=== PATIENT | female | born 1975 | race Asian ===

== ENCOUNTER 2023-03-24 13:23 | Emergency (ER) | payer OTHER ==
[2023-03-24 13:31] VITALS: RESP 18; BMI 29.9
[2023-03-24] MEDS ORDERED: PIPERACILLIN/TAZOB 3.375 GM 3.375 GM in DEXTROSE 5%-WATER - 50 ML IVPB ONE (15:08)
[2023-03-24 15:12] LABS: BASO % 0.7 % (0-2.0); EOS % 2.8 % (0-4.5); HEMATOCRIT 22.7 % (32.4-45.2); HEMOGLOBIN 7.1 GM/dL (10.7-15.3); LYMPH % 25.5 % (8-40); MCH 30.8 pg (25.7-33.7); MCHC 31.1 g/dl (32.0-36.0); MEAN PLT VOLUME 7.9 fl (7.5-11.1); MONO % 10.1 % (3.8-10.2); NEUT % 60.9 % (42.8-82.8); PLATELET COUNT 144 10^3/uL (134-434); RDW 17.2 % (11.6-15.6); WHITE BLOOD COUNT 5.5 K/mm3 (4.0-10.0)
[2023-03-24] MEDS ORDERED: PIPERACILLIN/TAZOB 3.375 GM 3.375 GM/50 ML BAG IVPB ONE (15:17)
[2023-03-24 15:20] LABS: PH,URINE 8.5 (5.0-8.0); URINE APPEARANCE TURBID; URINE BILIRUBIN NEGATIVE (NEGATIVE); URINE COLOR DK YELLOW; URINE GLUCOSE (UA) NEGATIVE (NEGATIVE); URINE KETONE NEGATIVE (NEGATIVE); URINE LEUK ESTERASE NEGATIVE (NEGATIVE); URINE NITRITE NEGATIVE (NEGATIVE); URINE PROTEIN TRACE (NEGATIVE)
[2023-03-24 15:27] LABS: INR 1.59 (0.83-1.09); PROTHROMBIN TIME (PATIENT) 18.4 SEC (9.7-13.0)
[2023-03-24 15:30] LABS: ACTIVATED PTT 33.7 SECONDS (25.2-36.5)
[2023-03-24 15:45] LABS: ALBUMIN 2.7 g/dl (3.4-5.0); CALCIUM 8.3 mg/dL (8.5-10.1); MAGNESIUM 1.7 mg/dL (1.8-2.4)
[2023-03-24] MEDS ORDERED: MAG HYDROX/AL HYDROX/SIMETH -MYLANTA- ORAL SUSPENSION PO ONE (15:46)
[2023-03-24] MEDS ORDERED: FAMOTIDINE 20 MG/50 ML IVPB 20 MG/50 ML MG IVPB ONE ×2 (15:46→16:00)
[2023-03-24 15:48] LABS: CREATININE 0.8 mg/dL (0.55-1.3)
[2023-03-24 15:50] LABS: BILIRUBIN,TOTAL 1.5 mg/dL (0.2-1); TOT PROT 7.8 g/dl (6.4-8.2)
[2023-03-24] MEDS ORDERED: MAG HYDROX/AL HYDROX/SIMETH 30 ML UNIT-DOSE CUP ONE (16:00)
[2023-03-24 16:54] LABS: HCG,QUALITATIVE URINE Negative
[2023-03-24 19:27] VITALS: TEMP 98.7
[2023-03-24 19:29] VITALS: BP 121/71; PULSE 95
== END 2023-03-24 20:53 | disposition left against medical advice (07) ==
LOC: JER 13:23
PROC: 3E033GC Introduction of Other Therapeutic Substance into Peripheral Vein, Percutaneous Approach (ICD-10-PCS; principal; 2023-03-24)
DX: R79.9 Abnormal finding of blood chemistry, unspecified (principal); K70.30 Alcoholic cirrhosis of liver without ascites; D64.9 Anemia, unspecified; R10.13 Epigastric pain; R07.9 Chest pain, unspecified; R10.12 Left upper quadrant pain
CPT/HCPCS: 36415; 36430; 74177-TC; 80053; 81003; 82272; 83690; 83735; 84703; 85025; 85610; 85730; 86850; 86900; 86901; 86922; 93005; 93010; 99285-25; P9058; Q9967

== ENCOUNTER 2023-05-23 06:32 | Emergency (ER) | payer OTHER ==
[2023-05-23 06:42] VITALS: BMI 28.3
[2023-05-23] MEDS ORDERED: LIDOCAINE 5% TOPICAL PATCH TP ONE (07:23)
[2023-05-23] MEDS ORDERED: LACTATED RINGERS SOLUTION 1000 ML INFUS.BAG IV ONE (07:24)
[2023-05-23] MEDS ORDERED: ACETAMINOPHEN 1000 MG/100 ML BAG IVPB ONE ×2 (07:24→12:01)
[2023-05-23] MEDS ORDERED: LIDOCAINE 4% PATCH TP ONE (08:59)
[2023-05-23 09:03] LABS: INR 1.51 (0.83-1.09); PROTHROMBIN TIME (PATIENT) 17.5 SEC (9.7-13.0)
[2023-05-23 09:05] LABS: BASO % 0.7 % (0-2.0); EOS % 4.1 % (0-4.5); HEMATOCRIT 21.7 % (32.4-45.2); LYMPH % 43.2 % (8-40); MCH 25.1 pg (25.7-33.7); MCHC 31.5 g/dl (32.0-36.0); MEAN PLT VOLUME 7.4 fl (7.5-11.1); MONO % 10.4 % (3.8-10.2); NEUT % 41.6 % (42.8-82.8); PLATELET COUNT 149 10^3/uL (134-434); POTASSIUM 3.6 mmol/L (3.5-5.1); RBC 2.72 M/mm3 (3.60-5.2); RDW 18.4 % (11.6-15.6); WHITE BLOOD COUNT 5.1 K/mm3 (4.0-10.0)
[2023-05-23 09:06] LABS: CALCIUM 7.9 mg/dL (8.5-10.1)
[2023-05-23 09:06] LABS: ACTIVATED PTT 32.6 SECONDS (25.2-36.5)
[2023-05-23 09:08] LABS: ALBUMIN 2.5 g/dl (3.4-5.0); BLOOD UREA NITROGEN 10.2 mg/dL (7-18)
[2023-05-23 09:11] LABS: CREATININE 0.6 mg/dL (0.55-1.3)
[2023-05-23 09:12] LABS: HEMOGLOBIN 6.8 GM/dL (10.7-15.3)
[2023-05-23 09:13] LABS: BILIRUBIN,TOTAL 0.6 mg/dL (0.2-1); TOT PROT 7.2 g/dl (6.4-8.2)
[2023-05-23] MEDS ORDERED: MAGNESIUM SULF 50% (8.12 MEQ/2 ML-1 GM VIAL) IVPB ONE (09:37)
[2023-05-23] MEDS ORDERED: MAGNESIUM SULFATE IN WATER 2 GM/50 ML IVPB IVPB ONE (10:13)
[2023-05-23] MEDS ORDERED: ACETAMINOPHEN INJECTION 100 ML IVPB ONE (12:02)
[2023-05-23 16:00] VITALS: RESP 14
[2023-05-23 16:01] VITALS: BP 118/56; PULSE 96; TEMP 97.8
[2023-05-23] MEDS ORDERED: LIDOCAINE PATCH REMOVAL MC SCH (22:00)
== END 2023-05-23 16:31 | disposition left against medical advice (07) ==
LOC: JER 06:32 → JERBED 09:33 → UNDOADMOB 09:33 → JER 16:31
PROC: 3E033GC Introduction of Other Therapeutic Substance into Peripheral Vein, Percutaneous Approach (ICD-10-PCS; principal; 2023-05-23)
PROC: 3E033GC Introduction of Other Therapeutic Substance into Peripheral Vein, Percutaneous Approach (ICD-10-PCS; 2023-05-23)
DX: S39.92XA Unspecified injury of lower back, initial encounter (principal); G89.29 Other chronic pain; M54.9 Dorsalgia, unspecified; D64.9 Anemia, unspecified; F10.929 Alcohol use, unspecified with intoxication, unspecified; W01.198A Fall on same level from slipping, tripping and stumbling with subsequent striking against other object, initial encounter; Y93.89 Activity, other specified
CPT/HCPCS: 36415; 36430; 70450-TC; 71045-TC-FY; 72070-TC-FY; 72170-TC-FY; 80053; 80307; 82140; 82728; 83540; 83550; 83615; 83735; 84466; 84484; 84703; 85025; 85610; 85730; 86850; 86900; 86901; 86922; 93005; 93010; 99285-25; P9058

== ENCOUNTER 2023-05-27 18:39 | Emergency (ER) | payer OTHER ==
[2023-05-27 19:16] VITALS: BP 119/76; PULSE 87; RESP 18; TEMP 97.7; BMI 28.8
[2023-05-27] MEDS ORDERED: LACTATED RINGERS SOLUTION 1000 ML INFUS.BAG IV ONE (19:57)
[2023-05-27] MEDS ORDERED: FAMOTIDINE 20 MG/50 ML IVPB 20 MG/50 ML MG IVPB ONE (20:10)
[2023-05-27] MEDS ORDERED: LIDOCAINE 5% TOPICAL PATCH TP ONE ×2 (20:14→20:35)
[2023-05-27] MEDS ORDERED: PANTOPRAZOLE SODIUM 40 MG VIAL IVPUSH ONE (20:17)
[2023-05-27] MEDS ORDERED: LIDOCAINE 4% PATCH TP ONE ×2 (20:26→20:37)
[2023-05-27] MEDS ORDERED: PANTOPRAZOLE SODIUM 40 MG VIAL ONE (20:27)
[2023-05-27 21:11] LABS: BASO % 0.4 % (0-2.0); EOS % 1.4 % (0-4.5); HEMATOCRIT 28.4 % (32.4-45.2); HEMOGLOBIN 9.1 GM/dL (10.7-15.3); LYMPH % 28.7 % (8-40); MCH 25.3 pg (25.7-33.7); MCHC 31.9 g/dl (32.0-36.0); MEAN CELL VOLUME 79.3 fl (80-96); MEAN PLT VOLUME 7.3 fl (7.5-11.1); NEUT % 64.5 % (42.8-82.8); PLATELET COUNT 120 10^3/uL (134-434); RBC 3.58 M/mm3 (3.60-5.2); RDW 18.3 % (11.6-15.6); WHITE BLOOD COUNT 5.9 K/mm3 (4.0-10.0)
[2023-05-27 21:21] LABS: INR 1.64 (0.83-1.09); PROTHROMBIN TIME (PATIENT) 18.9 SEC (9.7-13.0)
[2023-05-27 21:23] LABS: ACTIVATED PTT 35.9 SECONDS (25.2-36.5)
[2023-05-27 21:30] LABS: POTASSIUM 3.9 mmol/L (3.5-5.1)
[2023-05-27 21:32] LABS: BLOOD UREA NITROGEN 9.7 mg/dL (7-18); CALCIUM 8.2 mg/dL (8.5-10.1); MAGNESIUM 1.6 mg/dL (1.8-2.4)
[2023-05-27 21:33] LABS: ALBUMIN 2.9 g/dl (3.4-5.0)
[2023-05-27] MEDS ORDERED: MAGNESIUM SULF 50% (8.12 MEQ/2 ML-1 GM VIAL) IVPB ONE (21:34)
[2023-05-27 21:35] LABS: CREATININE 0.7 mg/dL (0.55-1.3)
[2023-05-27 21:37] LABS: BILIRUBIN,TOTAL 1.7 mg/dL (0.2-1)
[2023-05-27] MEDS ORDERED: MAGNESIUM SULFATE IN WATER 2 GM/50 ML IVPB IVPB ONE (21:53)
[2023-05-27] MEDS ORDERED: LIDOCAINE PATCH REMOVAL MC SCH ×2 (22:00)
[2023-05-27 22:07] LABS: ANISOCYTOSIS 3+; MACROCYTOSIS 0; OVALOCYTE 1+; TARGET CELLS 1+
== END 2023-05-27 22:50 | disposition home or self-care (01) ==
LOC: JER 18:39 → EDBD 18:39 → JER 22:50
PROC: 3E033NZ Introduction of Analgesics, Hypnotics, Sedatives into Peripheral Vein, Percutaneous Approach (ICD-10-PCS; principal; 2023-05-27)
PROC: 3E033GC Introduction of Other Therapeutic Substance into Peripheral Vein, Percutaneous Approach (ICD-10-PCS; 2023-05-27)
DX: R42 Dizziness and giddiness (principal); M54.6 Pain in thoracic spine; D64.9 Anemia, unspecified; F10.920 Alcohol use, unspecified with intoxication, uncomplicated; Y90.9 Presence of alcohol in blood, level not specified
CPT/HCPCS: 36415; 80053; 82272; 83690; 83735; 85025; 85610; 85730; 86850; 86900; 86901; 99284-25

== ENCOUNTER 2023-12-01 22:31 | Inpatient (IN) | payer OTHER ==
[2023-12-01 22:48] VITALS: BMI 29.2
[2023-12-01] MEDS: SODIUM CHLORIDE 0.9% 500 ML INFUS.BAG IV ONE (23:33)
[2023-12-01 23:37] LABS: BASO % 0.6 % (0-2.0); EOS % 1.4 % (0-4.5); HEMATOCRIT 28.6 % (32.4-45.2); LYMPH % 32.2 % (8-40); MCH 30.9 pg (25.7-33.7); MCHC 35.2 g/dl (32.0-36.0); MEAN CELL VOLUME 87.8 fl (80-96); MEAN PLT VOLUME 8.1 fl (7.5-11.1); MONO % 4.8 % (3.8-10.2); PLATELET COUNT 113 10^3/uL (134-434); RBC 3.25 M/mm3 (3.60-5.2); RDW 18.7 % (11.6-15.6); WHITE BLOOD COUNT 8.5 K/mm3 (4.0-10.0)
[2023-12-01] MEDS ORDERED: diazePAM CARPU-JECT 10 MG/2 ML DISP.SYRIN ONE (23:44)
[2023-12-01] MEDS ORDERED: ONDANSETRON 4 MG/2 ML VIAL ONE (23:45)
[2023-12-01] MEDS ORDERED: PANTOPRAZOLE SODIUM 40 MG VIAL ONE (23:45)
[2023-12-01 23:46] LABS: INR 1.94 (0.83-1.09); PROTHROMBIN TIME (PATIENT) 21.9 SEC (9.7-13.0)
[2023-12-01 23:48] LABS: ACTIVATED PTT 48.6 SECONDS (25.2-36.5)
[2023-12-02 00:08] LABS: POTASSIUM 3.8 mmol/L (3.5-5.1)
[2023-12-02 00:11] LABS: CALCIUM 8.2 mg/dL (8.5-10.1)
[2023-12-02 00:12] LABS: ALBUMIN 2.6 g/dl (3.4-5.0); MAGNESIUM 1.5 mg/dL (1.8-2.4)
[2023-12-02 00:15] LABS: CREATININE 0.9 mg/dL (0.55-1.3); PHOSPHOROUS 2.9 mg/dL (2.5-4.9)
[2023-12-02 00:17] LABS: BILIRUBIN,TOTAL 2.5 mg/dL (0.2-1); TOT PROT 8.1 g/dl (6.4-8.2)
[2023-12-02] MEDS: ONDANSETRON 4 MG/2 ML VIAL IVPUSH ONE (00:21)
[2023-12-02] MEDS: PANTOPRAZOLE SODIUM 40 MG VIAL IVPUSH ONE (00:21)
[2023-12-02] MEDS: diazePAM CARPU-JECT 10 MG/2 ML DISP.SYRIN IVPUSH ONE (00:21)
[2023-12-02] MEDS: LACTATED RINGERS SOLUTION 1000 ML INFUS.BAG IV ONE (00:22)
[2023-12-02 00:30] LABS: BLOOD UREA NITROGEN 8.8 mg/dL (7-18)
[2023-12-02 00:36] VITALS: RESP 16
[2023-12-02] MEDS ORDERED: CEFTRIAXONE 1 GM/50 ML BAG ONE (01:28)
[2023-12-02] MEDS ORDERED: METHOCARBAMOL 500 MG TABLET ONE (01:28)
[2023-12-02] MEDS ORDERED: LIDOCAINE 4% PATCH TP ONE (01:28)
[2023-12-02] MEDS ORDERED: OCTREOTIDE ACETATE 100 MCG/1 ML ONE (01:29)
[2023-12-02] MEDS: METHOCARBAMOL 500 MG TABLET PO ONE (01:45)
[2023-12-02] MEDS: LIDOCAINE 4% PATCH TP ONE (01:45)
[2023-12-02] MEDS: OCTREOTIDE ACETATE 50 MCG/1 ML - 1 ML VIAL IVPUSH ONE (01:46)
[2023-12-02] MEDS: LACTATED RINGERS SOLUTION 1,000 ML/1,000 ML INFUS.BAG IV SCH (01:46)
[2023-12-02] MEDS ORDERED: MAGNESIUM SULFATE IN WATER 2 GM/50 ML IVPB IVPB ONE (01:47)
[2023-12-02] MEDS: MAGNESIUM SULFATE IN WATER 2 GM/50 ML IVPB IVPB ONE (01:55)
[2023-12-02] MEDS: CEFTRIAXONE 1,000 MG in DEXTROSE 5%-WATER - 50 ML IVPB ONE (02:49)
[2023-12-02] MEDS: LACTULOSE 20 GM/30 ML UDC (FOR RECTAL USE ONLY) PR ONE (05:30)
[2023-12-02 07:04] LABS: BILIRUBIN,DIRECT 1.1 mg/dL (0.0-0.2)
[2023-12-02 08:27] LABS: BASO % 0.3 % (0-2.0); EOS % 1.3 % (0-4.5); HEMATOCRIT 26.5 % (32.4-45.2); HEMOGLOBIN 9.1 GM/dL (10.7-15.3); LYMPH % 25.1 % (8-40); MCH 30.8 pg (25.7-33.7); MCHC 34.5 g/dl (32.0-36.0); MEAN CELL VOLUME 89.3 fl (80-96); MEAN PLT VOLUME 7.8 fl (7.5-11.1); MONO % 5.3 % (3.8-10.2); PLATELET COUNT 85 10^3/uL (134-434); RBC 2.97 M/mm3 (3.60-5.2); RDW 18.5 % (11.6-15.6); WHITE BLOOD COUNT 5.4 K/mm3 (4.0-10.0)
[2023-12-02 10:03] VITALS: BP 107/62; PULSE 81; TEMP 98.6
[2023-12-02] MEDS ORDERED: LORazepam 1 MG TABLET PO PRN (11:18)
[2023-12-02] MEDS: FOLIC ACID INJECTION - 1 MG, THIAMINE HCL 100 MG, MULTIVIT INJECTION ADULT 10 ML in SOD... IVPB ONE (12:19)
[2023-12-02] MEDS ORDERED: chlordiazePOXIDE HCL 25 MG CAPSULE PO SCH (17:00)
[2023-12-02] MEDS ORDERED: CARVEDILOL 3.125 MG TABLET (FP) PO SCH (22:00)
[2023-12-02] MEDS ORDERED: LIDOCAINE PATCH REMOVAL MC SCH (22:00)
[2023-12-02] MEDS ORDERED: PANTOPRAZOLE SODIUM 40 MG VIAL IVPUSH SCH (22:00)
[2023-12-02] MEDS ORDERED: RIFAXIMIN 550 MG TABLET PO SCH (22:00)
[2023-12-03] MEDS ORDERED: THIAMINE HCL 200 MG/2 ML VIAL IM SCH (10:00)
[2023-12-03] MEDS ORDERED: FOLIC ACID 1 MG TABLET (FP) PO SCH (10:00)
== END 2023-12-02 12:45 | disposition left against medical advice (07) | DRG 241 ==
LOC: JER 22:31 → JERBED 12-02 06:48
PROVIDERS: ADMIT Internal Medicine; ATTEND Internal Medicine
DX: K29.21 Alcoholic gastritis with bleeding (principal); D69.6 Thrombocytopenia, unspecified; D68.9 Coagulation defect, unspecified; K70.10 Alcoholic hepatitis without ascites; K70.30 Alcoholic cirrhosis of liver without ascites; F10.10 Alcohol abuse, uncomplicated; I10 Essential (primary) hypertension
CPT/HCPCS: 0241U-QW; 36415; 71046-TC-FY; 71275-TC; 76705-TC; 80053; 80307; 82140; 82248; 83690; 83735; 84100; 84484; 84703; 85025; 85379; 85610; 85730; 86850; 86900; 86901; 93005; 93010; 99285-25; Q9967

== ENCOUNTER 2023-12-20 19:09 | Observation (INO) | payer OTHER ==
[2023-12-20 19:19] VITALS: BMI 29.2
[2023-12-20] MEDS ORDERED: ONDANSETRON 4 MG/2 ML VIAL ONE (20:55)
[2023-12-20] MEDS ORDERED: PANTOPRAZOLE SODIUM 40 MG VIAL ONE (20:55)
[2023-12-20 20:59] LABS: BASO % 0.5 % (0-2.0); EOS % 0.8 % (0-4.5); HEMOGLOBIN 9.7 GM/dL (10.7-15.3); LYMPH % 25.1 % (8-40); MCH 30.4 pg (25.7-33.7); MCHC 33.5 g/dl (32.0-36.0); MEAN CELL VOLUME 90.9 fl (80-96); MEAN PLT VOLUME 7.9 fl (7.5-11.1); MONO % 5.2 % (3.8-10.2); NEUT % 68.4 % (42.8-82.8); RBC 3.19 M/mm3 (3.60-5.2); RDW 18.8 % (11.6-15.6); WHITE BLOOD COUNT 3.6 K/mm3 (4.0-10.0)
[2023-12-20 21:01] LABS: PLATELET COUNT 32 10^3/uL (134-434)
[2023-12-20] MEDS: LACTATED RINGERS SOLUTION 1000 ML INFUS.BAG IV ONE (21:04)
[2023-12-20] MEDS: PANTOPRAZOLE SODIUM 40 MG VIAL IVPUSH ONE (21:04)
[2023-12-20] MEDS: ONDANSETRON 4 MG/2 ML VIAL IVPUSH ONE (21:04)
[2023-12-20 21:07] LABS: INR 1.68 (0.83-1.09); PROTHROMBIN TIME (PATIENT) 18.7 SEC (9.7-13.0)
[2023-12-20 21:10] LABS: ACTIVATED PTT 34.3 SECONDS (25.2-36.5)
[2023-12-20 21:27] LABS: CALCIUM 7.6 mg/dL (8.5-10.1)
[2023-12-20 21:28] LABS: ALBUMIN 2.7 g/dl (3.4-5.0); BLOOD UREA NITROGEN 6.7 mg/dL (7-18)
[2023-12-20 21:31] LABS: CREATININE 0.7 mg/dL (0.55-1.3)
[2023-12-20 21:32] LABS: BILIRUBIN,TOTAL 4.3 mg/dL (0.2-1); TOT PROT 7.7 g/dl (6.4-8.2)
[2023-12-20] MEDS ORDERED: POTASSIUM CHLORIDE ORAL LIQUID 20 MEQ/15 ML ONE (21:56)
[2023-12-20] MEDS: POTASSIUM CHLORIDE ORAL LIQUID 20 MEQ/15 ML PO ONE (22:00)
[2023-12-20] MEDS ORDERED: diazePAM CARPU-JECT 10 MG/2 ML DISP.SYRIN ONE (22:57)
[2023-12-20] MEDS: diazePAM CARPU-JECT 10 MG/2 ML DISP.SYRIN IVPUSH ONE (23:05)
[2023-12-21] MEDS: IBUPROFEN 800 MG/8 ML IJ IVPB PRN (03:46)
[2023-12-21] MEDS: LIDOCAINE 5% TOPICAL PATCH TP ONE (03:46)
[2023-12-21] MEDS ORDERED: diazePAM 5 MG TABLET PO PRN (03:52)
[2023-12-21] MEDS: POTASSIUM CHLORIDE ORAL LIQUID 20 MEQ/15 ML PO ONE (04:42)
[2023-12-21] MEDS: KCL 10 MEQ IVPB 10 MEQ/100 ML INFUS.BAG IVPB SCH (04:43)
[2023-12-21] MEDS: SODIUM CHLORIDE 1,000 ML IV SCH (04:43)
[2023-12-21] MEDS: diazePAM 5 MG TABLET PO SCH (05:04)
[2023-12-21] MEDS: FOLIC ACID INJECTION - 1 MG, THIAMINE HCL 100 MG, MULTIVIT INJECTION ADULT 10 ML in SOD... IVPB ONE (06:40)
[2023-12-21 07:52] LABS: BASO % 0.6 % (0-2.0); EOS % 2.3 % (0-4.5); LYMPH % 33.7 % (8-40); MCHC 33.3 g/dl (32.0-36.0); MEAN CELL VOLUME 92.9 fl (80-96); MONO % 6.9 % (3.8-10.2); NEUT % 56.5 % (42.8-82.8); RBC 2.91 M/mm3 (3.60-5.2); RDW 18.5 % (11.6-15.6); WHITE BLOOD COUNT 2.7 K/mm3 (4.0-10.0)
[2023-12-21 08:01] LABS: PLATELET COUNT 28 10^3/uL (134-434)
[2023-12-21 08:12] LABS: CHLORIDE 107 mmol/L (98-107); POTASSIUM 3.9 mmol/L (3.5-5.1); SODIUM 138 mmol/L (136-145)
[2023-12-21 08:14] LABS: CALCIUM 7.2 mg/dL (8.5-10.1)
[2023-12-21 08:15] LABS: ALBUMIN 2.4 g/dl (3.4-5.0); ANION GAP 9 mmol/L (4-13); CO2 23 mmol/L (21-32); GLUCOSE,RANDOM 77 mg/dL (74-106); MAGNESIUM 1.6 mg/dL (1.8-2.4)
[2023-12-21 08:16] LABS: ALBUMIN 2.5 g/dl (3.4-5.0)
[2023-12-21 08:18] LABS: BILIRUBIN,DIRECT 2.7 mg/dL (0.0-0.2); CREATININE 0.7 mg/dL (0.55-1.3); PHOSPHOROUS 1.7 mg/dL (2.5-4.9); SGOT/AST 340 U/L (15-37); SGPT/ALT 92 U/L (13-61)
[2023-12-21 08:19] LABS: BILIRUBIN,TOTAL 4.3 mg/dL (0.2-1); TOT PROT 7.1 g/dl (6.4-8.2)
[2023-12-21 08:20] LABS: ALK PHOS 150 U/L (45-117); BILIRUBIN,TOTAL 4.8 mg/dL (0.2-1); TOT PROT 7.1 g/dl (6.4-8.2)
[2023-12-21] MEDS ORDERED: LORazepam 1 MG TABLET PO PRN (09:58)
[2023-12-21] MEDS ORDERED: LIDOCAINE 4% PATCH TP SCH (10:00)
[2023-12-21] MEDS: CARVEDILOL 6.25 MG TABLET (FP) PO SCH (10:36)
[2023-12-21] MEDS: LORazepam 1 MG TABLET PO SCH (10:37)
[2023-12-21] MEDS: RIFAXIMIN 550 MG TABLET PO SCH (10:37)
[2023-12-21] MEDS: LORazepam 2 MG TABLET PO ONE (10:39)
[2023-12-21] MEDS: PANTOPRAZOLE SODIUM 40 MG VIAL IVPUSH SCH (10:39)
[2023-12-21] MEDS: LACTULOSE 20 GM/30 ML UDC (FOR ORAL USE ONLY) PO SCH (10:39)
[2023-12-21] MEDS ORDERED: PrednisoLONE 15 MG/5 ML UNIT-DOSE CUP PO ONE (11:00)
[2023-12-21 11:14] LABS: INR 1.75 (0.83-1.09); PROTHROMBIN TIME (PATIENT) 19.8 SEC (9.7-13.0)
[2023-12-21] MEDS: PrednisoLONE 15 MG/5 ML UNIT-DOSE CUP PO ONE (12:26)
[2023-12-21] MEDS ORDERED: MIDAZOLAM HCL 2 MG/2 ML SINGLE DOSE VIAL ONE (14:24)
[2023-12-21] MEDS: TETRACAINE/BENZOCAINE/BUTAMBEN 20 GM SPR TP ONE (14:32)
[2023-12-21] MEDS: METHYL SALICYLATE/MENTHOL 30 GM TUBE TP SCH (15:11)
[2023-12-21] MEDS: CEFTRIAXONE 1 GM in DEXTROSE 5%-WATER - 50 ML IVPB SCH (15:34)
[2023-12-21] MEDS: PrednisoLONE 15 MG/5 ML UNIT-DOSE CUP PO SCH (15:34)
[2023-12-21] MEDS: LIDOCAINE PATCH REMOVAL MC ONE (15:34)
[2023-12-21] MEDS: MAGNESIUM 2GM/50ML STERILE WATER IVPB IVPB ONE (17:56)
[2023-12-21 18:14] VITALS: RESP 16
[2023-12-21 21:43] VITALS: BP 122/79; PULSE 89; TEMP 98.2
[2023-12-21] MEDS ORDERED: LIDOCAINE PATCH REMOVAL MC SCH (22:00)
[2023-12-21] MEDS ORDERED: PANTOPRAZOLE SODIUM 40 MG VIAL IVPUSH SCH (22:00)
[2023-12-22] MEDS ORDERED: diazePAM 5 MG TABLET PO SCH (06:00)
[2023-12-22] MEDS ORDERED: LACTULOSE 20 GM/30 ML UDC (FOR ORAL USE ONLY) PO SCH (10:00)
[2023-12-23] MEDS ORDERED: LORazepam 1 MG TABLET PO SCH (05:00)
[2023-12-23] MEDS ORDERED: diazePAM 5 MG TABLET PO SCH (06:00)
[2023-12-24] MEDS ORDERED: LORazepam 0.5 MG TABLET PO PRN
[2023-12-24] MEDS ORDERED: LORazepam 0.5 MG TABLET PO SCH (05:00)
[2023-12-24] MEDS ORDERED: diazePAM 5 MG TABLET PO ONE (06:00)
[2023-12-25] MEDS ORDERED: LORazepam 0.5 MG TABLET PO ONE (05:00)
== END 2023-12-21 21:00 | disposition left against medical advice (07) ==
LOC: JER 19:09 → JERBED 22:09 → J4W 12-21 03:39
PROVIDERS: ADMIT Internal Medicine; ATTEND Internal Medicine
PROC: 3E03329 Introduction of Other Anti-infective into Peripheral Vein, Percutaneous Approach (ICD-10-PCS; principal; 2023-12-20)
PROC: 3E033GC Introduction of Other Therapeutic Substance into Peripheral Vein, Percutaneous Approach (ICD-10-PCS; 2023-12-20)
PROC: 3E0337Z Introduction of Electrolytic and Water Balance Substance into Peripheral Vein, Percutaneous Approach (ICD-10-PCS; 2023-12-20)
PROC: 3E033NZ Introduction of Analgesics, Hypnotics, Sedatives into Peripheral Vein, Percutaneous Approach (ICD-10-PCS; 2023-12-20)
DX: K27.9 Peptic ulcer, site unspecified, unspecified as acute or chronic, without hemorrhage or perforation (principal); D69.6 Thrombocytopenia, unspecified; F10.99 Alcohol use, unspecified with unspecified alcohol-induced disorder; I85.00 Esophageal varices without bleeding; K70.31 Alcoholic cirrhosis of liver with ascites; R74.01 Elevation of levels of liver transaminase levels; E87.6 Hypokalemia; Z29.89 Encounter for other specified prophylactic measures; K76.82 Hepatic encephalopathy; K76.6 Portal hypertension
CPT/HCPCS: 36415; 36430; 71045-TC-FY; 80053; 80076; 83690; 83735; 84100; 84702; 85025; 85610; 85730; 86922; 87635; 93005; 93010; 96361; 96365; 96367; 96375; 96376; 99285-25; G0378; P9034

== ENCOUNTER 2023-12-28 14:13 | Inpatient (IN) | payer OTHER ==
[2023-12-28 14:26] VITALS: BP 115/79; PULSE 100; RESP 18; TEMP 98.3; BMI 29.2
[2023-12-28] MEDS ORDERED: TRIMETHOBENZAMIDE HCL 200MG/2ML INJ IM ONE (15:58)
[2023-12-28 16:11] LABS: BASO % 0.9 % (0-2.0); EOS % 2.1 % (0-4.5); HEMATOCRIT 28.8 % (32.4-45.2); HEMOGLOBIN 9.4 GM/dL (10.7-15.3); MCH 30.1 pg (25.7-33.7); MCHC 32.5 g/dl (32.0-36.0); MEAN CELL VOLUME 92.7 fl (80-96); MEAN PLT VOLUME 7.4 fl (7.5-11.1); MONO % 16.3 % (3.8-10.2); NEUT % 55.7 % (42.8-82.8); PLATELET COUNT 70 10^3/uL (134-434); RBC 3.11 M/mm3 (3.60-5.2); RDW 21.8 % (11.6-15.6)
[2023-12-28] MEDS: SODIUM CHLORIDE 1,000 ML IV STA (16:20)
[2023-12-28] MEDS: TRIMETHOBENZAMIDE HCL 200MG/2ML INJ IM ONE (16:21)
[2023-12-28 16:32] LABS: POTASSIUM 3.6 mmol/L (3.5-5.1)
[2023-12-28 16:34] LABS: CALCIUM 7.6 mg/dL (8.5-10.1)
[2023-12-28 16:35] LABS: ALBUMIN 2.3 g/dl (3.4-5.0); BLOOD UREA NITROGEN 9.4 mg/dL (7-18); MAGNESIUM 1.7 mg/dL (1.8-2.4)
[2023-12-28 16:38] LABS: CREATININE 0.6 mg/dL (0.55-1.3)
[2023-12-28 16:39] LABS: BILIRUBIN,TOTAL 3.1 mg/dL (0.2-1); TOT PROT 7.3 g/dl (6.4-8.2)
[2023-12-28 16:49] LABS: ANISOCYTOSIS 2+; MACROCYTOSIS 1+; TARGET CELLS 1+
[2023-12-28] MEDS ORDERED: TRIMETHOBENZAMIDE HCL 200MG/2ML INJ IM PRN (17:44)
[2023-12-28] MEDS ORDERED: MAGNESIUM SULF 50% (8.12 MEQ/2 ML-1 GM VIAL) IVPB ONE (17:48)
[2023-12-28] MEDS ORDERED: MULTIVITAMINS (DAILY MVI) TABLET (FP) PO SCH (18:15)
[2023-12-28] MEDS ORDERED: THIAMINE 100 MG TABLET PO SCH (22:00)
[2023-12-28] MEDS ORDERED: RIFAXIMIN 550 MG TABLET PO SCH (22:00)
[2023-12-28] MEDS ORDERED: LACTULOSE 20 GM/30 ML UDC (FOR ORAL USE ONLY) PO SCH (22:00)
[2023-12-28] MEDS ORDERED: CARVEDILOL 6.25 MG TABLET (FP) PO SCH (22:00)
[2023-12-29] MEDS ORDERED: FOLIC ACID 1 MG TABLET (FP) PO SCH (10:00)
== END 2023-12-28 18:10 | disposition left against medical advice (07) | DRG 282 ==
LOC: JER 14:13 → JERBED 16:56
PROVIDERS: ADMIT Internal Medicine; ATTEND Internal Medicine
DX: K85.90 Acute pancreatitis without necrosis or infection, unspecified (principal); E83.42 Hypomagnesemia; K70.30 Alcoholic cirrhosis of liver without ascites; K70.10 Alcoholic hepatitis without ascites; F10.10 Alcohol abuse, uncomplicated; R11.2 Nausea with vomiting, unspecified
CPT/HCPCS: 0241U-QW; 36415; 71046-TC-FY; 80053; 83690; 83735; 84484; 85025; 93005; 93010; 99285-25

== ENCOUNTER 2023-12-28 22:18 | Inpatient (IN) | payer OTHER ==
[2023-12-28 22:31] VITALS: TEMP 97.7; BMI 29.2
[2023-12-28 23:44] LABS: HEMATOCRIT 30.5 % (32.4-45.2); HEMOGLOBIN 9.8 GM/dL (10.7-15.3); MCH 29.9 pg (25.7-33.7); MEAN CELL VOLUME 93.5 fl (80-96); MEAN PLT VOLUME 7.3 fl (7.5-11.1); PLATELET COUNT 78 10^3/uL (134-434); RBC 3.27 M/mm3 (3.60-5.2); RDW 22.8 % (11.6-15.6); WHITE BLOOD COUNT 3.4 K/mm3 (4.0-10.0)
[2023-12-28] MEDS ORDERED: ACETAMINOPHEN INJECTION 100 ML IVPB ONE (23:44)
[2023-12-28] MEDS: ACETAMINOPHEN 1000 MG/100 ML BAG IVPB ONE (23:47)
[2023-12-29 00:05] LABS: CHLORIDE 112 mmol/L (98-107); POTASSIUM 3.7 mmol/L (3.5-5.1); SODIUM 144 mmol/L (136-145)
[2023-12-29 00:07] LABS: CALCIUM 7.8 mg/dL (8.5-10.1)
[2023-12-29 00:08] LABS: ALBUMIN 2.4 g/dl (3.4-5.0); ANION GAP 9 mmol/L (4-13); BLOOD UREA NITROGEN 9.2 mg/dL (7-18); CO2 24 mmol/L (21-32); GLUCOSE,RANDOM 125 mg/dL (74-106); MAGNESIUM 1.7 mg/dL (1.8-2.4)
[2023-12-29 00:11] LABS: CREATININE 0.6 mg/dL (0.55-1.3); SGOT/AST 342 U/L (15-37); SGPT/ALT 99 U/L (13-61)
[2023-12-29 00:12] LABS: BILIRUBIN,TOTAL 3.6 mg/dL (0.2-1); TOT PROT 7.4 g/dl (6.4-8.2)
[2023-12-29 00:14] LABS: ALK PHOS 254 U/L (45-117)
[2023-12-29] MEDS ORDERED: MAGNESIUM SULFATE IN WATER 2 GM/50 ML IVPB IVPB ONE (02:48)
[2023-12-29] MEDS: MAGNESIUM 2GM/50ML STERILE WATER IVPB IVPB ONE (02:51)
[2023-12-29] MEDS ORDERED: LORazepam 1 MG TABLET PO PRN (04:27)
[2023-12-29] MEDS ORDERED: LORazepam 1 MG TABLET ONE ×2 (05:17→10:38)
[2023-12-29] MEDS: LORazepam 1 MG TABLET PO ONE (05:19)
[2023-12-29] MEDS: LORazepam 1 MG TABLET PO SCH (05:21)
[2023-12-29 05:57] LABS: BASO % 1.2 % (0-2.0); EOS % 1.7 % (0-4.5); HEMATOCRIT 27.3 % (32.4-45.2); HEMOGLOBIN 8.8 GM/dL (10.7-15.3); MCH 30.2 pg (25.7-33.7); MCHC 32.5 g/dl (32.0-36.0); MEAN CELL VOLUME 93.1 fl (80-96); MEAN PLT VOLUME 7.4 fl (7.5-11.1); MONO % 14.9 % (3.8-10.2); NEUT % 47.2 % (42.8-82.8); PLATELET COUNT 64 10^3/uL (134-434); RBC 2.93 M/mm3 (3.60-5.2); RDW 21.8 % (11.6-15.6); WHITE BLOOD COUNT 3.1 K/mm3 (4.0-10.0)
[2023-12-29 06:17] LABS: POTASSIUM 3.6 mmol/L (3.5-5.1)
[2023-12-29 06:19] LABS: CALCIUM 7.6 mg/dL (8.5-10.1)
[2023-12-29 06:20] LABS: ALBUMIN 2.2 g/dl (3.4-5.0); BLOOD UREA NITROGEN 9.2 mg/dL (7-18); MAGNESIUM 2.2 mg/dL (1.8-2.4)
[2023-12-29 06:22] LABS: CHOLESTEROL 141 mg/dL (50-200)
[2023-12-29 06:23] LABS: BILIRUBIN,DIRECT 2.1 mg/dL (0.0-0.2); CREATININE 0.5 mg/dL (0.55-1.3); PHOSPHOROUS 2.8 mg/dL (2.5-4.9)
[2023-12-29 06:24] LABS: BILIRUBIN,TOTAL 3.1 mg/dL (0.2-1); LDL CHOLESTEROL (ONLY SJRH) 75 mg/dL (5-100)
[2023-12-29 06:25] LABS: BILIRUBIN,TOTAL 3.1 mg/dL (0.2-1); HDL CHOLESTEROL 26 mg/dL (40-60); TOT PROT 6.8 g/dl (6.4-8.2)
[2023-12-29 09:26] VITALS: BP 127/72; PULSE 88; RESP 18
[2023-12-29] MEDS ORDERED: FOLIC ACID 1 MG TABLET (FP) ONE (10:36)
[2023-12-29] MEDS ORDERED: CARVEDILOL 6.25 MG TABLET (FP) ONE (10:39)
[2023-12-29] MEDS ORDERED: LACTULOSE 20 GM/30 ML UDC (FOR ORAL USE ONLY) ONE (10:39)
[2023-12-29] MEDS ORDERED: PANTOPRAZOLE SODIUM 40 MG VIAL ONE (10:39)
[2023-12-29] MEDS ORDERED: THIAMINE HCL 200 MG/2 ML VIAL ONE (10:41)
[2023-12-29] MEDS: PANTOPRAZOLE SODIUM 40 MG VIAL IVPUSH SCH (10:45)
[2023-12-29] MEDS: THIAMINE HCL 200 MG/2 ML VIAL IVPB ONE (10:45)
[2023-12-29] MEDS: CARVEDILOL 6.25 MG TABLET (FP) PO SCH (10:45)
[2023-12-29] MEDS: FOLIC ACID 1 MG TABLET (FP) PO SCH (10:45)
[2023-12-29] MEDS: LACTULOSE 20 GM/30 ML UDC (FOR ORAL USE ONLY) PO SCH (10:45)
[2023-12-29] MEDS: RIFAXIMIN 550 MG TABLET PO SCH (12:17)
[2023-12-29 12:27] LABS: INR 1.67 (0.83-1.09); PROTHROMBIN TIME (PATIENT) 18.9 SEC (9.7-13.0)
[2023-12-29 12:30] LABS: ACTIVATED PTT 37.6 SECONDS (25.2-36.5)
[2023-12-29] MEDS ORDERED: ALBUTEROL SO4 0.083% IH SOL 2.5 MG/3 ML VIAL.NEB. NEB ONE (13:49)
[2023-12-29] MEDS: FOLIC ACID INJECTION - 1 MG, THIAMINE HCL 100 MG, MULTIVIT INJECTION ADULT 10 ML in SOD... IVPB ONE (14:09)
[2023-12-29] MEDS: ALBUTEROL SO4 0.083% IH SOL 2.5 MG/3 ML VIAL.NEB. NEB SCH (14:09)
[2023-12-29] MEDS ORDERED: LACTATED RINGERS SOLUTION 1,000 ML/1,000 ML INFUS.BAG IV SCH ×2 (14:30)
[2023-12-30] MEDS ORDERED: LORazepam 1 MG TABLET PO SCH (05:00)
[2023-12-30] MEDS ORDERED: THIAMINE HCL 200 MG/2 ML VIAL IVPB SCH (10:00)
[2023-12-31] MEDS ORDERED: LORazepam 0.5 MG TABLET PO PRN
[2023-12-31] MEDS ORDERED: LORazepam 0.5 MG TABLET PO SCH (05:00)
[2024-01-01] MEDS ORDERED: LORazepam 0.5 MG TABLET PO ONE (05:00)
== END 2023-12-29 14:33 | disposition left against medical advice (07) | DRG 137 ==
LOC: JER 22:18 → JERBED 22:45
PROVIDERS: ADMIT Internal Medicine; ATTEND Internal Medicine
DX: U07.1 COVID-19 (principal); K85.20 Alcohol induced acute pancreatitis without necrosis or infection; K70.31 Alcoholic cirrhosis of liver with ascites; F10.20 Alcohol dependence, uncomplicated; R06.02 Shortness of breath; R11.2 Nausea with vomiting, unspecified
CPT/HCPCS: 0241U-QW; 36415; 70450-TC; 80053; 80061; 80076; 80307; 83036; 83690; 83735; 84100; 84484; 84702; 85025; 85027; 85610; 85730; 86705; 86708; 86850; 86900; 86901; 87340; 87902; 93005; 93010; 93306-TC; 99285-25; J0131

== ENCOUNTER 2023-12-30 17:54 | Inpatient (IN) | payer OTHER ==
[2023-12-30 18:02] VITALS: BMI 29.2
[2023-12-30 18:58] LABS: HEMATOCRIT 27.5 % (32.4-45.2); MCH 30.1 pg (25.7-33.7); MCHC 32.7 g/dl (32.0-36.0); MEAN CELL VOLUME 92.1 fl (80-96); MEAN PLT VOLUME 8.2 fl (7.5-11.1); PLATELET COUNT 76 10^3/uL (134-434); RBC 2.98 M/mm3 (3.60-5.2); RDW 22.8 % (11.6-15.6); WHITE BLOOD COUNT 3.6 K/mm3 (4.0-10.0)
[2023-12-30 19:17] LABS: POTASSIUM 3.9 mmol/L (3.5-5.1)
[2023-12-30 19:19] LABS: ALBUMIN 2.2 g/dl (3.4-5.0); CALCIUM 7.9 mg/dL (8.5-10.1)
[2023-12-30 19:20] LABS: BLOOD UREA NITROGEN 9.7 mg/dL (7-18); MAGNESIUM 1.8 mg/dL (1.8-2.4)
[2023-12-30 19:23] LABS: CREATININE 0.5 mg/dL (0.55-1.3); PHOSPHOROUS 1.9 mg/dL (2.5-4.9)
[2023-12-30 19:24] LABS: BILIRUBIN,TOTAL 3.7 mg/dL (0.2-1)
[2023-12-30] MEDS ORDERED: LACTULOSE 20 GM/30 ML UDC (FOR ORAL USE ONLY) ONE (21:55)
[2023-12-30] MEDS ORDERED: CARVEDILOL 6.25 MG TABLET (FP) ONE (21:55)
[2023-12-30] MEDS ORDERED: LORazepam 1 MG TABLET PO PRN (21:58)
[2023-12-30] MEDS ORDERED: MORPHINE SULFATE 2 MG/ML SYRINGE IVPUSH PRN (22:05)
[2023-12-30] MEDS: LACTATED RINGERS SOLUTION 1,000 ML/1,000 ML INFUS.BAG IV SCH (22:09)
[2023-12-30] MEDS: CARVEDILOL 6.25 MG TABLET (FP) PO SCH (22:10)
[2023-12-30] MEDS: LACTULOSE 20 GM/30 ML UDC (FOR ORAL USE ONLY) PO SCH (22:10)
[2023-12-30] MEDS: RIFAXIMIN 550 MG TABLET PO SCH (22:52)
[2023-12-30] MEDS: POTASSIUM PHOSPHATE 30 MM in SODIUM CHLORIDE 500 ML IVPB ONE (23:00)
[2023-12-30 23:25] LABS: METHADONE, UR NEGATIVE (NEGATIVE); OPIATES, URI NEGATIVE (NEGATIVE); PHENCYCLIDINE,URINE NEGATIVE (NEGATIVE); URINE BARBITURATES NEGATIVE (NEGATIVE); URINE BENZODIAZEPINES NEGATIVE (NEGATIVE)
[2023-12-30 23:28] LABS: COCAINE, UR NEGATIVE (NEGATIVE); URINE AMPHETAMINES NEGATIVE (NEGATIVE)
[2023-12-30] MEDS: LORazepam 2 MG TABLET PO SCH (23:28)
[2023-12-30] MEDS: LORazepam 1 MG TABLET PO ONE (23:28)
[2023-12-31] MEDS: LORazepam 2 MG/ML SDV VIAL IVPUSH SCH (00:55)
[2023-12-31] MEDS ORDERED: LORazepam 1 MG TABLET PO SCH (05:00)
[2023-12-31 06:11] VITALS: RESP 18
[2023-12-31 09:37] LABS: INR 1.66 (0.83-1.09); PROTHROMBIN TIME (PATIENT) 18.8 SEC (9.7-13.0)
[2023-12-31 09:40] LABS: ACTIVATED PTT 35.4 SECONDS (25.2-36.5)
[2023-12-31 09:52] LABS: HEMOGLOBIN 7.8 GM/dL (10.7-15.3); MCH 30.1 pg (25.7-33.7); MCHC 32.4 g/dl (32.0-36.0); MEAN CELL VOLUME 92.8 fl (80-96); PLATELET COUNT 55 10^3/uL (134-434); RBC 2.59 M/mm3 (3.60-5.2); RDW 22.7 % (11.6-15.6); WHITE BLOOD COUNT 2.2 K/mm3 (4.0-10.0)
[2023-12-31 09:58] LABS: POTASSIUM 4.1 mmol/L (3.5-5.1)
[2023-12-31 10:24] LABS: ALBUMIN 2.1 g/dl (3.4-5.0)
[2023-12-31 10:25] LABS: BILIRUBIN,TOTAL 3.8 mg/dL (0.2-1)
[2023-12-31 10:26] LABS: TOT PROT 6.4 g/dl (6.4-8.2)
[2023-12-31 10:27] LABS: CREATININE 0.4 mg/dL (0.55-1.3); PHOSPHOROUS 4.1 mg/dL (2.5-4.9)
[2023-12-31 10:29] LABS: CALCIUM 7.7 mg/dL (8.5-10.1)
[2023-12-31 10:34] LABS: MAGNESIUM 1.7 mg/dL (1.8-2.4)
[2023-12-31 10:50] LABS: ANISOCYTOSIS 0; MACROCYTOSIS 0
[2023-12-31] MEDS: FOLIC ACID 1 MG TABLET (FP) PO SCH (10:54)
[2023-12-31] MEDS: MULTIVITAMINS (DAILY MVI) TABLET (FP) PO SCH (10:54)
[2023-12-31] MEDS: PANTOPRAZOLE SODIUM 40 MG VIAL IVPUSH SCH (10:55)
[2023-12-31] MEDS: SPIRONOLACTONE 25 MG TABLET PO SCH (14:16)
[2023-12-31] MEDS: FUROSEMIDE 20 MG TABLET (FP) PO SCH (14:16)
[2023-12-31] MEDS: THIAMINE 100 MG TABLET PO SCH (14:19)
[2023-12-31 15:30] VITALS: BP 100/71; PULSE 92; TEMP 98.2
[2024-01-01] MEDS ORDERED: LORazepam 0.5 MG TABLET PO PRN
[2024-01-01] MEDS ORDERED: LORazepam 0.5 MG TABLET PO SCH (05:00)
[2024-01-01] MEDS ORDERED: PANTOPRAZOLE 20 MG TABLET PO SCH (10:00)
[2024-01-02] MEDS ORDERED: LORazepam 0.5 MG TABLET PO ONE (05:00)
== END 2023-12-31 18:54 | disposition left against medical advice (07) | DRG 280 ==
LOC: JER 17:54 → JERBED 19:41 → J8W 12-31 00:18 → OBSVTOIN 12-31 14:42
PROVIDERS: ADMIT Internal Medicine; ATTEND Internal Medicine
DX: K70.11 Alcoholic hepatitis with ascites (principal); U07.1 COVID-19; J90 Pleural effusion, not elsewhere classified; D61.818 Other pancytopenia; K70.31 Alcoholic cirrhosis of liver with ascites; E46 Unspecified protein-calorie malnutrition; E83.39 Other disorders of phosphorus metabolism; D64.9 Anemia, unspecified; F10.10 Alcohol abuse, uncomplicated; R73.03 Prediabetes; Z68.29 Body mass index [BMI] 29.0-29.9, adult
CPT/HCPCS: 0241U-QW; 36415; 71045-TC-FY; 71250-TC; 80053; 80307; 83690; 83735; 84100; 84703; 85025; 85027; 85610; 85730; 93005; 93010; 99285-25; G0378

== ENCOUNTER 2024-01-01 00:08 | Inpatient (IN) | payer OTHER ==
[2024-01-01 00:32] VITALS: BMI 28.9
[2024-01-01] MEDS ORDERED: ALBUTEROL SO4 2.5/IPRATROPIUM 0.5 INH SOL 3 ML VIAL.NEB. NEB ONE (01:41)
[2024-01-01] MEDS: ALBUTEROL SO4 2.5/IPRATROPIUM 0.5 INH SOL 3 ML VIAL.NEB. NEB ONE (01:57)
[2024-01-01 02:03] LABS: BASO % 0.7 % (0-2.0); EOS % 1.9 % (0-4.5); HEMATOCRIT 24.4 % (32.4-45.2); HEMOGLOBIN 7.9 GM/dL (10.7-15.3); MCH 29.8 pg (25.7-33.7); MCHC 32.4 g/dl (32.0-36.0); MEAN PLT VOLUME 7.9 fl (7.5-11.1); MONO % 18.5 % (3.8-10.2); NEUT % 51.9 % (42.8-82.8); PLATELET COUNT 56 10^3/uL (134-434); RBC 2.65 M/mm3 (3.60-5.2); RDW 22.7 % (11.6-15.6); WHITE BLOOD COUNT 2.7 K/mm3 (4.0-10.0)
[2024-01-01 02:12] LABS: INR 1.7 (0.83-1.09); PROTHROMBIN TIME (PATIENT) 19.2 SEC (9.7-13.0)
[2024-01-01 02:15] LABS: ACTIVATED PTT 34.4 SECONDS (25.2-36.5)
[2024-01-01 02:25] LABS: POTASSIUM 3.9 mmol/L (3.5-5.1)
[2024-01-01 02:27] LABS: CALCIUM 7.9 mg/dL (8.5-10.1)
[2024-01-01 02:28] LABS: BLOOD UREA NITROGEN 9.5 mg/dL (7-18); MAGNESIUM 1.6 mg/dL (1.8-2.4)
[2024-01-01 02:31] LABS: CREATININE 0.6 mg/dL (0.55-1.3); PHOSPHOROUS 2.2 mg/dL (2.5-4.9)
[2024-01-01 02:32] LABS: BILIRUBIN,TOTAL 3.8 mg/dL (0.2-1); TOT PROT 6.4 g/dl (6.4-8.2)
[2024-01-01 05:06] LABS: ANISOCYTOSIS 1+
[2024-01-01] MEDS ORDERED: MORPHINE SULFATE 2 MG/ML SYRINGE IVPUSH PRN (08:06)
[2024-01-01] MEDS ORDERED: SODIUM PHOSPHATE - 0 MM in DEXTROSE 5%-WATER - 250 ML IVPB ONE (08:12)
[2024-01-01] MEDS ORDERED: MAGNESIUM SULFATE IN WATER 2 GM/50 ML IVPB IVPB ONE (08:25)
[2024-01-01] MEDS: LACTATED RINGERS SOLUTION 1,000 ML IV SCH (08:27)
[2024-01-01] MEDS: MAGNESIUM SULF 50% (8.12 MEQ/2 ML-1 GM VIAL) IVPB ONE (08:27)
[2024-01-01] MEDS ORDERED: PANTOPRAZOLE SODIUM 40 MG VIAL ONE (10:10)
[2024-01-01] MEDS: PANTOPRAZOLE SODIUM 40 MG VIAL IVPUSH SCH (10:14)
[2024-01-01 10:31] VITALS: RESP 17
[2024-01-01] MEDS ORDERED: LACTATED RINGERS SOLUTION 1,000 ML IV SCH (10:43)
[2024-01-01] MEDS: FOLIC ACID 1 MG TABLET (FP) PO SCH (11:57)
[2024-01-01] MEDS: THIAMINE HCL 200 MG/2 ML VIAL IVPB ONE (11:57)
[2024-01-01] MEDS: NAPH,MB-DB/K PH,MBDB POWDER PACKET PO ONE (11:57)
[2024-01-01] MEDS: PrednisoLONE 15 MG/5 ML UNIT-DOSE CUP PO SCH (12:53)
[2024-01-01 14:45] VITALS: BP 115/79; PULSE 101; TEMP 98.8
[2024-01-01] MEDS: SPIRONOLACTONE 25 MG TABLET PO SCH (16:04)
[2024-01-01] MEDS: FUROSEMIDE 20 MG TABLET (FP) PO SCH (16:04)
[2024-01-01] MEDS ORDERED: RIFAXIMIN 550 MG TABLET PO SCH (22:00)
[2024-01-01] MEDS ORDERED: CARVEDILOL 6.25 MG TABLET (FP) PO SCH (22:00)
[2024-01-02] MEDS ORDERED: THIAMINE 100 MG TABLET PO SCH (10:00)
== END 2024-01-01 18:55 | disposition left against medical advice (07) | DRG 280 ==
LOC: JER 00:08 → JERBED 04:13 → J8W 10:44
PROVIDERS: ADMIT Internal Medicine; ATTEND Internal Medicine
DX: K70.31 Alcoholic cirrhosis of liver with ascites (principal); D61.818 Other pancytopenia; J90 Pleural effusion, not elsewhere classified; U07.1 COVID-19; K70.11 Alcoholic hepatitis with ascites; D69.6 Thrombocytopenia, unspecified; E11.9 Type 2 diabetes mellitus without complications; I10 Essential (primary) hypertension; R11.2 Nausea with vomiting, unspecified; D64.9 Anemia, unspecified; I85.00 Esophageal varices without bleeding; F10.20 Alcohol dependence, uncomplicated
CPT/HCPCS: 36415; 71045-TC-FY; 80053; 80307; 82140; 83690; 83735; 84100; 85025; 85610; 85730; 93005; 93010; 99285-25

== ENCOUNTER 2024-01-03 22:37 | Observation (INO) | payer OTHER ==
[2024-01-04] MEDS ORDERED: METOCLOPRAMIDE HCL INJECTION 10 MG/2 ML VIAL ONE (00:35)
[2024-01-04] MEDS ORDERED: FAMOTIDINE 20 MG/50 ML IVPB 20 MG/50 ML MG IVPB ONE (00:35)
[2024-01-04] MEDS: METOCLOPRAMIDE HCL INJECTION 10 MG/2 ML VIAL IVPB ONE (01:07)
[2024-01-04] MEDS: FAMOTIDINE 20 MG/50 ML IVPB 20 MG/50 ML MG IVPB ONE (01:07)
[2024-01-04] MEDS: SODIUM CHLORIDE 0.9% 500 ML INFUS.BAG IV ONE (01:07)
[2024-01-04] MEDS: ACETAMINOPHEN 1000 MG/100 ML BAG IVPB ONE (01:07)
[2024-01-04 01:29] LABS: BASO % 0.7 % (0-2.0); EOS % 2.2 % (0-4.5); HEMATOCRIT 25.7 % (32.4-45.2); HEMOGLOBIN 8.4 GM/dL (10.7-15.3); LYMPH % 29.1 % (8-40); MCH 30.8 pg (25.7-33.7); MCHC 32.7 g/dl (32.0-36.0); MEAN CELL VOLUME 94.2 fl (80-96); MEAN PLT VOLUME 8.5 fl (7.5-11.1); MONO % 13.1 % (3.8-10.2); NEUT % 54.9 % (42.8-82.8); PLATELET COUNT 75 10^3/uL (134-434); RBC 2.73 M/mm3 (3.60-5.2); RDW 24.7 % (11.6-15.6); WHITE BLOOD COUNT 5.2 K/mm3 (4.0-10.0)
[2024-01-04 01:46] LABS: CHLORIDE 110 mmol/L (98-107); POTASSIUM 3.7 mmol/L (3.5-5.1); SODIUM 145 mmol/L (136-145)
[2024-01-04 01:48] LABS: ANION GAP 8 mmol/L (4-13); CO2 26 mmol/L (21-32); MAGNESIUM 1.5 mg/dL (1.8-2.4)
[2024-01-04 01:49] LABS: CALCIUM 7.7 mg/dL (8.5-10.1); GLUCOSE,RANDOM 109 mg/dL (74-106)
[2024-01-04 01:50] LABS: ALBUMIN 2.4 g/dl (3.4-5.0)
[2024-01-04 01:51] LABS: CREATININE 0.7 mg/dL (0.55-1.3); SGOT/AST 282 U/L (15-37); SGPT/ALT 85 U/L (13-61)
[2024-01-04 01:52] LABS: BILIRUBIN,DIRECT 1.7 mg/dL (0.0-0.2)
[2024-01-04 01:53] LABS: CHOLESTEROL 171 mg/dL (50-200); TOT PROT 7.2 g/dl (6.4-8.2)
[2024-01-04 01:54] LABS: BILIRUBIN,TOTAL 2.4 mg/dL (0.2-1); LDL CHOLESTEROL (ONLY SJRH) 89 mg/dL (5-100)
[2024-01-04 01:56] LABS: HDL CHOLESTEROL 41 mg/dL (40-60)
[2024-01-04 02:01] LABS: ALK PHOS 297 U/L (45-117)
[2024-01-04] MEDS ORDERED: morphine SULFATE 4 MG/ML VIAL ONE (02:06)
[2024-01-04] MEDS: morphine SULFATE 4 MG/ML VIAL IVPUSH ONE (02:16)
[2024-01-04] MEDS ORDERED: MAGNESIUM SULFATE IN WATER 2 GM/50 ML IVPB IVPB ONE (02:20)
[2024-01-04 02:39] LABS: HIV INTERPRETATION NEGATIVE (NEGATIVE)
[2024-01-04] MEDS: MAGNESIUM SULF 50% (8.12 MEQ/2 ML-1 GM VIAL) IVPB ONE (02:45)
[2024-01-04] MEDS ORDERED: MORPHINE SULFATE 2 MG/ML SYRINGE IVPUSH PRN (09:03)
[2024-01-04] MEDS ORDERED: LORazepam 2 MG/ML SDV VIAL IVPUSH PRN (11:00)
[2024-01-04 11:36] LABS: INR 1.57 (0.83-1.09); PROTHROMBIN TIME (PATIENT) 17.8 SEC (9.7-13.0)
[2024-01-04 11:39] LABS: ACTIVATED PTT 33.6 SECONDS (25.2-36.5)
[2024-01-04] MEDS ORDERED: LORazepam 1 MG TABLET PO PRN (12:26)
[2024-01-04] MEDS: THIAMINE 100 MG TABLET PO SCH (13:19)
[2024-01-04] MEDS: RIFAXIMIN 550 MG TABLET PO SCH (13:19)
[2024-01-04] MEDS: SPIRONOLACTONE 25 MG TABLET PO SCH (13:20)
[2024-01-04] MEDS: LACTULOSE 20 GM/30 ML UDC (FOR ORAL USE ONLY) PO SCH (13:20)
[2024-01-04] MEDS: FOLIC ACID 1 MG TABLET (FP) PO SCH (13:20)
[2024-01-04] MEDS: LORazepam 1 MG TABLET PO SCH (13:21)
[2024-01-04] MEDS: FUROSEMIDE 40 MG/4 ML INJECTABLE VIAL IVPUSH SCH (13:24)
[2024-01-04] MEDS: PANTOPRAZOLE 40 MG TABLET PO SCH (13:24)
[2024-01-04] MEDS: FUROSEMIDE 20 MG TABLET (FP) PO SCH (13:24)
[2024-01-04 14:09] VITALS: RESP 18; BMI 31.2
[2024-01-04 18:16] VITALS: BP 126/81; PULSE 103; TEMP 97.3
[2024-01-05] MEDS ORDERED: FUROSEMIDE 40 MG/4 ML INJECTABLE VIAL IVPUSH SCH (10:00)
[2024-01-06] MEDS ORDERED: LORazepam 1 MG TABLET PO SCH (05:00)
[2024-01-07] MEDS ORDERED: LORazepam 0.5 MG TABLET PO PRN
[2024-01-07] MEDS ORDERED: LORazepam 0.5 MG TABLET PO SCH (05:00)
[2024-01-08] MEDS ORDERED: LORazepam 0.5 MG TABLET PO ONE (05:00)
== END 2024-01-04 19:15 | disposition left against medical advice (07) ==
LOC: JER 22:37 → UNDOADMOB 01-04 08:44 → OBSVTOIN 01-04 08:44 → JERBED 01-04 08:44 → INTOOBSV 01-04 08:44 → JERBED 01-04 09:23 → J7W 01-04 09:23 → JERBED 01-04 10:26
PROVIDERS: ADMIT Internal Medicine; ATTEND Internal Medicine
PROC: 3E033GC Introduction of Other Therapeutic Substance into Peripheral Vein, Percutaneous Approach (ICD-10-PCS; principal; 2024-01-04)
PROC: 3E0337Z Introduction of Electrolytic and Water Balance Substance into Peripheral Vein, Percutaneous Approach (ICD-10-PCS; 2024-01-04)
PROC: 3E033NZ Introduction of Analgesics, Hypnotics, Sedatives into Peripheral Vein, Percutaneous Approach (ICD-10-PCS; 2024-01-04)
DX: K70.30 Alcoholic cirrhosis of liver without ascites (principal); F10.99 Alcohol use, unspecified with unspecified alcohol-induced disorder; S27.899A Unspecified injury of other specified intrathoracic organs, initial encounter; X58.XXXA Exposure to other specified factors, initial encounter; K76.82 Hepatic encephalopathy; I85.00 Esophageal varices without bleeding; Z86.16 Personal history of COVID-19; K27.9 Peptic ulcer, site unspecified, unspecified as acute or chronic, without hemorrhage or perforation; D64.9 Anemia, unspecified; J90 Pleural effusion, not elsewhere classified; Z29.89 Encounter for other specified prophylactic measures
CPT/HCPCS: 0241U-QW; 36415; 71045-TC-FY; 80053; 80061; 80307; 82140; 82248; 83690; 83735; 84484; 84703; 85025; 85610; 85730; 86803; 87389; 93005; 93010; 96365; 96375; 99285-25; G0378

== ENCOUNTER 2024-01-06 14:25 | Emergency (ER) | payer OTHER ==
[2024-01-06 15:08] VITALS: BP 126/78; PULSE 100; RESP 19; TEMP 98.3; BMI 27.1
[2024-01-06 15:47] LABS: HEMATOCRIT 27.4 % (32.4-45.2); HEMOGLOBIN 8.9 GM/dL (10.7-15.3); MCH 30.1 pg (25.7-33.7); MCHC 32.5 g/dl (32.0-36.0); MEAN CELL VOLUME 92.7 fl (80-96); MEAN PLT VOLUME 8.2 fl (7.5-11.1); PLATELET COUNT 54 10^3/uL (134-434); RBC 2.96 M/mm3 (3.60-5.2); RDW 25.3 % (11.6-15.6); WHITE BLOOD COUNT 3.8 K/mm3 (4.0-10.0)
[2024-01-06 16:12] LABS: POTASSIUM 3.4 mmol/L (3.5-5.1)
[2024-01-06 16:16] LABS: ALBUMIN 2.4 g/dl (3.4-5.0); BLOOD UREA NITROGEN 7.2 mg/dL (7-18); CALCIUM 7.8 mg/dL (8.5-10.1)
[2024-01-06 16:18] LABS: CREATININE 0.5 mg/dL (0.55-1.3)
[2024-01-06 16:20] LABS: BILIRUBIN,TOTAL 3.2 mg/dL (0.2-1); TOT PROT 7.4 g/dl (6.4-8.2)
== END 2024-01-06 17:07 | disposition left against medical advice (07) ==
LOC: JER 14:25
DX: J90 Pleural effusion, not elsewhere classified (principal); R09.02 Hypoxemia; R06.02 Shortness of breath; R11.10 Vomiting, unspecified; U07.1 COVID-19; F10.90 Alcohol use, unspecified, uncomplicated; Y90.8 Blood alcohol level of 240 mg/100 ml or more
CPT/HCPCS: 0241U-QW; 36415; 71045-TC-FY; 80053; 80307; 83690; 85027; 99284-25

== ENCOUNTER 2024-01-07 23:09 | Inpatient (IN) | payer OTHER ==
[2024-01-08 00:34] LABS: BASO % 0.2 % (0-2.0); HEMATOCRIT 25.3 % (32.4-45.2); HEMOGLOBIN 8.3 GM/dL (10.7-15.3); LYMPH % 12.9 % (8-40); MCHC 32.9 g/dl (32.0-36.0); MEAN CELL VOLUME 94.2 fl (80-96); MONO % 9.1 % (3.8-10.2); NEUT % 77.8 % (42.8-82.8); PLATELET COUNT 103 10^3/uL (134-434); RBC 2.69 M/mm3 (3.60-5.2); RDW 24.8 % (11.6-15.6); WHITE BLOOD COUNT 4.7 K/mm3 (4.0-10.0)
[2024-01-08 00:42] LABS: INR 1.74 (0.83-1.09); PROTHROMBIN TIME (PATIENT) 19.3 SEC (9.7-13.0)
[2024-01-08 00:44] LABS: ACTIVATED PTT 34.4 SECONDS (25.2-36.5)
[2024-01-08 00:46] LABS: POTASSIUM 3.9 mmol/L (3.5-5.1)
[2024-01-08 00:47] LABS: ALBUMIN 2.4 g/dl (3.4-5.0); CALCIUM 8.1 mg/dL (8.5-10.1)
[2024-01-08 00:48] LABS: BLOOD UREA NITROGEN 15.7 mg/dL (7-18); MAGNESIUM 1.3 mg/dL (1.8-2.4)
[2024-01-08 00:50] LABS: CREATININE 1.1 mg/dL (0.55-1.3)
[2024-01-08 00:52] LABS: BILIRUBIN,TOTAL 3.2 mg/dL (0.2-1); TOT PROT 7.3 g/dl (6.4-8.2)
[2024-01-08 00:55] LABS: N-TERMINAL BNP 62.9 pg/ml (5-125)
[2024-01-08] MEDS: THIAMINE HCL 200 MG/2 ML VIAL IVPB ONE (01:09)
[2024-01-08] MEDS: FOLIC ACID 1 MG TABLET (FP) PO ONE (01:09)
[2024-01-08] MEDS: ACETAMINOPHEN 500 MG TABLET (FP) PO ONE (01:09)
[2024-01-08] MEDS: MELATONIN 5 MG TABLETS PO ONE (01:09)
[2024-01-08] MEDS ORDERED: FOLIC ACID 1 MG TABLET (FP) ONE (01:11)
[2024-01-08] MEDS ORDERED: MELATONIN 5 MG TABLETS ONE (01:11)
[2024-01-08] MEDS ORDERED: ACETAMINOPHEN 325 MG TABLET (FP) ONE (01:11)
[2024-01-08] MEDS ORDERED: THIAMINE HCL 200 MG/2 ML VIAL ONE (01:11)
[2024-01-08] MEDS: MAGNESIUM SULF 50% (8.12 MEQ/2 ML-1 GM VIAL) IVPB ONE (01:47)
[2024-01-08] MEDS ORDERED: MAGNESIUM SULFATE IN WATER 2 GM/50 ML IVPB IVPB ONE (01:48)
[2024-01-08] MEDS ORDERED: DOCUSATE SODIUM 100 MG CAPSULE (FP) PO PRN (03:16)
[2024-01-08] MEDS ORDERED: ONDANSETRON 4 MG/2 ML VIAL IVPUSH PRN (03:24)
[2024-01-08] MEDS ORDERED: LORazepam 1 MG TABLET PO PRN (03:29)
[2024-01-08] MEDS: LACTULOSE 20 GM/30 ML UDC (FOR ORAL USE ONLY) PO SCH (06:12)
[2024-01-08] MEDS: INSULIN ASPART SLIDING SCALE (NOVOLOG) 1 VIAL SQ SCH (06:12)
[2024-01-08] MEDS ORDERED: LACTULOSE 20 GM/30 ML UDC (FOR ORAL USE ONLY) ONE (06:13)
[2024-01-08] MEDS: FUROSEMIDE 20 MG TABLET (FP) PO SCH (09:24)
[2024-01-08] MEDS: FOLIC ACID 1 MG TABLET (FP) PO SCH (09:24)
[2024-01-08] MEDS: SPIRONOLACTONE 25 MG TABLET PO SCH (09:25)
[2024-01-08] MEDS: RIFAXIMIN 550 MG TABLET PO SCH (09:25)
[2024-01-08] MEDS: PANTOPRAZOLE 40 MG TABLET PO SCH (09:25)
[2024-01-08] MEDS: THIAMINE 100 MG TABLET PO SCH (09:25)
[2024-01-08] MEDS: CHOLECALCIFEROL (VIT D3) 400 UNIT (10 MCG) TABLET PO SCH (09:25)
[2024-01-08] MEDS: CARVEDILOL 6.25 MG TABLET (FP) PO SCH (09:25)
[2024-01-08 11:20] VITALS: BP 111/63; PULSE 109; RESP 20; TEMP 98.2; BMI 29.5
== END 2024-01-08 11:53 | disposition left against medical advice (07) | DRG 280 ==
LOC: JER 23:09 → JERBED 01-08 00:03 → J8W 01-08 08:05
PROVIDERS: ADMIT Internal Medicine; ATTEND Nurse Practitioner Family
DX: K70.31 Alcoholic cirrhosis of liver with ascites (principal); K70.11 Alcoholic hepatitis with ascites; U07.1 COVID-19; D61.818 Other pancytopenia; J81.1 Chronic pulmonary edema; J90 Pleural effusion, not elsewhere classified; I85.10 Secondary esophageal varices without bleeding; D69.6 Thrombocytopenia, unspecified; E87.6 Hypokalemia; K76.82 Hepatic encephalopathy; D68.9 Coagulation defect, unspecified; R06.09 Other forms of dyspnea; R09.02 Hypoxemia; Z87.11 Personal history of peptic ulcer disease
CPT/HCPCS: 0241U-QW; 36415; 71045-TC-FY; 80053; 80307; 82140; 82248; 82962; 83735; 83880; 84100; 84484; 85025; 85610; 85730; 93005; 93010; 99285-25; G0378; J0131; J0248; J1100

== ENCOUNTER 2024-01-10 19:57 | Emergency (ER) | payer OTHER ==
[2024-01-10 20:12] VITALS: TEMP 98.2; BMI 29.2
[2024-01-10 22:38] VITALS: BP 115/71; PULSE 82; RESP 16
== END 2024-01-10 22:55 | disposition home or self-care (01) ==
LOC: JER 19:57
DX: R11.2 Nausea with vomiting, unspecified (principal); R51.9 Headache, unspecified; R14.0 Abdominal distension (gaseous)
CPT/HCPCS: 99283-25

== ENCOUNTER 2024-01-11 22:23 | Emergency (ER) | payer OTHER ==
[2024-01-11 22:41] VITALS: BP 108/55; PULSE 72; RESP 20; TEMP 97.5; BMI 29.2
== END 2024-01-12 00:18 | disposition home or self-care (01) ==
LOC: JER 22:23
DX: F10.920 Alcohol use, unspecified with intoxication, uncomplicated (principal); R11.2 Nausea with vomiting, unspecified; R51.9 Headache, unspecified
CPT/HCPCS: 99283-25

== ENCOUNTER 2024-01-12 15:15 | Emergency (ER) | payer OTHER ==
[2024-01-12 15:47] VITALS: BP 113/69; PULSE 95; RESP 18; TEMP 98; BMI 29.2
[2024-01-12 16:26] LABS: VENOUS BASE EXCESS 3.7 mmol/L (-2-2); VENOUS O2 SATURATION 76.1 % (70-80); VENOUS PCO2 40.9 mmHg (38-52); VENOUS PH 7.452 (7.310-7.410)
[2024-01-12 16:33] LABS: BASO % 0.4 % (0-2.0); EOS % 1.9 % (0-4.5); HEMATOCRIT 26.4 % (32.4-45.2); HEMOGLOBIN 8.5 GM/dL (10.7-15.3); MCH 29.8 pg (25.7-33.7); MCHC 32.4 g/dl (32.0-36.0); MEAN CELL VOLUME 92.2 fl (80-96); MEAN PLT VOLUME 9.5 fl (7.5-11.1); MONO % 8.6 % (3.8-10.2); NEUT % 77.1 % (42.8-82.8); PLATELET COUNT 88 10^3/uL (134-434); RBC 2.87 M/mm3 (3.60-5.2); RDW 24.4 % (11.6-15.6); WHITE BLOOD COUNT 9.8 K/mm3 (4.0-10.0)
[2024-01-12 16:49] LABS: POTASSIUM 3.1 mmol/L (3.5-5.1)
[2024-01-12 16:52] LABS: ALBUMIN 2.6 g/dl (3.4-5.0); BLOOD UREA NITROGEN 19.8 mg/dL (7-18)
[2024-01-12 16:55] LABS: CREATININE 0.8 mg/dL (0.55-1.3)
[2024-01-12 16:57] LABS: BILIRUBIN,TOTAL 3.9 mg/dL (0.2-1); TOT PROT 7.4 g/dl (6.4-8.2)
[2024-01-12 17:02] LABS: ANISOCYTOSIS 3+; MACROCYTOSIS 2+; TARGET CELLS 1+
[2024-01-12 17:18] LABS: INR 1.52 (0.83-1.09); PROTHROMBIN TIME (PATIENT) 17.3 SEC (9.7-13.0)
[2024-01-12 17:21] LABS: ACTIVATED PTT 32.8 SECONDS (25.2-36.5)
[2024-01-12] MEDS ORDERED: KCL 10 MEQ IVPB 10 MEQ/100 ML INFUS.BAG IVPB SCH (17:30)
[2024-01-12 17:57] LABS: EPI CELLS >36 /uL (0-25.1); HYALINE CASTS 1 /uL (0-3.1); URINE APPEARANCE CLEAR; URINE BACTERIA 55 /uL (0-1359); URINE BARBITURATES NEGATIVE (NEGATIVE); URINE BILIRUBIN NEGATIVE (NEGATIVE); URINE COLOR DK YELLOW; URINE GLUCOSE (UA) NEGATIVE (NEGATIVE); URINE KETONE NEGATIVE (NEGATIVE); URINE LEUK ESTERASE TRACE (NEGATIVE); URINE NITRITE NEGATIVE (NEGATIVE); URINE PROTEIN NEGATIVE (NEGATIVE); URINE RBC 19 /uL (0-23.9); URINE WBC 20 /uL (0-25.8)
[2024-01-12 17:58] LABS: COCAINE, UR NEGATIVE (NEGATIVE); METHADONE, UR NEGATIVE (NEGATIVE); OPIATES, URI NEGATIVE (NEGATIVE); PHENCYCLIDINE,URINE NEGATIVE (NEGATIVE); URINE AMPHETAMINES NEGATIVE (NEGATIVE); URINE BENZODIAZEPINES POSITIVE (NEGATIVE)
[2024-01-12] MEDS ORDERED: POTASSIUM CHLORIDE ORAL LIQUID 20 MEQ/15 ML ONE (17:59)
[2024-01-12] MEDS: POTASSIUM CHLORIDE ORAL LIQUID 20 MEQ/15 ML PO ONE (18:02)
[2024-01-12 18:10] LABS: YEAST FEW (NEGATIVE)
[2024-01-12 20:16] LABS: MAGNESIUM 1.9 mg/dL (1.8-2.4)
[2024-01-12 22:53] LABS: HIV INTERPRETATION NEGATIVE (NEGATIVE)
== END 2024-01-12 20:36 | disposition left against medical advice (07) ==
LOC: JER 15:15
DX: K70.31 Alcoholic cirrhosis of liver with ascites (principal); K92.0 Hematemesis; R06.02 Shortness of breath; R51.9 Headache, unspecified; R53.1 Weakness; Z20.822 Contact with and (suspected) exposure to COVID-19
CPT/HCPCS: 0241U-QW; 36415; 71045-TC-FY; 80053; 80307; 81003; 82803; 83690; 83735; 83880; 84484; 85025; 85610; 85730; 86803; 86850; 86900; 86901; 87389; 93005; 93010; 99285-25

== ENCOUNTER 2024-01-17 17:50 | Inpatient (IN) | payer OTHER ==
[2024-01-17 19:53] LABS: BASO % 1.4 % (0-2.0); EOS % 2.6 % (0-4.5); HEMATOCRIT 29.6 % (32.4-45.2); HEMOGLOBIN 9.5 GM/dL (10.7-15.3); LYMPH % 26.2 % (8-40); MCH 29.9 pg (25.7-33.7); MEAN CELL VOLUME 93.6 fl (80-96); MEAN PLT VOLUME 9.1 fl (7.5-11.1); MONO % 10.4 % (3.8-10.2); NEUT % 59.4 % (42.8-82.8); PLATELET COUNT 85 10^3/uL (134-434); RBC 3.16 M/mm3 (3.60-5.2); WHITE BLOOD COUNT 5.1 K/mm3 (4.0-10.0)
[2024-01-17 20:01] LABS: ADD RBC MORPHOLOGY YES
[2024-01-17 20:07] LABS: INR 1.36 (0.83-1.09); PROTHROMBIN TIME (PATIENT) 15.2 SEC (9.7-13.0)
[2024-01-17 20:12] LABS: POTASSIUM 4.2 mmol/L (3.5-5.1)
[2024-01-17 20:13] LABS: ALBUMIN 2.2 g/dl (3.4-5.0); BLOOD UREA NITROGEN 8.4 mg/dL (7-18); CALCIUM 7.7 mg/dL (8.5-10.1); MAGNESIUM 1.5 mg/dL (1.8-2.4)
[2024-01-17 20:16] LABS: CREATININE 0.5 mg/dL (0.55-1.3); PHOSPHOROUS 3.3 mg/dL (2.5-4.9)
[2024-01-17 20:19] LABS: BILIRUBIN,TOTAL 2.6 mg/dL (0.2-1); TOT PROT 7.5 g/dl (6.4-8.2)
[2024-01-17 20:21] LABS: N-TERMINAL BNP 80.4 pg/ml (5-125)
[2024-01-17] MEDS ORDERED: MAGNESIUM 1GM/D5W - 1 GM/100 ML IVPB IVPB ONE (20:44)
[2024-01-17 20:58] LABS: ANISOCYTOSIS 2+; MACROCYTOSIS 0; TARGET CELLS 1+
[2024-01-17] MEDS: MAGNESIUM 1GM/D5W - 1 GM/100 ML IVPB IVPB ONE (20:58)
[2024-01-17 22:04] LABS: EPI CELLS 9 /uL (0-25.1); HYALINE CASTS 1 /uL (0-3.1); URINE APPEARANCE CLEAR; URINE BACTERIA 65 /uL (0-1359); URINE BILIRUBIN NEGATIVE (NEGATIVE); URINE COLOR YELLOW; URINE GLUCOSE (UA) NEGATIVE (NEGATIVE); URINE KETONE NEGATIVE (NEGATIVE); URINE LEUK ESTERASE NEGATIVE (NEGATIVE); URINE NITRITE NEGATIVE (NEGATIVE); URINE PROTEIN 1+ (NEGATIVE); URINE RBC 63 /uL (0-23.9); URINE WBC 6 /uL (0-25.8)
[2024-01-17 23:53] VITALS: RESP 18
[2024-01-18] MEDS ORDERED: LORazepam 1 MG TABLET PO PRN ×2 (01:58→02:59)
[2024-01-18] MEDS: FOLIC ACID INJECTION - 1 MG, THIAMINE HCL 100 MG, MULTIVIT INJECTION ADULT 10 ML in SOD... IVPB ONE (04:09)
[2024-01-18] MEDS: FUROSEMIDE 40 MG/4 ML INJECTABLE VIAL IVPUSH ONE (05:09)
[2024-01-18] MEDS: LORazepam 2 MG TABLET PO SCH (05:09)
[2024-01-18 05:55] LABS: EOS % 2.9 % (0-4.5); HEMATOCRIT 26.9 % (32.4-45.2); HEMOGLOBIN 8.7 GM/dL (10.7-15.3); LYMPH % 23.1 % (8-40); MCH 29.8 pg (25.7-33.7); MCHC 32.3 g/dl (32.0-36.0); MEAN CELL VOLUME 92.4 fl (80-96); MEAN PLT VOLUME 8.3 fl (7.5-11.1); MONO % 13.5 % (3.8-10.2); NEUT % 59.5 % (42.8-82.8); PLATELET COUNT 47 10^3/uL (134-434); RBC 2.91 M/mm3 (3.60-5.2); RDW 22.7 % (11.6-15.6); WHITE BLOOD COUNT 4.6 K/mm3 (4.0-10.0)
[2024-01-18 06:18] LABS: POTASSIUM 3.5 mmol/L (3.5-5.1)
[2024-01-18 06:20] LABS: ALBUMIN 2.2 g/dl (3.4-5.0); BLOOD UREA NITROGEN 7.4 mg/dL (7-18); CALCIUM 7.6 mg/dL (8.5-10.1); MAGNESIUM 1.5 mg/dL (1.8-2.4)
[2024-01-18 06:24] LABS: CREATININE 0.5 mg/dL (0.55-1.3); PHOSPHOROUS 2.9 mg/dL (2.5-4.9)
[2024-01-18 06:26] LABS: BILIRUBIN,TOTAL 2.6 mg/dL (0.2-1); TOT PROT 7.2 g/dl (6.4-8.2)
[2024-01-18] MEDS: THIAMINE 100 MG TABLET PO SCH (09:47)
[2024-01-18] MEDS: PANTOPRAZOLE SODIUM 40 MG VIAL IVPUSH SCH (09:47)
[2024-01-18] MEDS: RIFAXIMIN 550 MG TABLET PO SCH (09:47)
[2024-01-18] MEDS ORDERED: FOLIC ACID 5 MG/1 ML SQ SCH (10:00)
[2024-01-18 11:16] VITALS: BP 130/73; PULSE 91; TEMP 97.9; BMI 28.7
[2024-01-18] MEDS: ACETAMINOPHEN 325 MG TABLET (FP) PO PRN (11:24)
[2024-01-18 12:34] LABS: HEMATOCRIT 26.7 % (32.4-45.2); HEMOGLOBIN 8.8 GM/dL (10.7-15.3); MCH 30.3 pg (25.7-33.7); MCHC 32.9 g/dl (32.0-36.0); MEAN PLT VOLUME 8.4 fl (7.5-11.1); PLATELET COUNT 47 10^3/uL (134-434); RDW 22.7 % (11.6-15.6); WHITE BLOOD COUNT 4.2 K/mm3 (4.0-10.0)
[2024-01-18] MEDS: LORazepam 1 MG TABLET PO SCH (12:44)
[2024-01-18] MEDS ORDERED: LACTULOSE 20 GM/30 ML UDC (FOR ORAL USE ONLY) PO SCH ×2 (14:00→22:00)
[2024-01-18] MEDS ORDERED: CARVEDILOL 3.125 MG TABLET (FP) PO SCH (22:00)
[2024-01-19] MEDS ORDERED: LORazepam 1 MG TABLET PO SCH (05:00)
[2024-01-19] MEDS ORDERED: SPIRONOLACTONE 25 MG TABLET PO SCH (10:00)
[2024-01-19] MEDS ORDERED: FUROSEMIDE 20 MG TABLET (FP) PO SCH (10:00)
[2024-01-20] MEDS ORDERED: LORazepam 0.5 MG TABLET PO PRN
[2024-01-20] MEDS ORDERED: LORazepam 0.5 MG TABLET PO SCH (05:00)
[2024-01-21] MEDS ORDERED: LORazepam 0.5 MG TABLET PO ONE (05:00)
== END 2024-01-18 14:26 | disposition left against medical advice (07) | DRG 143 ==
LOC: JER 17:50 → JERBED 22:23 → J5S 01-18 08:05
PROVIDERS: ADMIT Internal Medicine; ATTEND Internal Medicine
DX: J94.8 Other specified pleural conditions (principal); C80.0 Disseminated malignant neoplasm, unspecified; D69.6 Thrombocytopenia, unspecified; E83.42 Hypomagnesemia; K81.2 Acute cholecystitis with chronic cholecystitis; C22.9 Malignant neoplasm of liver, not specified as primary or secondary; D64.9 Anemia, unspecified; I10 Essential (primary) hypertension; K70.30 Alcoholic cirrhosis of liver without ascites; R73.03 Prediabetes; J90 Pleural effusion, not elsewhere classified
CPT/HCPCS: 36415; 71045-TC-FY; 71260-TC; 74177-TC; 80053; 81003; 82248; 83690; 83735; 83880; 84100; 84484; 84703; 85025; 85027; 85610; 85730; 87086; 87186; 87635; 93005; 93010; 99285-25; Q9967

== ENCOUNTER 2024-01-19 23:30 | Inpatient (IN) | payer OTHER ==
[2024-01-20 00:51] LABS: BASO % 0.8 % (0-2.0); EOS % 2.4 % (0-4.5); HEMATOCRIT 26.2 % (32.4-45.2); HEMOGLOBIN 8.7 GM/dL (10.7-15.3); LYMPH % 20.8 % (8-40); MCH 29.9 pg (25.7-33.7); MEAN CELL VOLUME 90.7 fl (80-96); MEAN PLT VOLUME 8.7 fl (7.5-11.1); MONO % 9.2 % (3.8-10.2); NEUT % 66.8 % (42.8-82.8); PLATELET COUNT 52 10^3/uL (134-434); RBC 2.89 M/mm3 (3.60-5.2); RDW 23.3 % (11.6-15.6); WHITE BLOOD COUNT 5.4 K/mm3 (4.0-10.0)
[2024-01-20 00:58] LABS: INR 1.54 (0.83-1.09); PROTHROMBIN TIME (PATIENT) 17.2 SEC (9.7-13.0)
[2024-01-20 01:26] LABS: POTASSIUM 3.2 mmol/L (3.5-5.1)
[2024-01-20 01:28] LABS: CALCIUM 7.3 mg/dL (8.5-10.1)
[2024-01-20 01:29] LABS: ALBUMIN 2.2 g/dl (3.4-5.0); BLOOD UREA NITROGEN 10.6 mg/dL (7-18)
[2024-01-20 01:32] LABS: CREATININE 0.7 mg/dL (0.55-1.3)
[2024-01-20 01:33] LABS: BILIRUBIN,TOTAL 2.7 mg/dL (0.2-1); TOT PROT 6.9 g/dl (6.4-8.2)
[2024-01-20] MEDS ORDERED: POTASSIUM CHLORIDE ORAL LIQUID 20 MEQ/15 ML ONE (02:09)
[2024-01-20 02:12] LABS: HIV INTERPRETATION NEGATIVE (NEGATIVE)
[2024-01-20] MEDS: POTASSIUM CHLORIDE ORAL LIQUID 20 MEQ/15 ML PO ONE (02:14)
[2024-01-20] MEDS ORDERED: IBUPROFEN 600 MG TABLET (FP) PO ONE (06:04)
[2024-01-20] MEDS: IBUPROFEN 600 MG TABLET (FP) PO ONE (06:16)
[2024-01-20] MEDS ORDERED: LORazepam 1 MG TABLET PO PRN (08:19)
[2024-01-20] MEDS ORDERED: ONDANSETRON *ODT* 4 MG TABLET SL PRN (08:19)
[2024-01-20] MEDS: CHOLECALCIFEROL (VIT D3) 400 UNIT (10 MCG) TABLET PO SCH (09:58)
[2024-01-20] MEDS: FOLIC ACID 1 MG TABLET (FP) PO SCH (09:58)
[2024-01-20] MEDS: FUROSEMIDE 20 MG TABLET (FP) PO SCH (09:58)
[2024-01-20] MEDS: RIFAXIMIN 550 MG TABLET PO SCH (09:58)
[2024-01-20] MEDS: THIAMINE 100 MG TABLET PO SCH (09:58)
[2024-01-20] MEDS: PANTOPRAZOLE 40 MG TABLET PO SCH (09:58)
[2024-01-20 10:40] VITALS: BP 109/63; PULSE 88; RESP 18; TEMP 98.2; BMI 29.1
== END 2024-01-20 11:25 | disposition left against medical advice (07) | DRG 143 ==
LOC: JER 23:30 → JERBED 01-20 01:38 → J7W 01-20 08:51
PROVIDERS: ADMIT Internal Medicine; ATTEND Internal Medicine
DX: J94.8 Other specified pleural conditions (principal); D61.818 Other pancytopenia; E88.09 Other disorders of plasma-protein metabolism, not elsewhere classified; K70.31 Alcoholic cirrhosis of liver with ascites; F10.10 Alcohol abuse, uncomplicated
CPT/HCPCS: 36415; 71045-TC-FY; 80053; 84703; 85025; 85610; 85730; 86803; 86850; 86900; 86901; 87389; 93005; 93010; 99285-25

== ENCOUNTER 2024-01-20 23:06 | Observation (INO) | payer OTHER ==
[2024-01-20 23:18] VITALS: BMI 29.2
[2024-01-21 00:38] LABS: BASO % 1.1 % (0-2.0); EOS % 2.2 % (0-4.5); HEMATOCRIT 26.7 % (32.4-45.2); HEMOGLOBIN 8.8 GM/dL (10.7-15.3); LYMPH % 22.8 % (8-40); MCHC 33.1 g/dl (32.0-36.0); MEAN CELL VOLUME 90.4 fl (80-96); MEAN PLT VOLUME 8.9 fl (7.5-11.1); MONO % 8.8 % (3.8-10.2); NEUT % 65.1 % (42.8-82.8); PLATELET COUNT 52 10^3/uL (134-434); RBC 2.95 M/mm3 (3.60-5.2); WHITE BLOOD COUNT 5.8 K/mm3 (4.0-10.0)
[2024-01-21 00:45] LABS: VENOUS BASE EXCESS -0.9 mmol/L (-2-2); VENOUS PCO2 37.4 mmHg (38-52); VENOUS PH 7.415 (7.310-7.410)
[2024-01-21 01:23] LABS: POTASSIUM 3.3 mmol/L (3.5-5.1)
[2024-01-21 01:25] LABS: ALBUMIN 2.3 g/dl (3.4-5.0); CALCIUM 7.8 mg/dL (8.5-10.1)
[2024-01-21 01:26] LABS: BLOOD UREA NITROGEN 11.8 mg/dL (7-18)
[2024-01-21 01:29] LABS: CREATININE 0.7 mg/dL (0.55-1.3)
[2024-01-21 01:30] LABS: BILIRUBIN,TOTAL 2.6 mg/dL (0.2-1); TOT PROT 7.3 g/dl (6.4-8.2)
[2024-01-21] MEDS ORDERED: DOCUSATE SODIUM 100 MG CAPSULE (FP) PO PRN (02:20)
[2024-01-21] MEDS ORDERED: ONDANSETRON *ODT* 4 MG TABLET SL PRN (02:28)
[2024-01-21] MEDS ORDERED: LORazepam 1 MG TABLET PO PRN (02:30)
[2024-01-21 05:40] LABS: MAGNESIUM 1.3 mg/dL (1.8-2.4)
[2024-01-21] MEDS ORDERED: MAGNESIUM SULFATE IN WATER 2 GM/50 ML IVPB IVPB ONE (06:06)
[2024-01-21] MEDS ORDERED: POTASSIUM CHLORIDE ORAL LIQUID 20 MEQ/15 ML ONE (06:06)
[2024-01-21 06:18] VITALS: TEMP 97.6
[2024-01-21] MEDS: POTASSIUM CHLORIDE ORAL LIQUID 20 MEQ/15 ML PO ONE (06:18)
[2024-01-21] MEDS: MAGNESIUM SULFATE IN WATER 2 GM/50 ML IVPB IVPB ONE (06:18)
[2024-01-21 08:34] VITALS: BP 113/67; PULSE 89; RESP 20
[2024-01-21] MEDS ORDERED: THIAMINE 100 MG TABLET ONE (09:22)
[2024-01-21] MEDS ORDERED: PANTOPRAZOLE 40 MG TABLET PO ONE (09:22)
[2024-01-21] MEDS ORDERED: FOLIC ACID 1 MG TABLET (FP) ONE (09:22)
[2024-01-21] MEDS ORDERED: FUROSEMIDE 20 MG TABLET (FP) ONE (09:23)
[2024-01-21] MEDS ORDERED: MULTIVITAMINS (DAILY MVI) TABLET (FP) ONE (09:23)
[2024-01-21] MEDS ORDERED: PANTOPRAZOLE 40 MG TABLET PO SCH (10:00)
[2024-01-21] MEDS ORDERED: MULTIVITAMINS (DAILY MVI) TABLET (FP) PO SCH (10:00)
[2024-01-21] MEDS ORDERED: FUROSEMIDE 20 MG TABLET (FP) PO SCH (10:00)
[2024-01-21] MEDS ORDERED: FOLIC ACID 1 MG TABLET (FP) PO SCH (10:00)
[2024-01-21] MEDS ORDERED: RIFAXIMIN 550 MG TABLET PO SCH (10:00)
[2024-01-21] MEDS ORDERED: CHOLECALCIFEROL (VIT D3) 400 UNIT (10 MCG) TABLET PO SCH (10:00)
[2024-01-21] MEDS ORDERED: THIAMINE 100 MG TABLET PO SCH (10:00)
[2024-01-21 10:23] LABS: ANISOCYTOSIS 2+; MACROCYTOSIS 0
== END 2024-01-21 09:54 | disposition left against medical advice (07) ==
LOC: JER 23:06 → INTOOBSV 01-21 01:46 → JERBED 01-21 01:46
PROVIDERS: ADMIT Internal Medicine; ATTEND Nurse Practitioner Family
PROC: 3E033GC Introduction of Other Therapeutic Substance into Peripheral Vein, Percutaneous Approach (ICD-10-PCS; principal; 2024-01-21)
DX: F10.920 Alcohol use, unspecified with intoxication, uncomplicated (principal); J94.8 Other specified pleural conditions; D64.9 Anemia, unspecified; D69.6 Thrombocytopenia, unspecified; I85.00 Esophageal varices without bleeding; K74.69 Other cirrhosis of liver; R73.03 Prediabetes
CPT/HCPCS: 0241U-QW; 36415; 71045-TC-FY; 80053; 82803; 82962; 83735; 84484; 84703; 85025; 93005; 93010; 96365; 99285-25; G0378

== ENCOUNTER 2024-01-23 23:10 | Emergency (ER) | payer OTHER ==
[2024-01-23 23:25] VITALS: BP 123/69; PULSE 98; RESP 18; TEMP 99.1; BMI 29.2
== END 2024-01-24 09:48 | disposition home or self-care (01) ==
LOC: JER 23:10
DX: F10.920 Alcohol use, unspecified with intoxication, uncomplicated (principal); R53.1 Weakness; R11.2 Nausea with vomiting, unspecified; Y90.9 Presence of alcohol in blood, level not specified
CPT/HCPCS: 99283-25

== ENCOUNTER 2024-02-20 10:20 | Observation (INO) | payer OTHER ==
[2024-02-20] MEDS ORDERED: ONDANSETRON *ODT* 4 MG TABLET ONE (11:30)
[2024-02-20] MEDS: ONDANSETRON *ODT* 4 MG TABLET SL ONE (11:32)
[2024-02-20] MEDS: SODIUM CHLORIDE 0.9% 500 ML INFUS.BAG IV ONE (11:32)
[2024-02-20 12:08] LABS: BASO % 0.8 % (0-2.0); EOS % 3.1 % (0-4.5); HEMATOCRIT 29.4 % (32.4-45.2); HEMOGLOBIN 9.3 GM/dL (10.7-15.3); LYMPH % 21.4 % (8-40); MCH 29.2 pg (25.7-33.7); MCHC 31.5 g/dl (32.0-36.0); MEAN CELL VOLUME 92.7 fl (80-96); MEAN PLT VOLUME 8.7 fl (7.5-11.1); MONO % 7.4 % (3.8-10.2); NEUT % 67.3 % (42.8-82.8); PLATELET COUNT 55 10^3/uL (134-434); RBC 3.17 M/mm3 (3.60-5.2); RDW 22.8 % (11.6-15.6); WHITE BLOOD COUNT 5.2 K/mm3 (4.0-10.0)
[2024-02-20 12:26] VITALS: BMI 21.2
[2024-02-20 12:28] LABS: ANISOCYTOSIS 1+; MACROCYTOSIS 1+
[2024-02-20 12:29] LABS: POTASSIUM 3.6 mmol/L (3.5-5.1)
[2024-02-20 12:30] LABS: ALBUMIN 2.4 g/dl (3.4-5.0); CALCIUM 8.3 mg/dL (8.5-10.1)
[2024-02-20 12:32] LABS: MAGNESIUM 1.7 mg/dL (1.8-2.4)
[2024-02-20 12:36] LABS: BILIRUBIN,TOTAL 3.7 mg/dL (0.2-1); CREATININE 0.7 mg/dL (0.55-1.3)
[2024-02-20 12:37] LABS: TOT PROT 7.9 g/dl (6.4-8.2)
[2024-02-20 12:49] LABS: PH,URINE 6.5 (5.0-8.0); URINE APPEARANCE CLEAR; URINE BILIRUBIN NEGATIVE (NEGATIVE); URINE COLOR YELLOW; URINE GLUCOSE (UA) NEGATIVE (NEGATIVE); URINE KETONE TRACE (NEGATIVE); URINE LEUK ESTERASE NEGATIVE (NEGATIVE); URINE NITRITE NEGATIVE (NEGATIVE); URINE PROTEIN NEGATIVE (NEGATIVE)
[2024-02-20] MEDS ORDERED: MECLIZINE HCL 12.5 MG TABLET PO PRN (17:16)
[2024-02-20 17:22] LABS: INR 1.76 (0.83-1.09); PROTHROMBIN TIME (PATIENT) 19.9 SEC (9.7-13.0)
[2024-02-20] MEDS ORDERED: THIAMINE HCL 200 MG/2 ML VIAL ONE (21:07)
[2024-02-20] MEDS: THIAMINE HCL 200 MG/2 ML VIAL IVPB SCH (21:12)
[2024-02-20] MEDS: RIFAXIMIN 550 MG TABLET PO SCH (21:35)
[2024-02-20] MEDS: CHOLECALCIFEROL (VIT D3) 400 UNIT (10 MCG) TABLET PO SCH (21:35)
[2024-02-21] MEDS ORDERED: THIAMINE HCL 200 MG/2 ML VIAL ONE (05:04)
[2024-02-21] MEDS ORDERED: ONDANSETRON *ODT* 4 MG TABLET SL PRN (07:46)
[2024-02-21 08:19] LABS: BASO % 1.3 % (0-2.0); EOS % 2.8 % (0-4.5); HEMATOCRIT 24.9 % (32.4-45.2); HEMOGLOBIN 7.9 GM/dL (10.7-15.3); LYMPH % 21.6 % (8-40); MCH 29.5 pg (25.7-33.7); MCHC 31.8 g/dl (32.0-36.0); MEAN CELL VOLUME 92.9 fl (80-96); MEAN PLT VOLUME 8.5 fl (7.5-11.1); MONO % 7.2 % (3.8-10.2); NEUT % 67.1 % (42.8-82.8); PLATELET COUNT 42 10^3/uL (134-434); RBC 2.68 M/mm3 (3.60-5.2); RDW 23.5 % (11.6-15.6); WHITE BLOOD COUNT 4.1 K/mm3 (4.0-10.0)
[2024-02-21 08:26] LABS: POTASSIUM 3.6 mmol/L (3.5-5.1)
[2024-02-21 08:28] LABS: CALCIUM 7.6 mg/dL (8.5-10.1)
[2024-02-21 08:29] LABS: ALBUMIN 2.2 g/dl (3.4-5.0); MAGNESIUM 1.5 mg/dL (1.8-2.4)
[2024-02-21 08:33] LABS: PHOSPHOROUS 2.6 mg/dL (2.5-4.9)
[2024-02-21 08:34] LABS: BILIRUBIN,TOTAL 3.3 mg/dL (0.2-1); TOT PROT 6.9 g/dl (6.4-8.2)
[2024-02-21 08:35] LABS: CREATININE 0.6 mg/dL (0.55-1.3)
[2024-02-21] MEDS ORDERED: PANTOPRAZOLE 40 MG TABLET PO ONE (09:52)
[2024-02-21] MEDS ORDERED: ENOXAPARIN NA (PORCINE) 40 MG/0.4 ML DISP.SYRIN SQ ONE (09:53)
[2024-02-21] MEDS ORDERED: FOLIC ACID 1 MG TABLET (FP) ONE (09:53)
[2024-02-21] MEDS: FOLIC ACID 1 MG TABLET (FP) PO SCH (10:06)
[2024-02-21] MEDS: ENOXAPARIN NA (PORCINE) 40 MG/0.4 ML DISP.SYRIN SQ SCH (10:06)
[2024-02-21] MEDS: PANTOPRAZOLE 40 MG TABLET PO SCH (10:06)
[2024-02-21 10:11] VITALS: BP 106/56; PULSE 91; RESP 15; TEMP 98.7
[2024-02-24] MEDS ORDERED: THIAMINE HCL 200 MG/2 ML VIAL IVPB SCH (10:00)
== END 2024-02-21 10:04 | disposition left against medical advice (07) ==
LOC: JER 10:20 → JERBED 16:14
PROVIDERS: ADMIT Internal Medicine; ATTEND Nurse Practitioner
PROC: 3E023GC Introduction of Other Therapeutic Substance into Muscle, Percutaneous Approach (ICD-10-PCS; principal; 2024-02-20)
PROC: 3E033NZ Introduction of Analgesics, Hypnotics, Sedatives into Peripheral Vein, Percutaneous Approach (ICD-10-PCS; 2024-02-20)
PROC: 3E0337Z Introduction of Electrolytic and Water Balance Substance into Peripheral Vein, Percutaneous Approach (ICD-10-PCS; 2024-02-20)
PROC: 3E033GC Introduction of Other Therapeutic Substance into Peripheral Vein, Percutaneous Approach (ICD-10-PCS; 2024-02-20)
DX: F10.129 Alcohol abuse with intoxication, unspecified (principal); K70.31 Alcoholic cirrhosis of liver with ascites; K76.9 Liver disease, unspecified; R42 Dizziness and giddiness; R10.9 Unspecified abdominal pain; D69.6 Thrombocytopenia, unspecified; D64.9 Anemia, unspecified; J90 Pleural effusion, not elsewhere classified; I85.00 Esophageal varices without bleeding; E86.0 Dehydration
CPT/HCPCS: 0241U-QW; 36415; 74176-TC; 80053; 81003; 83735; 84100; 84703; 85025; 85610; 87086; 96372; 96374; 96375; 99285-25; G0378; Q0162

== ENCOUNTER 2024-02-28 15:55 | Emergency (ER) | payer OTHER | END 2024-02-28 16:40 | disposition left against medical advice (07) | LOC: JER 15:55 | DX: F10.129 Alcohol abuse with intoxication, unspecified (principal); Y90.9 Presence of alcohol in blood, level not specified | CPT/HCPCS: 99281-25 ==

== ENCOUNTER 2024-03-02 17:35 | Inpatient (IN) | payer OTHER ==
[2024-03-02 17:56] VITALS: BMI 26.5
[2024-03-02] MEDS: ONDANSETRON 4 MG/2 ML VIAL IVPUSH ONE (18:00)
[2024-03-02] MEDS ORDERED: ONDANSETRON 4 MG/2 ML VIAL ONE (18:31)
[2024-03-02] MEDS ORDERED: IBUPROFEN 400 MG TABLET (FP) PO ONE (18:45)
[2024-03-02] MEDS: IBUPROFEN 400 MG TABLET (FP) PO ONE (18:51)
[2024-03-02] MEDS ORDERED: FAMOTIDINE 20 MG/50 ML IVPB 20 MG/50 ML MG IVPB ONE (19:44)
[2024-03-02] MEDS: FAMOTIDINE 20 MG/50 ML IVPB 20 MG/50 ML MG IVPB ONE (19:48)
[2024-03-02 19:54] LABS: BASO % 1.3 % (0-2.0); HEMOGLOBIN 8.3 GM/dL (10.7-15.3); LYMPH % 29.7 % (8-40); MEAN CELL VOLUME 90.6 fl (80-96); MEAN PLT VOLUME 8.4 fl (7.5-11.1); PLATELET COUNT 61 10^3/uL (134-434); RBC 2.87 M/mm3 (3.60-5.2); RDW 24.6 % (11.6-15.6); WHITE BLOOD COUNT 3.8 K/mm3 (4.0-10.0)
[2024-03-02 20:11] VITALS: RESP 18
[2024-03-02 20:18] LABS: POTASSIUM 3.1 mmol/L (3.5-5.1)
[2024-03-02 20:19] LABS: BLOOD UREA NITROGEN 6.7 mg/dL (7-18); CALCIUM 7.9 mg/dL (8.5-10.1)
[2024-03-02 20:21] LABS: ALBUMIN 2.3 g/dl (3.4-5.0)
[2024-03-02 20:22] LABS: CREATININE 0.6 mg/dL (0.55-1.3)
[2024-03-02 20:24] LABS: BILIRUBIN,TOTAL 4.2 mg/dL (0.2-1); TOT PROT 7.5 g/dl (6.4-8.2)
[2024-03-02] MEDS: POTASSIUM CHLORIDE ORAL LIQUID 20 MEQ/15 ML PO ONE (21:20)
[2024-03-02 21:31] LABS: MAGNESIUM 1.5 mg/dL (1.8-2.4)
[2024-03-02] MEDS ORDERED: POTASSIUM CHLORIDE ORAL LIQUID 20 MEQ/15 ML ONE (21:41)
[2024-03-02 22:01] LABS: INR 1.86 (0.83-1.09); PROTHROMBIN TIME (PATIENT) 20.6 SEC (9.7-13.0)
[2024-03-02 22:03] LABS: ACTIVATED PTT 34.4 SECONDS (25.2-36.5)
[2024-03-02] MEDS ORDERED: MAGNESIUM SULFATE IN WATER 2 GM/50 ML IVPB IVPB ONE (22:35)
[2024-03-02] MEDS: MAGNESIUM SULF 50% (8.12 MEQ/2 ML-1 GM VIAL) IVPB ONE (22:45)
[2024-03-02 23:20] VITALS: BP 102/59; PULSE 73; TEMP 98
[2024-03-02] MEDS ORDERED: LACTULOSE 20 GM/30 ML UDC (FOR ORAL USE ONLY) ONE (23:31)
[2024-03-02] MEDS ORDERED: KCL 10 MEQ IVPB 10 MEQ/100 ML INFUS.BAG IVPB ONE (23:31)
[2024-03-02] MEDS: LACTULOSE 20 GM/30 ML UDC (FOR ORAL USE ONLY) PO ONE (23:49)
[2024-03-02] MEDS: KCL 10 MEQ IVPB 10 MEQ/100 ML INFUS.BAG IVPB SCH (23:49)
[2024-03-03 00:43] LABS: ANISOCYTOSIS 2+; MACROCYTOSIS 2+; TARGET CELLS 2+
[2024-03-03] MEDS ORDERED: THIAMINE HCL 200 MG/2 ML VIAL ONE (01:41)
[2024-03-03] MEDS ORDERED: KCL 10 MEQ IVPB 10 MEQ/100 ML INFUS.BAG IVPB ONE (01:41)
[2024-03-03] MEDS: THIAMINE HCL 200 MG/2 ML VIAL IVPB SCH (01:53)
[2024-03-03 02:01] LABS: BILIRUBIN,DIRECT 2.9 mg/dL (0.0-0.2)
[2024-03-03] MEDS ORDERED: FOLIC ACID 1 MG TABLET (FP) PO SCH (10:00)
[2024-03-06] MEDS ORDERED: THIAMINE HCL 200 MG/2 ML VIAL IVPB SCH (10:00)
== END 2024-03-03 03:32 | disposition left against medical advice (07) | DRG 280 ==
LOC: JER 17:35 → JERBED 03-03 00:45
PROVIDERS: ADMIT Internal Medicine; ATTEND Internal Medicine
DX: K70.10 Alcoholic hepatitis without ascites (principal); D69.6 Thrombocytopenia, unspecified; K70.30 Alcoholic cirrhosis of liver without ascites; R74.01 Elevation of levels of liver transaminase levels; E87.6 Hypokalemia; K76.82 Hepatic encephalopathy; E51.2 Wernicke's encephalopathy; F10.20 Alcohol dependence, uncomplicated
CPT/HCPCS: 36415; 71045-TC-FY; 80053; 82140; 82248; 83690; 83735; 85025; 85610; 85730; 93005; 93010; 99285-25

== ENCOUNTER 2024-03-06 20:40 | Inpatient (IN) | payer OTHER ==
[2024-03-06 22:25] LABS: BASO % 0.8 % (0-2.0); EOS % 3.5 % (0-4.5); HEMATOCRIT 27.1 % (32.4-45.2); HEMOGLOBIN 8.6 GM/dL (10.7-15.3); LYMPH % 18.5 % (8-40); MCH 29.4 pg (25.7-33.7); MCHC 31.7 g/dl (32.0-36.0); MEAN CELL VOLUME 92.5 fl (80-96); MEAN PLT VOLUME 9.2 fl (7.5-11.1); MONO % 10.4 % (3.8-10.2); NEUT % 66.8 % (42.8-82.8); PLATELET COUNT 54 10^3/uL (134-434); RBC 2.93 M/mm3 (3.60-5.2); RDW 25.4 % (11.6-15.6); WHITE BLOOD COUNT 4.9 K/mm3 (4.0-10.0)
[2024-03-06 22:45] LABS: ACTIVATED PTT 36.5 SECONDS (25.2-36.5); INR 1.87 (0.83-1.09); PROTHROMBIN TIME (PATIENT) 20.7 SEC (9.7-13.0)
[2024-03-06 22:50] LABS: POTASSIUM 3.3 mmol/L (3.5-5.1)
[2024-03-06 22:53] LABS: ALBUMIN 2.3 g/dl (3.4-5.0); CALCIUM 8.6 mg/dL (8.5-10.1)
[2024-03-06 22:54] LABS: BLOOD UREA NITROGEN 9.1 mg/dL (7-18)
[2024-03-06 22:56] LABS: ANISOCYTOSIS 2+; MACROCYTOSIS 0
[2024-03-06 22:57] LABS: CREATININE 0.6 mg/dL (0.55-1.3)
[2024-03-06 22:58] LABS: BILIRUBIN,TOTAL 4.6 mg/dL (0.2-1); TOT PROT 7.2 g/dl (6.4-8.2)
[2024-03-06] MEDS ORDERED: POTASSIUM CHLORIDE ORAL LIQUID 20 MEQ/15 ML ONE (23:30)
[2024-03-06] MEDS: POTASSIUM CHLORIDE ORAL LIQUID 20 MEQ/15 ML PO ONE (23:48)
[2024-03-07] MEDS: LACTATED RINGERS SOLUTION 1,000 ML/1,000 ML INFUS.BAG IV SCH (03:35)
[2024-03-07 06:14] LABS: HEMATOCRIT 25.6 % (32.4-45.2); HEMOGLOBIN 8.1 GM/dL (10.7-15.3); MCH 29.6 pg (25.7-33.7); MCHC 31.7 g/dl (32.0-36.0); MEAN CELL VOLUME 93.3 fl (80-96); MEAN PLT VOLUME 9.2 fl (7.5-11.1); PLATELET COUNT 54 10^3/uL (134-434); RBC 2.74 M/mm3 (3.60-5.2); WHITE BLOOD COUNT 5.5 K/mm3 (4.0-10.0)
[2024-03-07] MEDS ORDERED: FENTANYL CITRATE/PF 50 MCG/ML VIAL ONE (09:57)
[2024-03-07] MEDS ORDERED: THIAMINE 100 MG TABLET PO SCH (10:00)
[2024-03-07] MEDS ORDERED: ENOXAPARIN NA (PORCINE) 40 MG/0.4 ML DISP.SYRIN SQ SCH (10:00)
[2024-03-07] MEDS: SODIUM CHLORIDE 500 ML IV ONE (10:00)
[2024-03-07 11:39] LABS: BF WBC & OTHER NUCLEATED CELLS 124 /mm3
[2024-03-07 12:42] LABS: BODY FLUID MACROPHAGES 93 %; BODY FLUID MESOTHELIAL 1 %; BODY FLUID MONOCYTE 4 %
[2024-03-07 12:55] VITALS: RESP 18
[2024-03-07] MEDS: LORazepam 1 MG TABLET PO SCH (14:37)
[2024-03-07] MEDS: THIAMINE HCL 200 MG/2 ML VIAL IVPB SCH (14:40)
[2024-03-07] MEDS: ACAMPROSATE CALCIUM 333 MG TABLET.DR PO SCH (17:33)
[2024-03-07] MEDS: RIFAXIMIN 550 MG TABLET PO SCH (17:33)
[2024-03-07] MEDS: FOLIC ACID 1 MG TABLET (FP) PO SCH (17:33)
[2024-03-07] MEDS: LORazepam 1 MG TABLET PO PRN (20:57)
[2024-03-08] MEDS: LORazepam 1 MG TABLET PO SCH (05:36)
[2024-03-08 09:52] LABS: POTASSIUM 3.5 mmol/L (3.5-5.1)
[2024-03-08 10:00] LABS: ALBUMIN 2.4 g/dl (3.4-5.0); CALCIUM 8.5 mg/dL (8.5-10.1)
[2024-03-08 10:01] LABS: BLOOD UREA NITROGEN 7.7 mg/dL (7-18)
[2024-03-08 10:02] LABS: BASO % 0.9 % (0-2.0); EOS % 3.8 % (0-4.5); HEMATOCRIT 26.3 % (32.4-45.2); HEMOGLOBIN 8.2 GM/dL (10.7-15.3); LYMPH % 12.5 % (8-40); MCH 29.4 pg (25.7-33.7); MCHC 31.4 g/dl (32.0-36.0); MEAN CELL VOLUME 93.6 fl (80-96); MEAN PLT VOLUME 8.9 fl (7.5-11.1); MONO % 14.2 % (3.8-10.2); NEUT % 68.6 % (42.8-82.8); PLATELET COUNT 46 10^3/uL (134-434); RDW 25.9 % (11.6-15.6); WHITE BLOOD COUNT 5.3 K/mm3 (4.0-10.0)
[2024-03-08 10:03] LABS: BILIRUBIN,TOTAL 5.1 mg/dL (0.2-1)
[2024-03-08 10:04] LABS: CREATININE 0.7 mg/dL (0.55-1.3)
[2024-03-08 10:05] LABS: TOT PROT 7.6 g/dl (6.4-8.2)
[2024-03-08 15:18] VITALS: BP 133/75; PULSE 99; TEMP 98.4
[2024-03-08 16:18] VITALS: BMI 29.5
[2024-03-09] MEDS ORDERED: LORazepam 0.5 MG TABLET PO PRN
[2024-03-09] MEDS ORDERED: LORazepam 0.5 MG TABLET PO SCH (05:00)
[2024-03-09 16:08] LABS: BODY FLUID ALBUMIN 0.9 g/dL (Not Estab.)
[2024-03-10] MEDS ORDERED: LORazepam 0.5 MG TABLET PO ONE (05:00)
[2024-03-11] MEDS ORDERED: THIAMINE HCL 200 MG/2 ML VIAL IVPB SCH (10:00)
== END 2024-03-08 17:50 | disposition left against medical advice (07) | DRG 143 ==
LOC: JER 20:40 → JERBED 23:29 → J7W 03-07 10:53
PROVIDERS: ADMIT Internal Medicine; ATTEND Internal Medicine
PROC: 0W9930Z Drainage of Right Pleural Cavity with Drainage Device, Percutaneous Approach (ICD-10-PCS; principal; 2024-03-07)
DX: J90 Pleural effusion, not elsewhere classified (principal); D69.59 Other secondary thrombocytopenia; K70.30 Alcoholic cirrhosis of liver without ascites; D64.9 Anemia, unspecified; E11.9 Type 2 diabetes mellitus without complications; I10 Essential (primary) hypertension; F10.239 Alcohol dependence with withdrawal, unspecified; K76.82 Hepatic encephalopathy; R09.02 Hypoxemia; E87.6 Hypokalemia
CPT/HCPCS: 32557; 36415; 71045-TC-FY; 71046-TC-FY; 71250-TC; 76700-TC; 80053; 82042; 82140; 82150; 82465; 82945; 83615; 83986; 84157; 84478; 84484; 85025; 85027; 85610; 85730; 87070; 87075; 87102; 87116; 87205; 87206; 87210; 88108; 88305-TC; 93005; 93010; 99285-25

== ENCOUNTER 2024-03-12 21:44 | Inpatient (IN) | payer OTHER ==
[2024-03-13 00:30] LABS: VENOUS BASE EXCESS -2.4 mmol/L (-2-2); VENOUS O2 SATURATION 90.7 % (70-80); VENOUS PCO2 39.7 mmHg (38-52); VENOUS PH 7.373 (7.310-7.410)
[2024-03-13 00:40] LABS: BASO % 0.7 % (0-2.0); EOS % 5.8 % (0-4.5); HEMOGLOBIN 7.5 GM/dL (10.7-15.3); LYMPH % 22.1 % (8-40); MCH 29.2 pg (25.7-33.7); MCHC 31.3 g/dl (32.0-36.0); MEAN PLT VOLUME 8.6 fl (7.5-11.1); MONO % 14.3 % (3.8-10.2); NEUT % 57.1 % (42.8-82.8); PLATELET COUNT 48 10^3/uL (134-434); RBC 2.58 M/mm3 (3.60-5.2); WHITE BLOOD COUNT 3.8 K/mm3 (4.0-10.0)
[2024-03-13 00:45] LABS: POTASSIUM 3.2 mmol/L (3.5-5.1)
[2024-03-13 00:47] LABS: CALCIUM 7.6 mg/dL (8.5-10.1)
[2024-03-13 00:48] LABS: ALBUMIN 2.1 g/dl (3.4-5.0); BLOOD UREA NITROGEN 5.9 mg/dL (7-18); MAGNESIUM 1.7 mg/dL (1.8-2.4)
[2024-03-13 00:51] LABS: CREATININE 0.7 mg/dL (0.55-1.3)
[2024-03-13 02:08] LABS: ANISOCYTOSIS 3+; MACROCYTOSIS 3+; TARGET CELLS 1+
[2024-03-13] MEDS ORDERED: POTASSIUM CHLORIDE ORAL LIQUID 20 MEQ/15 ML ONE (02:12)
[2024-03-13] MEDS: POTASSIUM CHLORIDE ORAL LIQUID 20 MEQ/15 ML PO ONE (02:17)
[2024-03-13] MEDS ORDERED: KCL 20 MEQ PREMIX BAG 20 MEQ/100 ML INFUS.BAG IVPB SCH (05:30)
[2024-03-13] MEDS ORDERED: MAGNESIUM SULFATE IN WATER 2 GM/50 ML IVPB IVPB ONE (05:52)
[2024-03-13] MEDS: POTASSIUM CHLORIDE TABS 20 MEQ TABLET.ER (FP) PO ONE (05:53)
[2024-03-13] MEDS: MAGNESIUM SULF 50% (8.12 MEQ/2 ML-1 GM VIAL) IVPB ONE (05:53)
[2024-03-13 06:23] LABS: HEMATOCRIT 23.8 % (32.4-45.2); HEMOGLOBIN 7.5 GM/dL (10.7-15.3); MCH 29.4 pg (25.7-33.7); MCHC 31.6 g/dl (32.0-36.0); MEAN PLT VOLUME 8.5 fl (7.5-11.1); PLATELET COUNT 51 10^3/uL (134-434); RBC 2.56 M/mm3 (3.60-5.2); RDW 26.9 % (11.6-15.6); WHITE BLOOD COUNT 3.8 K/mm3 (4.0-10.0)
[2024-03-13 06:38] LABS: POTASSIUM 3.8 mmol/L (3.5-5.1)
[2024-03-13 06:41] LABS: ALBUMIN 2.1 g/dl (3.4-5.0); CALCIUM 7.4 mg/dL (8.5-10.1)
[2024-03-13 06:42] LABS: BLOOD UREA NITROGEN 5.3 mg/dL (7-18); MAGNESIUM 1.6 mg/dL (1.8-2.4)
[2024-03-13 06:45] LABS: CREATININE 0.6 mg/dL (0.55-1.3); PHOSPHOROUS 2.8 mg/dL (2.5-4.9)
[2024-03-13 06:46] LABS: BILIRUBIN,TOTAL 2.9 mg/dL (0.2-1)
[2024-03-13 07:40] LABS: BILIRUBIN,DIRECT 2.4 mg/dL (0.0-0.2)
[2024-03-13] MEDS ORDERED: LORazepam 1 MG TABLET PO PRN (08:59)
[2024-03-13] MEDS: ACAMPROSATE CALCIUM 333 MG TABLET.DR PO SCH (09:23)
[2024-03-13] MEDS: THIAMINE HCL 200 MG/2 ML VIAL IVPB SCH (09:25)
[2024-03-13] MEDS: CHOLECALCIFEROL (VIT D3) 400 UNIT (10 MCG) TABLET PO SCH (09:25)
[2024-03-13] MEDS: RIFAXIMIN 550 MG TABLET PO SCH (09:25)
[2024-03-13] MEDS: FOLIC ACID 1 MG TABLET (FP) PO SCH (09:25)
[2024-03-13 10:18] VITALS: BP 101/60; PULSE 85; RESP 16; TEMP 98.1
[2024-03-13] MEDS ORDERED: LORazepam 1 MG TABLET PO SCH (11:00)
[2024-03-13 11:48] VITALS: BMI 29.5
[2024-03-15] MEDS ORDERED: LORazepam 1 MG TABLET PO SCH (05:00)
[2024-03-16] MEDS ORDERED: LORazepam 0.5 MG TABLET PO PRN
[2024-03-16] MEDS ORDERED: LORazepam 0.5 MG TABLET PO SCH (05:00)
[2024-03-16] MEDS ORDERED: THIAMINE HCL 200 MG/2 ML VIAL IVPB SCH (10:00)
[2024-03-17] MEDS ORDERED: LORazepam 0.5 MG TABLET PO ONE (05:00)
== END 2024-03-13 13:00 | disposition left against medical advice (07) | DRG 143 ==
LOC: JER 21:44 → JERBED 03-13 01:48 → J6S 03-13 06:24
PROVIDERS: ADMIT Internal Medicine
DX: J90 Pleural effusion, not elsewhere classified (principal); D61.818 Other pancytopenia; K76.6 Portal hypertension; D64.9 Anemia, unspecified; E87.6 Hypokalemia; F10.239 Alcohol dependence with withdrawal, unspecified; I10 Essential (primary) hypertension; K70.31 Alcoholic cirrhosis of liver with ascites; R09.02 Hypoxemia
CPT/HCPCS: 36415; 71045-TC-FY; 80053; 80307; 82248; 82803; 83735; 84100; 84484; 85025; 85027; 93005; 93010; 99285-25

== ENCOUNTER 2024-03-14 20:21 | Emergency (ER) | payer OTHER ==
[2024-03-14 20:50] VITALS: BP 122/67; PULSE 89; RESP 18; TEMP 98.3; BMI 28.3
[2024-03-14] MEDS ORDERED: METOCLOPRAMIDE HCL INJECTION 10 MG/2 ML VIAL ONE (22:19)
[2024-03-14 22:35] LABS: EPI CELLS 11 /uL (0-25.1); HYALINE CASTS 0 /uL (0-3.1); PH,URINE 6.5 (5.0-8.0); URINE APPEARANCE CLEAR; URINE BACTERIA 183 /uL (0-1359); URINE BILIRUBIN NEGATIVE (NEGATIVE); URINE COLOR YELLOW; URINE GLUCOSE (UA) NEGATIVE (NEGATIVE); URINE KETONE NEGATIVE (NEGATIVE); URINE LEUK ESTERASE TRACE (NEGATIVE); URINE NITRITE NEGATIVE (NEGATIVE); URINE PROTEIN NEGATIVE (NEGATIVE); URINE RBC 12 /uL (0-23.9); URINE WBC 11 /uL (0-25.8)
[2024-03-14] MEDS: METOCLOPRAMIDE HCL INJECTION 10 MG/2 ML VIAL IVPB ONE (22:36)
[2024-03-14 22:48] LABS: VENOUS BASE EXCESS -3.1 mmol/L (-2-2); VENOUS O2 SATURATION 78.4 % (70-80); VENOUS PCO2 45.5 mmHg (38-52); VENOUS PH 7.32 (7.310-7.410)
[2024-03-14 22:51] LABS: BASO % 1.6 % (0-2.0); EOS % 4.3 % (0-4.5); HEMATOCRIT 28.4 % (32.4-45.2); LYMPH % 25.7 % (8-40); MCHC 31.8 g/dl (32.0-36.0); MEAN CELL VOLUME 91.5 fl (80-96); MEAN PLT VOLUME 8.5 fl (7.5-11.1); MONO % 9.5 % (3.8-10.2); NEUT % 58.9 % (42.8-82.8); PLATELET COUNT 71 10^3/uL (134-434); RBC 3.11 M/mm3 (3.60-5.2); RDW 26.8 % (11.6-15.6); WHITE BLOOD COUNT 4.6 K/mm3 (4.0-10.0)
[2024-03-14 23:06] LABS: INR 1.68 (0.83-1.09); PROTHROMBIN TIME (PATIENT) 18.7 SEC (9.7-13.0)
[2024-03-14 23:18] LABS: POTASSIUM 3.9 mmol/L (3.5-5.1)
[2024-03-14 23:19] LABS: CALCIUM 8.3 mg/dL (8.5-10.1)
[2024-03-14 23:20] LABS: ALBUMIN 2.3 g/dl (3.4-5.0); BLOOD UREA NITROGEN 3.7 mg/dL (7-18); MAGNESIUM 1.6 mg/dL (1.8-2.4)
[2024-03-14 23:23] LABS: CREATININE 0.5 mg/dL (0.55-1.3)
[2024-03-14 23:25] LABS: BILIRUBIN,TOTAL 3.8 mg/dL (0.2-1); TOT PROT 7.8 g/dl (6.4-8.2)
[2024-03-14 23:43] LABS: LACTIC ACID 2.7 mmol/L (0.4-2.0)
== END 2024-03-14 23:26 | disposition left against medical advice (07) ==
LOC: JER 20:21
PROC: 3E033GC Introduction of Other Therapeutic Substance into Peripheral Vein, Percutaneous Approach (ICD-10-PCS; principal; 2024-03-14)
DX: R06.00 Dyspnea, unspecified (principal); R51.9 Headache, unspecified; R11.0 Nausea
CPT/HCPCS: 36415; 71045-TC-FY; 80053; 80307; 81003; 82140; 82803; 83605; 83690; 83735; 85025; 85610; 85730; 87086; 87186; 99284-25

== ENCOUNTER 2024-03-15 16:46 | Emergency (ER) | payer OTHER ==
[2024-03-15 16:58] VITALS: BP 108/58; PULSE 95; RESP 18; TEMP 97.9; BMI 28.8
[2024-03-15] MEDS ORDERED: FAMOTIDINE 20 MG TABLET PO ONE (18:30)
== END 2024-03-15 19:30 | disposition left against medical advice (07) ==
LOC: JER 16:46
DX: R51.9 Headache, unspecified (principal); R11.0 Nausea; R05.9 Cough, unspecified; M54.9 Dorsalgia, unspecified; R63.0 Anorexia
CPT/HCPCS: 93005; 93010; 99283-25

== ENCOUNTER 2024-03-16 00:14 | Observation (INO) | payer OTHER ==
[2024-03-16] MEDS ORDERED: LACTULOSE 20 GM/30 ML UDC (FOR ORAL USE ONLY) ONE (03:22)
[2024-03-16] MEDS: LACTULOSE 20 GM/30 ML UDC (FOR ORAL USE ONLY) PO ONE (03:27)
[2024-03-16] MEDS ORDERED: METOCLOPRAMIDE HCL 10 MG TABLET (FP) PO ONE (04:37)
[2024-03-16] MEDS: METOCLOPRAMIDE HCL 10 MG TABLET (FP) PO ONE (04:53)
[2024-03-16 06:32] LABS: N-TERMINAL BNP 175.8 pg/ml (5-125)
[2024-03-16 07:14] LABS: LACTIC ACID 2.6 mmol/L (0.4-2.0)
[2024-03-16 08:24] LABS: CHLORIDE 108 mmol/L (98-107); POTASSIUM 3.5 mmol/L (3.5-5.1); SODIUM 142 mmol/L (136-145)
[2024-03-16 08:26] LABS: CALCIUM 8.3 mg/dL (8.5-10.1)
[2024-03-16 08:27] LABS: ALBUMIN 2.3 g/dl (3.4-5.0); ANION GAP 9 mmol/L (4-13); BLOOD UREA NITROGEN 5.2 mg/dL (7-18); CO2 26 mmol/L (21-32); GLUCOSE,RANDOM 78 mg/dL (74-106)
[2024-03-16 08:30] LABS: CREATININE 0.6 mg/dL (0.55-1.3); SGOT/AST 228 U/L (15-37); SGPT/ALT 79 U/L (13-61)
[2024-03-16 08:31] LABS: BILIRUBIN,TOTAL 4.6 mg/dL (0.2-1); TOT PROT 7.8 g/dl (6.4-8.2)
[2024-03-16 08:33] LABS: ALK PHOS 153 U/L (45-117)
[2024-03-16 08:35] LABS: BASO % 1.6 % (0-2.0); EOS % 1.5 % (0-4.5); HEMATOCRIT 26.9 % (32.4-45.2); HEMOGLOBIN 8.4 GM/dL (10.7-15.3); LYMPH % 25.7 % (8-40); MCH 28.7 pg (25.7-33.7); MCHC 31.1 g/dl (32.0-36.0); MEAN CELL VOLUME 92.3 fl (80-96); MEAN PLT VOLUME 8.3 fl (7.5-11.1); MONO % 10.8 % (3.8-10.2); NEUT % 60.4 % (42.8-82.8); PLATELET COUNT 88 10^3/uL (134-434); RBC 2.92 M/mm3 (3.60-5.2); RDW 25.7 % (11.6-15.6); WHITE BLOOD COUNT 5.5 K/mm3 (4.0-10.0)
[2024-03-16] MEDS ORDERED: LORazepam 1 MG TABLET PO PRN (08:49)
[2024-03-16 08:53] LABS: POTASSIUM 3.7 mmol/L (3.5-5.1)
[2024-03-16 08:55] LABS: ALBUMIN 2.4 g/dl (3.4-5.0); CALCIUM 8.1 mg/dL (8.5-10.1)
[2024-03-16 08:56] LABS: BLOOD UREA NITROGEN 5.2 mg/dL (7-18)
[2024-03-16 08:59] LABS: CREATININE 0.6 mg/dL (0.55-1.3)
[2024-03-16 09:00] LABS: BILIRUBIN,TOTAL 4.5 mg/dL (0.2-1); TOT PROT 7.6 g/dl (6.4-8.2)
[2024-03-16] MEDS ORDERED: LORazepam 2 MG/ML SDV VIAL IVPUSH PRN (09:15)
[2024-03-16 09:32] LABS: BILIRUBIN,DIRECT 2.9 mg/dL (0.0-0.2)
[2024-03-16 09:33] LABS: MAGNESIUM 1.6 mg/dL (1.8-2.4)
[2024-03-16] MEDS ORDERED: PANTOPRAZOLE 40 MG TABLET PO SCH (10:00)
[2024-03-16] MEDS ORDERED: FOLIC ACID 1 MG TABLET (FP) ONE (10:03)
[2024-03-16 10:30] LABS: LACTIC ACID 2.4 mmol/L (0.4-2.0)
[2024-03-16 10:32] VITALS: RESP 18
[2024-03-16] MEDS: FOLIC ACID 1 MG TABLET (FP) PO SCH (10:48)
[2024-03-16] MEDS: RIFAXIMIN 550 MG TABLET PO SCH (10:48)
[2024-03-16] MEDS ORDERED: LORazepam 2 MG TABLET PO SCH (11:00)
[2024-03-16 12:02] LABS: ANISOCYTOSIS 2+; PLATELET ESTIMATE DECREASED
[2024-03-16 12:30] VITALS: BMI 28.8
[2024-03-16 12:41] LABS: LACTIC ACID 2.3 mmol/L (0.4-2.0)
[2024-03-16] MEDS: MAGNESIUM 2GM/50ML STERILE WATER IVPB IVPB ONE (13:01)
[2024-03-16] MEDS: THIAMINE HCL 200 MG/2 ML VIAL IVPB SCH (15:24)
[2024-03-16] MEDS: LACTULOSE 20 GM/30 ML UDC (FOR ORAL USE ONLY) PO SCH (15:35)
[2024-03-16 17:42] VITALS: BP 124/69; PULSE 92; TEMP 98.6
[2024-03-18] MEDS ORDERED: LORazepam 1 MG TABLET PO SCH (05:00)
[2024-03-19] MEDS ORDERED: LORazepam 0.5 MG TABLET PO PRN
[2024-03-19] MEDS ORDERED: LORazepam 0.5 MG TABLET PO SCH (05:00)
[2024-03-20] MEDS ORDERED: LORazepam 0.5 MG TABLET PO ONE (05:00)
== END 2024-03-16 17:43 | disposition left against medical advice (07) ==
LOC: JER 00:14 → JERBED 06:04 → INTOOBSV 06:04 → J5S 11:21
PROVIDERS: ADMIT Student in an Organized Health Care Education/Training Program; ATTEND Student in an Organized Health Care Education/Training Program
PROC: 3E033GC Introduction of Other Therapeutic Substance into Peripheral Vein, Percutaneous Approach (ICD-10-PCS; principal; 2024-03-16)
DX: R09.02 Hypoxemia (principal); J90 Pleural effusion, not elsewhere classified; K74.60 Unspecified cirrhosis of liver; D69.6 Thrombocytopenia, unspecified; R18.8 Other ascites; M54.9 Dorsalgia, unspecified; K76.82 Hepatic encephalopathy; I85.00 Esophageal varices without bleeding; G89.29 Other chronic pain; Z53.29 Procedure and treatment not carried out because of patient's decision for other reasons
CPT/HCPCS: 36415; 71045-TC-FY; 74181-TC; 80053; 82248; 82550; 83605; 83735; 83880; 84484; 84702; 85025; 93005; 93010; 96374; 96375; 99285-25; G0378

== ENCOUNTER 2024-06-20 09:15 | Emergency (ER) | payer OTHER ==
[2024-06-20 09:55] VITALS: BP 115/69; PULSE 80; RESP 16; TEMP 98.1; BMI 26.4
== END 2024-06-20 12:50 | disposition home or self-care (01) ==
LOC: JER 09:15
DX: F10.120 Alcohol abuse with intoxication, uncomplicated (principal); R42 Dizziness and giddiness; H53.8 Other visual disturbances
CPT/HCPCS: 82962; 93005; 93010; 99284-25

== ENCOUNTER 2024-06-20 20:47 | Emergency (ER) | payer OTHER ==
[2024-06-20 20:57] VITALS: TEMP 98; BMI 26.4
[2024-06-21 01:51] VITALS: BP 101/52; PULSE 78; RESP 19
== END 2024-06-21 03:50 | disposition home or self-care (01) ==
LOC: JER 20:47
DX: R51.9 Headache, unspecified (principal); H53.8 Other visual disturbances
CPT/HCPCS: 70450-TC; 76512; 82962; 99284-25

== ENCOUNTER 2024-06-21 22:45 | Emergency (ER) | payer OTHER ==
[2024-06-21 23:03] VITALS: BP 116/78; PULSE 84; RESP 14; TEMP 98.6; BMI 26.3
== END 2024-06-22 04:31 | disposition home or self-care (01) ==
LOC: JER 22:45
DX: F10.929 Alcohol use, unspecified with intoxication, unspecified (principal); Y90.9 Presence of alcohol in blood, level not specified; R51.9 Headache, unspecified
CPT/HCPCS: 99283-25

== ENCOUNTER 2024-06-22 18:34 | Emergency (ER) | payer OTHER ==
[2024-06-22 18:53] VITALS: BP 104/67; PULSE 82; RESP 18; TEMP 97.9; BMI 29.7
[2024-06-22 20:54] LABS: VENOUS BASE EXCESS -7.8 mmol/L (-2-2); VENOUS PCO2 44.5 mmHg (38-52); VENOUS PH 7.248 (7.310-7.410)
[2024-06-22 20:57] LABS: BASO % 0.4 % (0-2.0); EOS % 1.2 % (0-4.5); HEMATOCRIT 24.7 % (32.4-45.2); HEMOGLOBIN 8.2 GM/dL (10.7-15.3); LYMPH % 30.2 % (8-40); MCH 29.2 pg (25.7-33.7); MCHC 33.3 g/dl (32.0-36.0); MEAN CELL VOLUME 87.8 fl (80-96); MONO % 4.6 % (3.8-10.2); NEUT % 63.6 % (42.8-82.8); PLATELET COUNT 85 10^3/uL (134-434); RBC 2.82 M/mm3 (3.60-5.2); RDW 18.5 % (11.6-15.6); WHITE BLOOD COUNT 4.3 K/mm3 (4.0-10.0)
[2024-06-22 21:04] LABS: INR 1.96 (0.83-1.09); PROTHROMBIN TIME (PATIENT) 21.6 SEC (9.7-13.0)
[2024-06-22 21:07] LABS: ACTIVATED PTT 32.9 SECONDS (25.2-36.5)
[2024-06-22 21:16] LABS: POTASSIUM 3.5 mmol/L (3.5-5.1)
[2024-06-22 21:19] LABS: ALBUMIN 2.4 g/dl (3.4-5.0); CALCIUM 7.8 mg/dL (8.5-10.1)
[2024-06-22 21:20] LABS: BLOOD UREA NITROGEN 11.6 mg/dL (7-18)
[2024-06-22 21:23] LABS: CREATININE 0.8 mg/dL (0.55-1.3)
[2024-06-22 21:24] LABS: BILIRUBIN,TOTAL 2.4 mg/dL (0.2-1); TOT PROT 7.5 g/dl (6.4-8.2)
[2024-06-22 21:28] LABS: LACTIC ACID 4.1 mmol/L (0.4-2.0)
== END 2024-06-22 21:16 | disposition left against medical advice (07) ==
LOC: JER 18:34
DX: R42 Dizziness and giddiness (principal); R51.9 Headache, unspecified; K92.0 Hematemesis; M54.6 Pain in thoracic spine; Z20.822 Contact with and (suspected) exposure to COVID-19
CPT/HCPCS: 0241U-QW; 36415; 80053; 82140; 82803; 83605; 83690; 84484; 85025; 85610; 85730; 99283-25

== ENCOUNTER 2024-06-23 12:48 | Emergency (ER) | payer OTHER ==
[2024-06-23 13:03] VITALS: BP 124/78; RESP 18; TEMP 98.3; BMI 26.4
[2024-06-23 13:41] VITALS: PULSE 87
[2024-06-23] MEDS ORDERED: MECLIZINE HCL 25 MG TABLET (FP) ONE (13:46)
[2024-06-23] MEDS ORDERED: ACETAMINOPHEN 325 MG TABLET (FP) ONE (13:47)
[2024-06-23] MEDS: ACETAMINOPHEN 325 MG TABLET (FP) PO ONE (13:49)
[2024-06-23] MEDS: MECLIZINE HCL 25 MG TABLET (FP) PO ONE (13:49)
[2024-06-23] MEDS: SODIUM CHLORIDE 0.9% 500 ML INFUS.BAG IV ONE (13:50)
== END 2024-06-23 14:35 | disposition left against medical advice (07) ==
LOC: JER 12:48
DX: R42 Dizziness and giddiness (principal); R51.9 Headache, unspecified
CPT/HCPCS: 93005; 93010; 99283-25

== ENCOUNTER 2024-06-23 15:44 | Emergency (ER) | payer OTHER ==
[2024-06-23 15:58] VITALS: BP 107/65; PULSE 91; RESP 18; TEMP 98.2; BMI 26.4
[2024-06-23] MEDS ORDERED: KETOROLAC TROMETHAMINE 15 MG/ML VIAL ONE (17:40)
[2024-06-23] MEDS: KETOROLAC TROMETHAMINE 15 MG/ML VIAL IVPUSH ONE (18:03)
[2024-06-23] MEDS: SODIUM CHLORIDE 0.9% 500 ML INFUS.BAG IV ONE (18:03)
[2024-06-23 18:09] LABS: BASO % 0.1 % (0-2.0); EOS % 0.5 % (0-4.5); HEMATOCRIT 26.1 % (32.4-45.2); HEMOGLOBIN 8.7 GM/dL (10.7-15.3); LYMPH % 20.3 % (8-40); MCH 29.3 pg (25.7-33.7); MCHC 33.3 g/dl (32.0-36.0); MEAN CELL VOLUME 87.8 fl (80-96); MEAN PLT VOLUME 7.2 fl (7.5-11.1); MONO % 3.6 % (3.8-10.2); NEUT % 75.5 % (42.8-82.8); PLATELET COUNT 72 10^3/uL (134-434); RBC 2.98 M/mm3 (3.60-5.2); RDW 18.1 % (11.6-15.6); WHITE BLOOD COUNT 4.5 K/mm3 (4.0-10.0)
[2024-06-23 18:23] LABS: INR 2.07 (0.83-1.09); PROTHROMBIN TIME (PATIENT) 22.6 SEC (9.7-13.0)
[2024-06-23 18:28] LABS: POTASSIUM 3.6 mmol/L (3.5-5.1)
[2024-06-23 18:29] LABS: MAGNESIUM 1.8 mg/dL (1.8-2.4)
[2024-06-23 18:31] LABS: ALBUMIN 2.5 g/dl (3.4-5.0); BLOOD UREA NITROGEN 12.3 mg/dL (7-18)
[2024-06-23 18:34] LABS: CREATININE 0.8 mg/dL (0.55-1.3)
[2024-06-23 18:36] LABS: BILIRUBIN,TOTAL 3.2 mg/dL (0.2-1); TOT PROT 7.7 g/dl (6.4-8.2)
[2024-06-23] MEDS ORDERED: MAGNESIUM SULFATE IN WATER 2 GM/50 ML IVPB IVPB ONE (18:36)
[2024-06-23] MEDS ORDERED: POTASSIUM CHLORIDE ORAL LIQUID 20 MEQ/15 ML ONE (18:36)
[2024-06-23] MEDS: MAGNESIUM SULFATE IN WATER 2 GM/50 ML IVPB IVPB ONE (18:44)
[2024-06-23] MEDS: POTASSIUM CHLORIDE ORAL LIQUID 20 MEQ/15 ML PO ONE (18:44)
[2024-06-23] MEDS ORDERED: METOCLOPRAMIDE HCL INJECTION 10 MG/2 ML VIAL ONE (18:51)
[2024-06-23] MEDS: METOCLOPRAMIDE HCL INJECTION 10 MG/2 ML VIAL IVPUSH ONE (18:56)
== END 2024-06-23 19:25 | disposition left against medical advice (07) ==
LOC: JER 15:44
PROC: 3E033GC Introduction of Other Therapeutic Substance into Peripheral Vein, Percutaneous Approach (ICD-10-PCS; principal; 2024-06-23)
PROC: 3E0333Z Introduction of Anti-inflammatory into Peripheral Vein, Percutaneous Approach (ICD-10-PCS; 2024-06-23)
PROC: 3E033GC Introduction of Other Therapeutic Substance into Peripheral Vein, Percutaneous Approach (ICD-10-PCS; 2024-06-23)
DX: F10.920 Alcohol use, unspecified with intoxication, uncomplicated (principal); Z20.822 Contact with and (suspected) exposure to COVID-19
CPT/HCPCS: 0241U-QW; 36415; 80053; 80307; 82140; 83735; 84484; 85025; 85610; 99284-25

== ENCOUNTER 2024-06-25 14:10 | Emergency (ER) | payer OTHER ==
[2024-06-25 15:15] VITALS: BP 113/70; PULSE 87; RESP 18; TEMP 98; BMI 26.2
== END 2024-06-25 17:16 | disposition home or self-care (01) ==
LOC: JER 14:10
DX: F10.129 Alcohol abuse with intoxication, unspecified (principal); Y90.9 Presence of alcohol in blood, level not specified
CPT/HCPCS: 99283-25

== ENCOUNTER 2024-06-25 20:30 | Emergency (ER) | payer OTHER ==
[2024-06-25 20:34] VITALS: BP 109/66; PULSE 88; RESP 18; TEMP 98.2; BMI 26.4
[2024-06-25] MEDS: MECLIZINE HCL 25 MG TABLET (FP) PO ONE (21:09)
[2024-06-25 21:53] LABS: BASO % 0.4 % (0-2.0); EOS % 2.3 % (0-4.5); HEMATOCRIT 23.8 % (32.4-45.2); HEMOGLOBIN 7.9 GM/dL (10.7-15.3); MCH 29.6 pg (25.7-33.7); MCHC 33.2 g/dl (32.0-36.0); MEAN CELL VOLUME 89.2 fl (80-96); MEAN PLT VOLUME 7.3 fl (7.5-11.1); MONO % 5.9 % (3.8-10.2); NEUT % 71.4 % (42.8-82.8); PLATELET COUNT 55 10^3/uL (134-434); RBC 2.67 M/mm3 (3.60-5.2); RDW 18.9 % (11.6-15.6); WHITE BLOOD COUNT 4.3 K/mm3 (4.0-10.0)
[2024-06-25 22:21] LABS: POTASSIUM 3.3 mmol/L (3.5-5.1)
[2024-06-25 22:23] LABS: ALBUMIN 2.2 g/dl (3.4-5.0); BLOOD UREA NITROGEN 11.1 mg/dL (7-18); CALCIUM 7.4 mg/dL (8.5-10.1)
[2024-06-25 22:26] LABS: CREATININE 0.7 mg/dL (0.55-1.3)
[2024-06-25 22:27] LABS: BILIRUBIN,TOTAL 2.5 mg/dL (0.2-1); TOT PROT 7.2 g/dl (6.4-8.2)
== END 2024-06-26 01:50 | disposition home or self-care (01) ==
LOC: JER 20:30
DX: R42 Dizziness and giddiness (principal); R11.2 Nausea with vomiting, unspecified
CPT/HCPCS: 36415; 80053; 80307; 84703; 85025; 99283-25

== ENCOUNTER 2024-06-26 20:39 | Emergency (ER) | payer OTHER ==
[2024-06-26 20:42] VITALS: BP 114/68; PULSE 92; RESP 18; TEMP 97.8; BMI 26.4
== END 2024-06-26 22:22 | disposition home or self-care (01) ==
LOC: JER 20:39
DX: R42 Dizziness and giddiness (principal)
CPT/HCPCS: 99283-25

== ENCOUNTER 2024-07-07 08:52 | Observation (INO) | payer OTHER ==
[2024-07-07 09:35] VITALS: TEMP 97.7; BMI 26.4
[2024-07-07] MEDS: SODIUM CHLORIDE 0.9% 500 ML INFUS.BAG IV ONE (09:54)
[2024-07-07 10:02] LABS: BASO % 0.6 % (0-2.0); EOS % 3.5 % (0-4.5); HEMATOCRIT 23.1 % (32.4-45.2); HEMOGLOBIN 7.6 GM/dL (10.7-15.3); LYMPH % 23.5 % (8-40); MCH 29.6 pg (25.7-33.7); MCHC 32.6 g/dl (32.0-36.0); MEAN CELL VOLUME 90.7 fl (80-96); MEAN PLT VOLUME 7.7 fl (7.5-11.1); MONO % 14.1 % (3.8-10.2); NEUT % 58.3 % (42.8-82.8); PLATELET COUNT 38 10^3/uL (134-434); RBC 2.55 M/mm3 (3.60-5.2); RDW 20.8 % (11.6-15.6); WHITE BLOOD COUNT 2.5 K/mm3 (4.0-10.0)
[2024-07-07 10:16] LABS: POTASSIUM 3.9 mmol/L (3.5-5.1)
[2024-07-07 10:18] LABS: ALBUMIN 2.4 g/dl (3.4-5.0); CALCIUM 8.1 mg/dL (8.5-10.1)
[2024-07-07 10:19] LABS: BLOOD UREA NITROGEN 6.6 mg/dL (7-18)
[2024-07-07 10:21] LABS: CREATININE 0.7 mg/dL (0.55-1.3)
[2024-07-07 10:22] LABS: BILIRUBIN,TOTAL 2.9 mg/dL (0.2-1); TOT PROT 7.5 g/dl (6.4-8.2)
[2024-07-07] MEDS ORDERED: THIAMINE HCL 200 MG/2 ML VIAL ONE (10:32)
[2024-07-07 10:36] LABS: MAGNESIUM 1.6 mg/dL (1.8-2.4)
[2024-07-07] MEDS: THIAMINE HCL 200 MG/2 ML VIAL IVPB ONE (10:45)
[2024-07-07 11:07] LABS: ANISOCYTOSIS 1+; MACROCYTOSIS 0; OVALOCYTE 1+
[2024-07-07] MEDS ORDERED: MAGNESIUM 1GM/D5W - 1 GM/100 ML IVPB IVPB ONE (11:53)
[2024-07-07] MEDS: MAGNESIUM 1GM/D5W - 1 GM/100 ML IVPB IVPB ONE (12:06)
[2024-07-07] MEDS ORDERED: FOLIC ACID 1 MG TABLET (FP) ONE (12:50)
[2024-07-07] MEDS: FOLIC ACID 1 MG TABLET (FP) PO ONE (12:56)
[2024-07-07 18:24] VITALS: BP 107/67; PULSE 67; RESP 18
[2024-07-08] MEDS ORDERED: THIAMINE HCL 200 MG/2 ML VIAL IVPB SCH (10:00)
[2024-07-08] MEDS ORDERED: PANTOPRAZOLE SODIUM 40 MG VIAL IVPUSH SCH (10:00)
[2024-07-08] MEDS ORDERED: ENOXAPARIN NA (PORCINE) 40 MG/0.4 ML DISP.SYRIN SQ SCH (10:00)
== END 2024-07-07 20:41 | disposition home or self-care (01) ==
LOC: JER 08:52 → JERBED 11:50
PROVIDERS: ATTEND Internal Medicine
PROC: 3E033GC Introduction of Other Therapeutic Substance into Peripheral Vein, Percutaneous Approach (ICD-10-PCS; principal; 2024-07-07)
PROC: 3E033GC Introduction of Other Therapeutic Substance into Peripheral Vein, Percutaneous Approach (ICD-10-PCS; 2024-07-07)
DX: F10.99 Alcohol use, unspecified with unspecified alcohol-induced disorder (principal); K74.60 Unspecified cirrhosis of liver; G89.29 Other chronic pain; I85.00 Esophageal varices without bleeding; E83.42 Hypomagnesemia; R29.6 Repeated falls; I10 Essential (primary) hypertension; D64.9 Anemia, unspecified; D69.6 Thrombocytopenia, unspecified; K76.9 Liver disease, unspecified; R79.89 Other specified abnormal findings of blood chemistry
CPT/HCPCS: 36415; 70450-TC; 71045-TC-FY; 80053; 83690; 83735; 84484; 85025; 93005; 93010; 96365; 96375; 99285-25; G0378

== ENCOUNTER 2024-07-11 23:16 | Observation (INO) | payer OTHER ==
[2024-07-11 23:23] VITALS: BP 99/60; PULSE 96; RESP 20; TEMP 97.8; BMI 26.4
[2024-07-12] MEDS ORDERED: THIAMINE HCL 200 MG/2 ML VIAL ONE (01:00)
[2024-07-12] MEDS ORDERED: MULTIVITAMINS (DAILY MVI) TABLET (FP) ONE (01:00)
[2024-07-12] MEDS ORDERED: FOLIC ACID 1 MG TABLET (FP) ONE (01:01)
[2024-07-12 01:30] LABS: BASO % 0.3 % (0-2.0); EOS % 0.1 % (0-4.5); HEMATOCRIT 24.5 % (32.4-45.2); HEMOGLOBIN 7.8 GM/dL (10.7-15.3); LYMPH % 7.9 % (8-40); MCH 28.3 pg (25.7-33.7); MCHC 31.6 g/dl (32.0-36.0); MEAN CELL VOLUME 89.4 fl (80-96); MEAN PLT VOLUME 8.4 fl (7.5-11.1); MONO % 14.3 % (3.8-10.2); NEUT % 77.4 % (42.8-82.8); PLATELET COUNT 51 10^3/uL (134-434); RBC 2.75 M/mm3 (3.60-5.2); RDW 22.2 % (11.6-15.6)
[2024-07-12] MEDS: FOLIC ACID 1 MG TABLET (FP) PO ONE (01:35)
[2024-07-12] MEDS: MULTIVITAMINS (DAILY MVI) TABLET (FP) PO ONE (01:35)
[2024-07-12] MEDS: THIAMINE HCL 200 MG/2 ML VIAL IVPB ONE (01:35)
[2024-07-12] MEDS: LACTATED RINGERS SOLUTION 1000 ML INFUS.BAG IV ONE (01:35)
[2024-07-12 01:37] LABS: INR 1.74 (0.83-1.09); PROTHROMBIN TIME (PATIENT) 19.1 SEC (9.7-13.0)
[2024-07-12 01:40] LABS: ACTIVATED PTT 33.8 SECONDS (25.2-36.5)
[2024-07-12 01:57] LABS: ALBUMIN 2.2 g/dl (3.4-5.0); BLOOD UREA NITROGEN 15.8 mg/dL (7-18); MAGNESIUM 1.7 mg/dL (1.8-2.4)
[2024-07-12 02:00] LABS: CREATININE 0.8 mg/dL (0.55-1.3)
[2024-07-12 02:02] LABS: BILIRUBIN,TOTAL 4.2 mg/dL (0.2-1); TOT PROT 7.5 g/dl (6.4-8.2)
[2024-07-12 02:07] LABS: CALCIUM 7.2 mg/dL (8.5-10.1); POTASSIUM 4.3 mmol/L (3.5-5.1)
[2024-07-12] MEDS ORDERED: AZITHROMYCIN IVPB 500 MG/250 ML BAG IVPB ONE (02:35)
[2024-07-12] MEDS ORDERED: CEFTRIAXONE 1 G/50 ML PREMIX 50 ML IVPB ONE (02:35)
[2024-07-12] MEDS: CEFTRIAXONE 1 GM in DEXTROSE 5%-WATER - 100 ML IVPB ONE (02:41)
[2024-07-12 02:51] LABS: OVALOCYTE 1+; TEAR DROP CELLS 1+
[2024-07-12] MEDS: AZITHROMYCIN IVPB 500 MG in DEXTROSE 5%-WATER - 250 ML IVPB ONE (03:08)
[2024-07-12 04:49] LABS: BILIRUBIN,DIRECT 2.4 mg/dL (0.0-0.2)
[2024-07-12] MEDS ORDERED: ENOXAPARIN NA (PORCINE) 40 MG/0.4 ML DISP.SYRIN SQ SCH (10:00)
== END 2024-07-12 06:11 | disposition left against medical advice (07) ==
LOC: JER 23:16 → JERBED 07-12 02:48
PROVIDERS: ADMIT Student in an Organized Health Care Education/Training Program; ATTEND Student in an Organized Health Care Education/Training Program
PROC: 3E03329 Introduction of Other Anti-infective into Peripheral Vein, Percutaneous Approach (ICD-10-PCS; principal; 2024-07-12)
PROC: 3E0337Z Introduction of Electrolytic and Water Balance Substance into Peripheral Vein, Percutaneous Approach (ICD-10-PCS; 2024-07-12)
PROC: 3E033GC Introduction of Other Therapeutic Substance into Peripheral Vein, Percutaneous Approach (ICD-10-PCS; 2024-07-12)
DX: J18.9 Pneumonia, unspecified organism (principal); K70.11 Alcoholic hepatitis with ascites; F10.99 Alcohol use, unspecified with unspecified alcohol-induced disorder; D64.9 Anemia, unspecified; D72.819 Decreased white blood cell count, unspecified; R73.03 Prediabetes; K27.9 Peptic ulcer, site unspecified, unspecified as acute or chronic, without hemorrhage or perforation; J94.8 Other specified pleural conditions; K70.31 Alcoholic cirrhosis of liver with ascites; Z87.19 Personal history of other diseases of the digestive system; D61.818 Other pancytopenia
CPT/HCPCS: 36415; 71045-TC-FY; 80053; 82248; 83690; 83735; 85025; 85610; 85730; 86850; 86900; 86901; 93005; 93010; 96365; 96367; 96375; 99285-25; G0378

== ENCOUNTER 2024-07-12 07:16 | Emergency (ER) | payer OTHER ==
[2024-07-12 07:58] VITALS: BP 108/61; PULSE 100; RESP 22; TEMP 98.7; BMI 22.6
[2024-07-12] MEDS ORDERED: chlordiazePOXIDE HCL 25 MG CAPSULE ONE (08:33)
[2024-07-12] MEDS ORDERED: ONDANSETRON *ODT* 4 MG TABLET ONE (08:34)
[2024-07-12] MEDS: ONDANSETRON 4 MG TABLET PO ONE (08:57)
[2024-07-12] MEDS ORDERED: IBUPROFEN 600 MG TABLET (FP) PO ONE (09:47)
[2024-07-12] MEDS: IBUPROFEN 600 MG TABLET (FP) PO ONE (09:50)
[2024-07-12] MEDS: chlordiazePOXIDE HCL 25 MG CAPSULE PO ONE (10:00)
== END 2024-07-12 14:48 | disposition home or self-care (01) ==
LOC: JER 07:16
DX: J18.9 Pneumonia, unspecified organism (principal); R11.2 Nausea with vomiting, unspecified; R42 Dizziness and giddiness; R10.13 Epigastric pain; R06.02 Shortness of breath
CPT/HCPCS: 82962; 99283-25

== ENCOUNTER 2024-07-14 12:44 | Inpatient (IN) | payer OTHER ==
[2024-07-14 13:20] VITALS: RESP 18
[2024-07-14] MEDS ORDERED: ONDANSETRON 4 MG/2 ML VIAL ONE (14:25)
[2024-07-14] MEDS: LACTATED RINGERS SOLUTION 1000 ML INFUS.BAG IV ONE (14:29)
[2024-07-14] MEDS: ONDANSETRON 4 MG/2 ML VIAL IVPUSH ONE (14:29)
[2024-07-14 14:32] LABS: EOS % 0.6 % (0-4.5); HEMATOCRIT 23.4 % (32.4-45.2); HEMOGLOBIN 7.7 GM/dL (10.7-15.3); LYMPH % 20.7 % (8-40); MCH 28.8 pg (25.7-33.7); MCHC 32.8 g/dl (32.0-36.0); MEAN CELL VOLUME 87.6 fl (80-96); MEAN PLT VOLUME 7.9 fl (7.5-11.1); MONO % 14.4 % (3.8-10.2); NEUT % 63.3 % (42.8-82.8); PLATELET COUNT 37 10^3/uL (134-434); RBC 2.67 M/mm3 (3.60-5.2); RDW 21.7 % (11.6-15.6); WHITE BLOOD COUNT 2.8 K/mm3 (4.0-10.0)
[2024-07-14 14:37] LABS: INR 1.95 (0.83-1.09); PROTHROMBIN TIME (PATIENT) 21.3 SEC (9.7-13.0)
[2024-07-14 14:40] LABS: ACTIVATED PTT 34.3 SECONDS (25.2-36.5)
[2024-07-14 14:57] LABS: POTASSIUM 3.2 mmol/L (3.5-5.1)
[2024-07-14 15:02] LABS: BLOOD UREA NITROGEN 4.4 mg/dL (7-18); CALCIUM 7.2 mg/dL (8.5-10.1)
[2024-07-14 15:03] LABS: ALBUMIN 2.1 g/dl (3.4-5.0)
[2024-07-14 15:04] LABS: MAGNESIUM 1.5 mg/dL (1.8-2.4)
[2024-07-14 15:06] LABS: CREATININE 0.5 mg/dL (0.55-1.3); PHOSPHOROUS 1.7 mg/dL (2.5-4.9)
[2024-07-14 15:07] LABS: BILIRUBIN,TOTAL 2.6 mg/dL (0.2-1); TOT PROT 6.8 g/dl (6.4-8.2)
[2024-07-14] MEDS ORDERED: NAPH,MB-DB/K PH,MBDB POWDER PACKET ONE (15:31)
[2024-07-14] MEDS: NAPH,MB-DB/K PH,MBDB POWDER PACKET PO ONE (16:06)
[2024-07-14] MEDS: MAGNESIUM SULFATE IN WATER 2 GM/50 ML IVPB IVPB ONE (16:06)
[2024-07-14] MEDS ORDERED: ONDANSETRON 4 MG/2 ML VIAL IVPUSH PRN (17:10)
[2024-07-14] MEDS ORDERED: KCL 10 MEQ IVPB 10 MEQ/100 ML INFUS.BAG IVPB ONE (18:13)
[2024-07-14] MEDS: SODIUM CHLORIDE 1,000 ML IV SCH (18:42)
[2024-07-14] MEDS: KCL 10 MEQ IVPB 10 MEQ/100 ML INFUS.BAG IVPB ONE (18:42)
[2024-07-14] MEDS ORDERED: diazePAM CARPU-JECT 10 MG/2 ML DISP.SYRIN ONE (20:56)
[2024-07-14] MEDS: diazePAM CARPU-JECT 10 MG/2 ML DISP.SYRIN IVPUSH ONE (21:08)
[2024-07-14 21:46] LABS: POTASSIUM 3.4 mmol/L (3.5-5.1)
[2024-07-14 21:47] LABS: MAGNESIUM 1.8 mg/dL (1.8-2.4)
[2024-07-14 21:51] LABS: PHOSPHOROUS 2.1 mg/dL (2.5-4.9)
[2024-07-14] MEDS ORDERED: LACTULOSE 20 GM/30 ML UDC (FOR ORAL USE ONLY) ONE (22:43)
[2024-07-14] MEDS: LACTULOSE 20 GM/30 ML UDC (FOR ORAL USE ONLY) PO SCH (23:05)
[2024-07-14] MEDS: ACAMPROSATE CALCIUM 333 MG TABLET.DR PO SCH (23:05)
[2024-07-15 00:58] VITALS: BMI 28.8
[2024-07-15] MEDS: KCL 10 MEQ IVPB 10 MEQ/100 ML INFUS.BAG IVPB SCH (01:00)
[2024-07-15] MEDS: MAGNESIUM 1GM/D5W - 1 GM/100 ML IVPB IVPB ONE (02:00)
[2024-07-15] MEDS: LORazepam 2 MG/ML SDV VIAL IVPUSH PRN (03:47)
[2024-07-15 07:00] VITALS: BP 127/83; PULSE 110; TEMP 99.3
[2024-07-15] MEDS ORDERED: FOLIC ACID 1 MG TABLET (FP) PO SCH (10:00)
[2024-07-15] MEDS ORDERED: PANTOPRAZOLE SODIUM 40 MG VIAL IVPUSH SCH (10:00)
[2024-07-15] MEDS ORDERED: THIAMINE 100 MG TABLET PO SCH (10:00)
== END 2024-07-15 09:00 | disposition left against medical advice (07) | DRG 280 ==
LOC: JER 12:44 → JERBED 16:52 → J8W 07-15 00:37
PROVIDERS: ADMIT Internal Medicine; ATTEND Nurse Practitioner Acute Care
DX: K70.9 Alcoholic liver disease, unspecified (principal); K70.30 Alcoholic cirrhosis of liver without ascites; D61.818 Other pancytopenia; K76.82 Hepatic encephalopathy; E83.42 Hypomagnesemia; F10.129 Alcohol abuse with intoxication, unspecified; F10.139 Alcohol abuse with withdrawal, unspecified; I10 Essential (primary) hypertension; R11.0 Nausea; R11.10 Vomiting, unspecified
CPT/HCPCS: 0241U-QW; 36415; 36430; 70450-TC; 71045-TC-FY; 76705-TC; 80053; 80307; 82248; 82272; 82728; 82977; 83540; 83550; 83690; 83735; 84100; 84132; 84466; 84484; 84703; 85025; 85027; 85045; 85610; 85730; 86850; 86900; 86901; 86922; 93005; 93010; 99285-25; G0378; J0131

== ENCOUNTER 2024-07-18 15:55 | Observation (INO) | payer OTHER ==
[2024-07-18] MEDS ORDERED: ONDANSETRON *ODT* 4 MG TABLET ONE (16:24)
[2024-07-18] MEDS: ONDANSETRON *ODT* 4 MG TABLET SL ONE (16:47)
[2024-07-18 16:49] LABS: BASO % 0.4 % (0-2.0); EOS % 1.3 % (0-4.5); HEMATOCRIT 27.9 % (32.4-45.2); HEMOGLOBIN 8.9 GM/dL (10.7-15.3); LYMPH % 24.4 % (8-40); MCH 28.6 pg (25.7-33.7); MEAN CELL VOLUME 89.1 fl (80-96); MEAN PLT VOLUME 8.3 fl (7.5-11.1); MONO % 10.9 % (3.8-10.2); PLATELET COUNT 61 10^3/uL (134-434); RBC 3.13 M/mm3 (3.60-5.2); RDW 21.5 % (11.6-15.6); WHITE BLOOD COUNT 3.9 K/mm3 (4.0-10.0)
[2024-07-18 17:08] LABS: POTASSIUM 3.9 mmol/L (3.5-5.1)
[2024-07-18 17:11] LABS: ALBUMIN 2.1 g/dl (3.4-5.0); BLOOD UREA NITROGEN 9.3 mg/dL (7-18); MAGNESIUM 1.6 mg/dL (1.8-2.4)
[2024-07-18] MEDS ORDERED: THIAMINE HCL 200 MG/2 ML VIAL ONE (17:13)
[2024-07-18 17:14] LABS: CREATININE 0.6 mg/dL (0.55-1.3)
[2024-07-18] MEDS ORDERED: MULTIVITAMINS (DAILY MVI) TABLET (FP) ONE (17:14)
[2024-07-18] MEDS ORDERED: FOLIC ACID 1 MG TABLET (FP) ONE (17:14)
[2024-07-18 17:15] LABS: BILIRUBIN,TOTAL 2.7 mg/dL (0.2-1); TOT PROT 6.8 g/dl (6.4-8.2)
[2024-07-18] MEDS: MULTIVITAMINS (DAILY MVI) TABLET (FP) PO ONE (17:26)
[2024-07-18] MEDS: THIAMINE HCL 200 MG/2 ML VIAL IVPB ONE (17:26)
[2024-07-18] MEDS: FOLIC ACID 1 MG TABLET (FP) PO ONE (17:26)
[2024-07-18] MEDS ORDERED: MAGNESIUM SULFATE IN WATER 2 GM/50 ML IVPB IVPB ONE (17:49)
[2024-07-18] MEDS: MAGNESIUM SULF 50% (8.12 MEQ/2 ML-1 GM VIAL) IVPB ONE (17:58)
[2024-07-18] MEDS: MAGNESIUM 1GM/D5W - 1 GM/100 ML IVPB IVPB ONE (18:12)
[2024-07-18] MEDS ORDERED: TRIMETHOBENZAMIDE HCL 200MG/2ML INJ IM PRN (18:20)
[2024-07-18] MEDS ORDERED: LORazepam 2 MG/ML SDV VIAL IVPUSH PRN (18:30)
[2024-07-18 19:28] LABS: PHOSPHOROUS 3.5 mg/dL (2.5-4.9)
[2024-07-18] MEDS ORDERED: FAMOTIDINE 10 MG TABLET ONE (19:30)
[2024-07-18] MEDS: FOLIC ACID INJECTION - 1 MG, THIAMINE HCL 100 MG, MULTIVIT INJECTION ADULT 10 ML in SOD... IVPB ONE (19:37)
[2024-07-18] MEDS: FAMOTIDINE 10 MG TABLET PO SCH (19:38)
[2024-07-18] MEDS: RIFAXIMIN 550 MG TABLET PO SCH (21:31)
[2024-07-18 22:27] VITALS: BMI 26.5
[2024-07-18] MEDS: MELATONIN 5 MG TABLETS PO ONE (22:56)
[2024-07-19 05:42] VITALS: BP 126/70; PULSE 97; RESP 18; TEMP 98.2
[2024-07-19] MEDS: ACETAMINOPHEN 325 MG TABLET (FP) PO ONE (08:03)
[2024-07-19 08:30] LABS: INR 1.85 (0.83-1.09); PROTHROMBIN TIME (PATIENT) 20.3 SEC (9.7-13.0)
[2024-07-19 08:32] LABS: BASO % 0.6 % (0-2.0); EOS % 2.9 % (0-4.5); HEMATOCRIT 24.4 % (32.4-45.2); HEMOGLOBIN 7.9 GM/dL (10.7-15.3); LYMPH % 22.3 % (8-40); MCH 29.9 pg (25.7-33.7); MCHC 32.5 g/dl (32.0-36.0); MEAN CELL VOLUME 92.1 fl (80-96); MEAN PLT VOLUME 8.1 fl (7.5-11.1); MONO % 11.9 % (3.8-10.2); NEUT % 62.3 % (42.8-82.8); PLATELET COUNT 50 10^3/uL (134-434); RBC 2.65 M/mm3 (3.60-5.2); RDW 21.6 % (11.6-15.6); WHITE BLOOD COUNT 2.9 K/mm3 (4.0-10.0)
[2024-07-19 08:50] LABS: POTASSIUM 3.7 mmol/L (3.5-5.1)
[2024-07-19 08:58] LABS: BLOOD UREA NITROGEN 6.5 mg/dL (7-18); CALCIUM 7.4 mg/dL (8.5-10.1)
[2024-07-19 09:00] LABS: BILIRUBIN,TOTAL 2.4 mg/dL (0.2-1); CREATININE 0.5 mg/dL (0.55-1.3); MAGNESIUM 1.5 mg/dL (1.8-2.4); TOT PROT 6.5 g/dl (6.4-8.2)
[2024-07-19 09:02] LABS: PHOSPHOROUS 3.5 mg/dL (2.5-4.9)
[2024-07-19] MEDS ORDERED: PANTOPRAZOLE SODIUM 40 MG VIAL IVPUSH SCH (10:00)
[2024-07-19] MEDS ORDERED: FOLIC ACID 1 MG TABLET (FP) PO SCH (10:00)
[2024-07-19] MEDS ORDERED: THIAMINE 100 MG TABLET PO SCH (10:00)
[2024-07-19] MEDS ORDERED: SPIRONOLACTONE 25 MG TABLET PO SCH (10:00)
== END 2024-07-19 08:56 | disposition left against medical advice (07) ==
LOC: JER 15:55 → JERBED 18:03 → J5S 20:41
PROVIDERS: ADMIT Student in an Organized Health Care Education/Training Program; ATTEND Internal Medicine
PROC: 3E033GC Introduction of Other Therapeutic Substance into Peripheral Vein, Percutaneous Approach (ICD-10-PCS; principal; 2024-07-18)
DX: F10.99 Alcohol use, unspecified with unspecified alcohol-induced disorder (principal); F10.939 Alcohol use, unspecified with withdrawal, unspecified; R73.03 Prediabetes; K27.9 Peptic ulcer, site unspecified, unspecified as acute or chronic, without hemorrhage or perforation; K70.30 Alcoholic cirrhosis of liver without ascites; K76.82 Hepatic encephalopathy; D69.6 Thrombocytopenia, unspecified; D64.9 Anemia, unspecified; I85.00 Esophageal varices without bleeding; D61.818 Other pancytopenia; I45.81 Long QT syndrome
CPT/HCPCS: 36415; 80053; 80307; 82248; 82962; 83690; 83735; 84100; 85025; 85610; 93005; 93010; 96365; 96375; 99291; G0378

== ENCOUNTER 2024-07-20 12:46 | Emergency (ER) | payer OTHER ==
[2024-07-20 13:03] VITALS: BP 112/61; PULSE 97; RESP 18; TEMP 97.7; BMI 24.0
[2024-07-20] MEDS ORDERED: FAMOTIDINE 20 MG/50 ML IVPB 20 MG/50 ML MG IVPB ONE ×2 (13:12→13:35)
[2024-07-20] MEDS ORDERED: MAG HYDROX/AL HYDROX/SIMETH 30 ML UNIT-DOSE CUP ONE (13:35)
[2024-07-20] MEDS: MAG HYDROX/AL HYDROX/SIMETH 30 ML UNIT-DOSE CUP PO ONE (13:49)
[2024-07-20] MEDS: FAMOTIDINE 20 MG/50 ML IVPB 20 MG/50 ML MG IVPB ONE (13:49)
[2024-07-20 13:57] LABS: EOS % 3.2 % (0-4.5); HEMATOCRIT 26.9 % (32.4-45.2); HEMOGLOBIN 8.7 GM/dL (10.7-15.3); LYMPH % 21.4 % (8-40); MCH 28.5 pg (25.7-33.7); MCHC 32.3 g/dl (32.0-36.0); MEAN CELL VOLUME 88.3 fl (80-96); MEAN PLT VOLUME 7.5 fl (7.5-11.1); MONO % 12.6 % (3.8-10.2); NEUT % 61.8 % (42.8-82.8); PLATELET COUNT 44 10^3/uL (134-434); RBC 3.04 M/mm3 (3.60-5.2); RDW 21.4 % (11.6-15.6); WHITE BLOOD COUNT 2.8 K/mm3 (4.0-10.0)
[2024-07-20 14:20] LABS: POTASSIUM 3.5 mmol/L (3.5-5.1)
[2024-07-20 14:22] LABS: CALCIUM 7.5 mg/dL (8.5-10.1)
[2024-07-20 14:23] LABS: ALBUMIN 2.2 g/dl (3.4-5.0); BLOOD UREA NITROGEN 4.2 mg/dL (7-18); MAGNESIUM 1.3 mg/dL (1.8-2.4)
[2024-07-20 14:25] LABS: CREATININE 0.6 mg/dL (0.55-1.3); PHOSPHOROUS 2.4 mg/dL (2.5-4.9)
[2024-07-20 14:27] LABS: TOT PROT 6.8 g/dl (6.4-8.2)
[2024-07-20 14:37] LABS: BILIRUBIN,TOTAL 3.4 mg/dL (0.2-1)
[2024-07-20] MEDS: MAGNESIUM SULFATE IN WATER 2 GM/50 ML IVPB IVPB ONE (14:44)
[2024-07-20] MEDS ORDERED: MAGNESIUM SULFATE IN WATER 2 GM/50 ML IVPB IVPB ONE (14:45)
== END 2024-07-20 16:10 | disposition left against medical advice (07) ==
LOC: JER 12:46
PROC: 3E033GC Introduction of Other Therapeutic Substance into Peripheral Vein, Percutaneous Approach (ICD-10-PCS; principal; 2024-07-20)
PROC: 3E033GC Introduction of Other Therapeutic Substance into Peripheral Vein, Percutaneous Approach (ICD-10-PCS; 2024-07-20)
DX: F10.10 Alcohol abuse, uncomplicated (principal); Y90.8 Blood alcohol level of 240 mg/100 ml or more; R11.2 Nausea with vomiting, unspecified; R10.31 Right lower quadrant pain
CPT/HCPCS: 36415; 80053; 80307; 82140; 83690; 83735; 84100; 85025; 93005; 93010; 99284-25

== ENCOUNTER 2024-07-21 21:31 | Emergency (ER) | payer OTHER ==
[2024-07-21 21:35] VITALS: BMI 26.4
[2024-07-21] MEDS ORDERED: ONDANSETRON *ODT* 4 MG TABLET ONE (22:34)
[2024-07-21] MEDS ORDERED: ACETAMINOPHEN 325 MG TABLET (FP) ONE (22:34)
[2024-07-21] MEDS: ACETAMINOPHEN 500 MG TABLET (FP) PO ONE (22:48)
[2024-07-21] MEDS: ONDANSETRON *ODT* 4 MG TABLET SL ONE (22:48)
[2024-07-21] MEDS ORDERED: FAMOTIDINE 20 MG TABLET ONE (23:11)
[2024-07-21] MEDS: FAMOTIDINE 20 MG TABLET PO ONE (23:13)
[2024-07-22 03:14] VITALS: BP 118/76; PULSE 82; RESP 17; TEMP 97.6
== END 2024-07-22 06:21 | disposition home or self-care (01) ==
LOC: JER 21:31
DX: R10.13 Epigastric pain (principal); R11.2 Nausea with vomiting, unspecified; R51.9 Headache, unspecified; H53.8 Other visual disturbances; R53.1 Weakness; F10.90 Alcohol use, unspecified, uncomplicated
CPT/HCPCS: 99283-25; Q0162

== ENCOUNTER 2024-08-08 03:58 | Emergency (ER) | payer OTHER ==
[2024-08-08 04:13] VITALS: BP 106/76; PULSE 78; RESP 16; TEMP 97.7; BMI 24.9
[2024-08-08] MEDS ORDERED: FAMOTIDINE 20 MG TABLET ONE (04:14)
[2024-08-08] MEDS ORDERED: MAG HYDROX/AL HYDROX/SIMETH 30 ML UNIT-DOSE CUP ONE (04:14)
[2024-08-08] MEDS ORDERED: ONDANSETRON *ODT* 4 MG TABLET ONE (04:14)
[2024-08-08] MEDS: FAMOTIDINE 20 MG TABLET PO ONE (04:16)
[2024-08-08] MEDS: MAG HYDROX/AL HYDROX/SIMETH 30 ML UNIT-DOSE CUP PO ONE (04:16)
[2024-08-08] MEDS: ONDANSETRON *ODT* 4 MG TABLET SL ONE (04:16)
== END 2024-08-08 04:32 | disposition home or self-care (01) ==
LOC: JER 03:58
DX: R11.2 Nausea with vomiting, unspecified (principal); R10.9 Unspecified abdominal pain
CPT/HCPCS: 99283-25; Q0162

== ENCOUNTER 2024-08-17 21:16 | Emergency (ER) | payer OTHER ==
[2024-08-17 21:23] VITALS: BP 107/65; PULSE 79; RESP 16; TEMP 97.8; BMI 30.2
== END 2024-08-18 00:27 | disposition home or self-care (01) ==
LOC: JER 21:16
DX: F10.129 Alcohol abuse with intoxication, unspecified (principal); M25.562 Pain in left knee
CPT/HCPCS: 99283-25

== ENCOUNTER 2024-08-27 16:26 | Observation (INO) | payer OTHER ==
[2024-08-27 16:38] VITALS: BMI 26.4
[2024-08-27] MEDS ORDERED: DALBAVANCIN HCL 500 MG VIAL (RESTRICTED TO ID ONLY) IVPB ONE (17:44)
[2024-08-27 19:45] LABS: BASOPHILS # 0.03 x10^3/uL (0.01-0.08)
[2024-08-27 19:47] LABS: ABSOLUTE IMMATURE GRANULOCYTES 0.04 x10^3/uL (0.0-0.031); HEMATOCRIT 23.3 % (34.1-44.9); HEMOGLOBIN 7.6 g/dL (11.2-15.7); MCHC 32.6 g/dl (32.2-35.5); MEAN CELL VOLUME 91.4 fl (79.4-94.8); MEAN PLT VOLUME 11.5 fl (9.4-12.3); MONOCYTE # 0.56 x10^3/uL (0.24-0.86); MONOCYTE % 16.9 % (4.7-12.5); PLATELET COUNT 73 x10^3/uL (182-369); RDW 24.8 % (12.2-17.1)
[2024-08-27 20:23] LABS: POTASSIUM 5.3 mmol/L (3.5-5.1)
[2024-08-27 20:26] LABS: ALBUMIN 1.8 g/dl (3.4-5.0); BLOOD UREA NITROGEN 10.9 mg/dL (7-18); CALCIUM 7.7 mg/dL (8.5-10.1)
[2024-08-27 20:29] LABS: CREATININE 0.7 mg/dL (0.55-1.3)
[2024-08-27 20:31] LABS: BILIRUBIN,TOTAL 4.8 mg/dL (0.2-1)
[2024-08-27] MEDS: DALBAVANCIN HCL 1,500 MG in DEXTROSE 5%-WATER - 500 ML IVPB ONE (22:14)
[2024-08-28] MEDS ORDERED: LORazepam 2 MG/ML SDV VIAL IVPUSH PRN (03:01)
[2024-08-28 05:54] LABS: HEMATOCRIT 25.3 % (34.1-44.9); MEAN CELL VOLUME 91.7 fl (79.4-94.8); RDW 23.9 % (12.2-17.1)
[2024-08-28 05:56] LABS: HEMOGLOBIN 7.9 g/dL (11.2-15.7); MCHC 31.2 g/dl (32.2-35.5); MEAN PLT VOLUME 9.8 fl (9.4-12.3); PLATELET COUNT 69 x10^3/uL (182-369)
[2024-08-28 06:06] LABS: INR 1.95 (0.83-1.09); PROTHROMBIN TIME (PATIENT) 21.4 SEC (9.7-13.0)
[2024-08-28 06:11] LABS: POTASSIUM 4.3 mmol/L (3.5-5.1)
[2024-08-28 06:14] VITALS: TEMP 97.6
[2024-08-28 06:14] LABS: ALBUMIN 1.8 g/dl (3.4-5.0); BLOOD UREA NITROGEN 9.4 mg/dL (7-18); CALCIUM 7.8 mg/dL (8.5-10.1); MAGNESIUM 1.5 mg/dL (1.8-2.4)
[2024-08-28] MEDS: THIAMINE HCL 200 MG/2 ML VIAL IVPB SCH (06:14)
[2024-08-28 06:17] LABS: CREATININE 0.6 mg/dL (0.55-1.3); PHOSPHOROUS 3.7 mg/dL (2.5-4.9)
[2024-08-28 06:19] LABS: BILIRUBIN,TOTAL 4.7 mg/dL (0.2-1); TOT PROT 6.8 g/dl (6.4-8.2)
[2024-08-28 08:00] VITALS: BP 132/81; PULSE 94; RESP 18
[2024-08-28] MEDS ORDERED: FOLIC ACID 1 MG TABLET (FP) PO SCH (10:00)
[2024-08-28] MEDS ORDERED: PANTOPRAZOLE SODIUM 40 MG VIAL IVPUSH SCH (10:00)
[2024-08-28] MEDS ORDERED: THIAMINE HCL 200 MG/2 ML VIAL IVPB SCH (10:00)
[2024-08-31] MEDS ORDERED: THIAMINE HCL 200 MG/2 ML VIAL IVPB SCH (10:00)
== END 2024-08-28 08:11 | disposition left against medical advice (07) ==
LOC: JER 16:26 → JERBED 21:34
PROVIDERS: ADMIT Hospitalist; ATTEND Nurse Practitioner Family
DX: S80.02XA Contusion of left knee, initial encounter (principal); W18.39XA Other fall on same level, initial encounter; Y93.9 Activity, unspecified; Y92.9 Unspecified place or not applicable; K74.60 Unspecified cirrhosis of liver; F10.90 Alcohol use, unspecified, uncomplicated; K76.82 Hepatic encephalopathy; I85.00 Esophageal varices without bleeding; J98.4 Other disorders of lung
CPT/HCPCS: 36415; 73562-TC-LT-FY; 80053; 82140; 83735; 84100; 85025; 85027; 85610; 87040; 96365; 99285-25; G0378; J0875

== ENCOUNTER 2024-08-29 16:12 | Emergency (ER) | payer OTHER ==
[2024-08-29 16:32] VITALS: BP 112/68; PULSE 108; RESP 18; BMI 26.4
== END 2024-08-29 19:07 | disposition left against medical advice (07) ==
LOC: JER 16:12
DX: S80.02XA Contusion of left knee, initial encounter (principal); W18.30XA Fall on same level, unspecified, initial encounter
CPT/HCPCS: 99283-25

== ENCOUNTER 2024-08-30 15:36 | Inpatient (IN) | payer OTHER ==
[2024-08-30 15:50] VITALS: BMI 25.3
[2024-08-30 18:35] LABS: ABSOLUTE IMMATURE GRANULOCYTES 0.02 x10^3/uL (0.0-0.031); BASOPHILS # 0.05 x10^3/uL (0.01-0.08); EOSINOPHIL % 3.9 % (0.7-5.8); EOSINOPHILS # 0.23 x10^3/uL (0.04-0.36); HEMATOCRIT 23.9 % (34.1-44.9); HEMOGLOBIN 7.5 g/dL (11.2-15.7); MCHC 31.4 g/dl (32.2-35.5); MEAN PLT VOLUME 9.8 fl (9.4-12.3); MONOCYTE # 0.68 x10^3/uL (0.24-0.86); MONOCYTE % 11.4 % (4.7-12.5); PLATELET COUNT 67 x10^3/uL (182-369); RDW 23.6 % (12.2-17.1)
[2024-08-30 18:47] LABS: CHLORIDE 102 mmol/L (98-107); SODIUM 133 mmol/L (136-145)
[2024-08-30 18:49] LABS: ALBUMIN 1.8 g/dl (3.4-5.0); CALCIUM 8.1 mg/dL (8.5-10.1)
[2024-08-30 18:50] LABS: BLOOD UREA NITROGEN 13.2 mg/dL (7-18); CO2 25 mmol/L (21-32); GLUCOSE,RANDOM 120 mg/dL (74-106)
[2024-08-30 18:53] LABS: SGOT/AST 225 U/L (15-37)
[2024-08-30 18:54] LABS: BILIRUBIN,TOTAL 4.7 mg/dL (0.2-1); TOT PROT 7.3 g/dl (6.4-8.2)
[2024-08-30 18:55] LABS: ALK PHOS 248 U/L (45-117); ANION GAP 5 mmol/L (4-13); INR 1.87 (0.83-1.09); PROTHROMBIN TIME (PATIENT) 20.4 SEC (9.7-13.0); SGPT/ALT 46 U/L (13-61)
[2024-08-30 18:57] LABS: ACTIVATED PTT 32.1 SECONDS (25.2-36.5)
[2024-08-30] MEDS: SODIUM CHLORIDE 1,000 ML IV STA (19:39)
[2024-08-30] MEDS ORDERED: MORPHINE SULFATE 2 MG/ML SYRINGE ONE (19:41)
[2024-08-30] MEDS: morphine CARPU-JECT 2 MG/1 ML DISP.SYRIN IVPUSH ONE (19:43)
[2024-08-30] MEDS ORDERED: THIAMINE HCL 200 MG/2 ML VIAL ONE (19:45)
[2024-08-30] MEDS: THIAMINE HCL 200 MG/2 ML VIAL IVPB ONE (19:49)
[2024-08-30] MEDS ORDERED: ACETAMINOPHEN INJECTION 100 ML ONE (21:46)
[2024-08-30] MEDS: ACETAMINOPHEN 1000 MG/100 ML BAG IVPB ONE (22:07)
[2024-08-30] MEDS ORDERED: ONDANSETRON 4 MG/2 ML VIAL ONE (22:09)
[2024-08-30] MEDS: ONDANSETRON 4 MG/2 ML VIAL IVPUSH ONE (22:11)
[2024-08-30] MEDS ORDERED: FAMOTIDINE 20 MG/50 ML IVPB 20 MG/50 ML MG IVPB ONE (22:12)
[2024-08-30] MEDS: FAMOTIDINE 20 MG/50 ML IVPB 20 MG/50 ML MG IVPB ONE (22:17)
[2024-08-30 22:37] LABS: CHLORIDE 112 mmol/L (98-107); POTASSIUM 3.8 mmol/L (3.5-5.1); SODIUM 141 mmol/L (136-145)
[2024-08-30 22:39] LABS: ANION GAP 7 mmol/L (4-13); BLOOD UREA NITROGEN 10.7 mg/dL (7-18); CO2 22 mmol/L (21-32); GLUCOSE,RANDOM 83 mg/dL (74-106)
[2024-08-30 22:40] LABS: CALCIUM 6.9 mg/dL (8.5-10.1)
[2024-08-30 22:42] LABS: CREATININE 0.5 mg/dL (0.55-1.3)
[2024-08-31] MEDS ORDERED: LORazepam 2 MG/ML SDV VIAL IVPUSH PRN ×2 (00:18→02:09)
[2024-08-31] MEDS ORDERED: LACTULOSE 20 GM/30 ML UDC (FOR ORAL USE ONLY) PO PRN (00:33)
[2024-08-31] MEDS: MELATONIN 5 MG TABLETS PO PRN (02:31)
[2024-08-31] MEDS: THIAMINE HCL 200 MG/2 ML VIAL IVPB SCH (05:58)
[2024-08-31] MEDS: LACTULOSE 20 GM/30 ML UDC (FOR ORAL USE ONLY) PO SCH (05:59)
[2024-08-31] MEDS: KETOROLAC TROMETHAMINE 15 MG/ML VIAL IVPUSH ONE (06:31)
[2024-08-31 08:47] LABS: HEMATOCRIT 23.7 % (34.1-44.9); HEMOGLOBIN 7.3 g/dL (11.2-15.7); MCHC 30.8 g/dl (32.2-35.5); MEAN PLT VOLUME 9.7 fl (9.4-12.3); PLATELET COUNT 59 x10^3/uL (182-369); RDW 23.8 % (12.2-17.1)
[2024-08-31 08:59] LABS: INR 1.85 (0.83-1.09); PROTHROMBIN TIME (PATIENT) 20.4 SEC (9.7-13.0)
[2024-08-31 09:20] LABS: POTASSIUM 4.3 mmol/L (3.5-5.1)
[2024-08-31 09:46] LABS: ALBUMIN 1.8 g/dl (3.4-5.0)
[2024-08-31 09:47] LABS: BLOOD UREA NITROGEN 12.3 mg/dL (7-18); CALCIUM 8.2 mg/dL (8.5-10.1)
[2024-08-31 09:50] LABS: BILIRUBIN,DIRECT 2.5 mg/dL (0.0-0.2); CREATININE 0.9 mg/dL (0.55-1.3)
[2024-08-31 09:52] LABS: BILIRUBIN,TOTAL 4.1 mg/dL (0.2-1); TOT PROT 6.6 g/dl (6.4-8.2)
[2024-08-31 10:06] VITALS: BP 126/88; PULSE 99; RESP 20; TEMP 98.3
[2024-08-31] MEDS: RIFAXIMIN 550 MG TABLET PO SCH (10:06)
[2024-08-31] MEDS: SPIRONOLACTONE 25 MG TABLET PO SCH (10:07)
[2024-08-31] MEDS: FERROUS SO4 325 MG TABLET (FP) PO SCH (10:07)
[2024-08-31] MEDS: PHYTONADIONE 5 MG TABLET PO SCH (10:07)
[2024-08-31] MEDS: FOLIC ACID 1 MG TABLET (FP) PO SCH (10:07)
[2024-08-31] MEDS: PANTOPRAZOLE SODIUM 40 MG VIAL IVPUSH SCH (10:07)
[2024-08-31] MEDS: FUROSEMIDE 20 MG TABLET (FP) PO SCH (10:07)
[2024-09-04] MEDS ORDERED: THIAMINE HCL 200 MG/2 ML VIAL IVPB SCH (10:00)
== END 2024-08-31 11:05 | disposition home or self-care (01) | DRG 351 ==
LOC: JER 15:36 → JERBED 22:02 → OBSVTOIN 08-31 00:04 → J8W 08-31 02:06
PROVIDERS: ADMIT Internal Medicine; ATTEND Registered Nurse
DX: M25.562 Pain in left knee (principal); D69.6 Thrombocytopenia, unspecified; D64.9 Anemia, unspecified; R74.01 Elevation of levels of liver transaminase levels; K70.10 Alcoholic hepatitis without ascites; F10.20 Alcohol dependence, uncomplicated; K70.30 Alcoholic cirrhosis of liver without ascites; M25.462 Effusion, left knee
CPT/HCPCS: 36415; 80048; 80053; 82248; 83735; 84100; 85025; 85027; 85610; 85730; 93970-TC; 97116-GP; 97161-GP; 99285-25; G0378; J0131; J1756

== ENCOUNTER 2024-09-18 17:40 | Emergency (ER) | payer OTHER ==
[2024-09-18 17:48] VITALS: BP 136/74; PULSE 109; RESP 20; TEMP 98; BMI 28.3
[2024-09-18 20:22] LABS: VENOUS BASE EXCESS -0.9 mmol/L (-2-2); VENOUS O2 SATURATION 69.2 % (70-80); VENOUS PCO2 43.5 mmHg (38-52); VENOUS PH 7.367 (7.310-7.410)
[2024-09-18 20:25] LABS: INR 1.84 (0.83-1.09); PROTHROMBIN TIME (PATIENT) 20.2 SEC (9.7-13.0)
[2024-09-18 20:32] LABS: ABSOLUTE IMMATURE GRANULOCYTES 0.04 x10^3/uL (0.0-0.031); BASOPHILS # 0.02 x10^3/uL (0.01-0.08); EOSINOPHIL % 3.1 % (0.7-5.8); EOSINOPHILS # 0.12 x10^3/uL (0.04-0.36); HEMATOCRIT 23.8 % (34.1-44.9); HEMOGLOBIN 8.1 g/dL (11.2-15.7); MEAN CELL VOLUME 107.7 fl (79.4-94.8); MONOCYTE # 0.38 x10^3/uL (0.24-0.86); MONOCYTE % 9.7 % (4.7-12.5); RDW 30.9 % (12.2-17.1)
[2024-09-18 20:37] LABS: PLATELET COUNT 33 x10^3/uL (182-369)
[2024-09-18 21:02] LABS: POTASSIUM 3.9 mmol/L (3.5-5.1)
[2024-09-18 21:12] LABS: ALBUMIN 1.9 g/dl (3.4-5.0); BLOOD UREA NITROGEN 10.7 mg/dL (7-18); CALCIUM 7.8 mg/dL (8.5-10.1)
[2024-09-18 21:15] LABS: CREATININE 0.7 mg/dL (0.55-1.3)
[2024-09-18 21:17] LABS: TOT PROT 7.7 g/dl (6.4-8.2)
[2024-09-18] MEDS: CEFAZOLIN 1 GM in DEXTROSE 5%-WATER - 50 ML IVPB ONE (22:35)
[2024-09-18] MEDS: VANCOMYCIN 1,000 MG in DEXTROSE 5%-WATER - 250 ML IVPB ONE (22:35)
[2024-09-18] MEDS: DALBAVANCIN HCL 1,500 MG in DEXTROSE 5%-WATER - 500 ML IVPB ONE (22:41)
== END 2024-09-19 00:25 | disposition left against medical advice (07) ==
LOC: JER 17:40
DX: M25.562 Pain in left knee (principal); M25.462 Effusion, left knee; R60.0 Localized edema; R06.02 Shortness of breath; R17 Unspecified jaundice; F10.129 Alcohol abuse with intoxication, unspecified; Y90.9 Presence of alcohol in blood, level not specified
CPT/HCPCS: 0241U-QW; 36415; 71045-TC-FY; 73560-TC-LT-FY; 80053; 82803; 83605; 84484; 85025; 85610; 85730; 86850; 86900; 86901; 87040; 93005; 93010; 93971-TC; 99285-25

== ENCOUNTER 2024-09-20 18:12 | Emergency (ER) | payer OTHER ==
[2024-09-20 18:20] VITALS: BP 127/75; PULSE 104; RESP 16; TEMP 98; BMI 45.0
[2024-09-20] MEDS ORDERED: LIDOCAINE 4% PATCH TP ONE (19:40)
[2024-09-20] MEDS: LIDOCAINE 4% PATCH TP ONE (19:44)
[2024-09-20] MEDS ORDERED: LIDOCAINE PATCH REMOVAL MC SCH (22:00)
== END 2024-09-20 23:40 | disposition home or self-care (01) ==
LOC: JER 18:12
DX: M25.562 Pain in left knee (principal); M25.462 Effusion, left knee; F10.10 Alcohol abuse, uncomplicated; R17 Unspecified jaundice; R00.0 Tachycardia, unspecified
CPT/HCPCS: 93005; 93010; 99283-25

== ENCOUNTER 2024-09-21 18:33 | Emergency (ER) | payer OTHER ==
[2024-09-21 18:54] VITALS: PULSE 107; TEMP 98.8
[2024-09-21 19:17] VITALS: BP 110/70; BMI 37.3
== END 2024-09-21 21:06 | disposition left against medical advice (07) ==
LOC: JER 18:33
DX: M25.562 Pain in left knee (principal); G89.29 Other chronic pain
CPT/HCPCS: 99282-25

== ENCOUNTER 2024-09-21 23:03 | Emergency (ER) | payer OTHER ==
[2024-09-21 23:07] VITALS: BP 111/69; PULSE 92; RESP 18; TEMP 97.6; BMI 29.0
[2024-09-22] MEDS ORDERED: KETOROLAC TROMETHAMINE 30 MG/1 ML VIAL ONE (00:09)
[2024-09-22] MEDS: KETOROLAC TROMETHAMINE 30 MG/1 ML VIAL IM ONE (00:12)
== END 2024-09-22 08:37 | disposition home or self-care (01) ==
LOC: JER 23:03
PROC: 3E0233Z Introduction of Anti-inflammatory into Muscle, Percutaneous Approach (ICD-10-PCS; principal; 2024-09-21)
DX: M25.562 Pain in left knee (principal); G89.29 Other chronic pain
CPT/HCPCS: 99284-25

== ENCOUNTER 2024-09-24 00:50 | Emergency (ER) | payer OTHER ==
[2024-09-24 01:26] VITALS: TEMP 98.4; BMI 29.0
[2024-09-24] MEDS ORDERED: FAMOTIDINE 20 MG TABLET ONE (01:34)
[2024-09-24] MEDS: FAMOTIDINE 20 MG TABLET PO ONE (01:39)
[2024-09-24 05:22] VITALS: BP 112/64; PULSE 97; RESP 14
== END 2024-09-24 06:46 | disposition home or self-care (01) ==
LOC: JER 00:50
DX: K92.0 Hematemesis (principal)
CPT/HCPCS: 99283-25

== ENCOUNTER 2024-09-26 10:45 | Inpatient (IN) | payer OTHER ==
[2024-09-26 11:27] VITALS: TEMP 97.4; BMI 23.9
[2024-09-26] MEDS ORDERED: THIAMINE HCL 200 MG/2 ML VIAL ONE (12:01)
[2024-09-26] MEDS: THIAMINE HCL 200 MG/2 ML VIAL IVPB ONE (12:25)
[2024-09-26 12:27] VITALS: RESP 14
[2024-09-26 12:39] LABS: INR 1.98 (0.83-1.09); PROTHROMBIN TIME (PATIENT) 21.8 SEC (9.7-13.0)
[2024-09-26 12:42] LABS: ACTIVATED PTT 35.9 SECONDS (25.2-36.5)
[2024-09-26 12:51] LABS: CHLORIDE 107 mmol/L (98-107); SODIUM 136 mmol/L (136-145)
[2024-09-26 12:53] LABS: CALCIUM 8.1 mg/dL (8.5-10.1)
[2024-09-26 12:54] LABS: ALBUMIN 1.9 g/dl (3.4-5.0); BLOOD UREA NITROGEN 9.3 mg/dL (7-18); CO2 24 mmol/L (21-32); GLUCOSE,RANDOM 74 mg/dL (74-106); MAGNESIUM 1.9 mg/dL (1.8-2.4)
[2024-09-26 12:57] LABS: CREATININE 0.9 mg/dL (0.55-1.3); SGOT/AST 297 U/L (15-37)
[2024-09-26 12:58] LABS: BILIRUBIN,TOTAL 5.6 mg/dL (0.2-1)
[2024-09-26 12:59] LABS: TOT PROT 7.9 g/dl (6.4-8.2)
[2024-09-26 13:00] LABS: ALK PHOS 128 U/L (45-117)
[2024-09-26 13:04] LABS: ANION GAP 6 mmol/L (4-13); POTASSIUM 8.8 mmol/L (3.5-5.1); SGPT/ALT 50 U/L (13-61)
[2024-09-26 13:50] LABS: ABSOLUTE IMMATURE GRANULOCYTES 0.05 x10^3/uL (0.0-0.031); BASOPHILS # 0.03 x10^3/uL (0.01-0.08); EOSINOPHIL % 0.6 % (0.7-5.8); EOSINOPHILS # 0.03 x10^3/uL (0.04-0.36); HEMATOCRIT 25.7 % (34.1-44.9); HEMOGLOBIN 7.9 g/dL (11.2-15.7); MCHC 30.7 g/dl (32.2-35.5); MEAN CELL VOLUME 112.2 fl (79.4-94.8); MONOCYTE # 0.33 x10^3/uL (0.24-0.86); PLATELET COUNT 65 x10^3/uL (182-369); RDW 29.4 % (12.2-17.1)
[2024-09-26] MEDS ORDERED: PANTOPRAZOLE SODIUM 40 MG VIAL ONE (14:19)
[2024-09-26] MEDS: PANTOPRAZOLE SODIUM 40 MG VIAL IVPUSH ONE (14:31)
[2024-09-26 15:04] LABS: BLOOD UREA NITROGEN 9.7 mg/dL (7-18)
[2024-09-26 15:06] LABS: CALCIUM 7.9 mg/dL (8.5-10.1)
[2024-09-26 15:08] LABS: CREATININE 0.6 mg/dL (0.55-1.3)
[2024-09-26 15:33] VITALS: BP 102/52; PULSE 108
[2024-09-26] MEDS ORDERED: ONDANSETRON 4 MG/2 ML VIAL IVPUSH PRN (15:34)
[2024-09-26] MEDS ORDERED: LORazepam 2 MG/ML SDV VIAL IVPUSH PRN (15:58)
[2024-09-26] MEDS ORDERED: CEFAZOLIN 1 GM/D5W 1 GM/50 ML BAG ONE (16:10)
[2024-09-26] MEDS: CEFAZOLIN 1 GM/D5W 1 GM/50 ML BAG IVPB SCH (16:49)
[2024-09-26] MEDS ORDERED: PANTOPRAZOLE SODIUM 40 MG VIAL IVPUSH SCH (22:00)
[2024-09-27] MEDS ORDERED: THIAMINE HCL 200 MG/2 ML VIAL IVPB SCH (10:00)
[2024-09-27] MEDS ORDERED: FOLIC ACID 5 MG/1 ML SQ SCH (10:00)
== END 2024-09-26 18:36 | disposition left against medical advice (07) | DRG 242 ==
LOC: JER 10:45 → JERBED 15:08
PROVIDERS: ADMIT Student in an Organized Health Care Education/Training Program; ATTEND Student in an Organized Health Care Education/Training Program
DX: I85.11 Secondary esophageal varices with bleeding (principal); D61.818 Other pancytopenia; K92.0 Hematemesis; L03.116 Cellulitis of left lower limb; D73.1 Hypersplenism; E86.0 Dehydration; Z68.24 Body mass index [BMI] 24.0-24.9, adult; E46 Unspecified protein-calorie malnutrition; E80.6 Other disorders of bilirubin metabolism; K70.30 Alcoholic cirrhosis of liver without ascites; R94.5 Abnormal results of liver function studies; R73.03 Prediabetes; R00.0 Tachycardia, unspecified; Z87.11 Personal history of peptic ulcer disease
CPT/HCPCS: 36415; 71045-TC-FY; 80048; 80053; 80307; 83690; 83735; 84484; 85025; 85610; 85651; 85730; 86140; 86850; 86900; 86901; 93005; 93010; 93970-TC; 99285-25

== ENCOUNTER 2024-10-11 15:54 | Emergency (ER) | payer OTHER ==
[2024-10-11 16:45] VITALS: BMI 26.6
[2024-10-11 16:51] VITALS: BP 116/62; PULSE 103; RESP 18; TEMP 98.7
[2024-10-11] MEDS ORDERED: KETOROLAC TROMETHAMINE 15 MG/ML VIAL ONE (17:17)
[2024-10-11] MEDS: KETOROLAC TROMETHAMINE 15 MG/ML VIAL IVPUSH ONE (17:30)
[2024-10-11 17:51] LABS: ABSOLUTE IMMATURE GRANULOCYTES 0.05 x10^3/uL (0.0-0.031); BASOPHILS # 0.01 x10^3/uL (0.01-0.08); EOSINOPHIL % 0.1 % (0.7-5.8); EOSINOPHILS # 0.01 x10^3/uL (0.04-0.36); HEMATOCRIT 23.1 % (34.1-44.9); HEMOGLOBIN 7.5 g/dL (11.2-15.7); MCHC 32.5 g/dl (32.2-35.5); MEAN CELL VOLUME 106.5 fl (79.4-94.8); MEAN PLT VOLUME 11.5 fl (9.4-12.3); MONOCYTE # 0.38 x10^3/uL (0.24-0.86); MONOCYTE % 4.7 % (4.7-12.5); PLATELET COUNT 71 x10^3/uL (182-369); RDW 21.8 % (12.2-17.1)
[2024-10-11 17:59] LABS: INR 2.23 (0.83-1.09); PROTHROMBIN TIME (PATIENT) 24.5 SEC (9.7-13.0)
[2024-10-11 18:11] LABS: POTASSIUM 4.2 mmol/L (3.5-5.1)
[2024-10-11 18:13] LABS: CALCIUM 9.1 mg/dL (8.5-10.1)
[2024-10-11 18:14] LABS: ALBUMIN 1.8 g/dl (3.4-5.0); BLOOD UREA NITROGEN 22.4 mg/dL (7-18); MAGNESIUM 1.5 mg/dL (1.8-2.4)
[2024-10-11 18:17] LABS: CREATININE 0.8 mg/dL (0.55-1.3); PHOSPHOROUS 2.7 mg/dL (2.5-4.9)
[2024-10-11 18:19] LABS: TOT PROT 6.4 g/dl (6.4-8.2)
== END 2024-10-11 19:37 | disposition left against medical advice (07) ==
LOC: JER 15:54
PROC: 3E0333Z Introduction of Anti-inflammatory into Peripheral Vein, Percutaneous Approach (ICD-10-PCS; principal; 2024-10-11)
DX: S90.01XA Contusion of right ankle, initial encounter (principal); M79.604 Pain in right leg; M79.89 Other specified soft tissue disorders; R00.0 Tachycardia, unspecified; F10.129 Alcohol abuse with intoxication, unspecified; Y90.9 Presence of alcohol in blood, level not specified; K70.31 Alcoholic cirrhosis of liver with ascites; X50.1XXA Overexertion from prolonged static or awkward postures, initial encounter; Y93.01 Activity, walking, marching and hiking
CPT/HCPCS: 36415; 73610-TC-RT-FY; 73630-TC-RT-FY; 80053; 83735; 84100; 85025; 85610; 85730; 86850; 86900; 86901; 93971-TC; 99285-25